=== PATIENT | male | born 1960 | race Caucasian/White ===

== ENCOUNTER 2017-08-02 15:44 | Inpatient (IN) | payer MEDICARE, OTHER ==
[~2017-08-02] VITALS: Ht 165.1 cm; Wt 68.8 kg
[2017-08-02 16:01] VITALS: BP 144/99; PULSE 75; RESP 16; TEMP 98.6; O2SAT 100
--- NOTE | 2017-08-02 16:08 | PD ---
HPI Chief Complaint: Psychiatric Symptoms Time Seen by Provider: 15:53 Travel History International Travel<30 days: No Contact w/Intl Traveler<30days: No Traveled to known affect area: No History of Present Illness HPI Patient was James acted and brought in for psychiatric evaluation. Patient was at a penitentiary. Patient was found combative, demented, unable to care for himself. Patient denies any headache. Patient denies chest pain or shortness of breath. Patient denies abdominal pain. Patient would not tell me about his past medical history. Patient would not tell me if he is on any routine medication. Patient would not tell me his allergy. PFSH Social History Tobacco Use: No Allergies-Medications (Allergen,Severity, Reaction): Coded Allergies: Unable to Assess (Verified Allergy, Unknown, 08/02/17) Review of Systems General / Constitutional: No: Fever Eyes: No: Visual changes HENT: No: Headaches Cardiovascular: No: Chest Pain or Discomfort Respiratory: No: Shortness of Breath Gastrointestinal: No: Abdominal Pain Genitourinary: No: Dysuria Musculoskeletal: No: Pain Skin: No Rash Neurologic: No: Weakness Psychiatric: No: Depression Endocrine: No: Polydipsia Hematologic/Lymphatic: No: Easy Bruising Physical Exam Narrative GENERAL: Well-nourished, well-developed patient. SKIN: Focused skin assessment warm/dry. HEAD: Normocephalic. EYES: No scleral icterus. No injection or drainage. NECK: Supple, trachea midline. No JVD or lymphadenopathy. CARDIOVASCULAR: Regular rate and rhythm without murmurs, gallops, or rubs. RESPIRATORY: Breath sounds equal bilaterally. No accessory muscle use. GASTROINTESTINAL: Abdomen soft, non-tender, nondistended. MUSCULOSKELETAL: No cyanosis, or edema. BACK: Nontender without obvious deformity. No CVA tenderness. Neurologic exam: Patient awake and alert. Patient sometimes combative. Patient responded to questions occasionally. Patient moves all extremity well. No obvious focal neurological deficit. Data Data Last Documented VS Vital Signs Date Time Temp Pulse Resp B/P (MAP) Pulse Ox O2 Delivery O2 Flow Rate FiO2 08/02/17 16:01 98.6 75 16 144/99 (114) 100 Orders Orders Haloperidol Inj (Haldol Inj) (08/02/17 16:15) Lorazepam Inj (Ativan Inj) (08/02/17 16:15) Complete Blood Count With Diff (08/02/17 16:57) Comprehensive Metabolic Panel (08/02/17 16:57) Psych Screen (08/02/17 16:57) Drug Screen, Random Urine (08/02/17 16:57) MDM Medical Decision Making Medical Screen Exam Complete: Yes Emergency Medical Condition: Yes Differential Diagnosis Differential diagnosis including dementia, psychosis, schizophrenia, personality disorder. Narrative Course 57-year-old male with confusion, combative. History of dementia. Haldol 5 mg IM and Ativan 2 mg IM given. Vu Lanier MD Aug 02, 2017 16:08
[2017-08-02] MEDS ORDERED: LORazepam 2 MG/ML VIAL IM ONE (16:15)
[2017-08-02] MEDS ORDERED: HALOPERIDOL LACTATE 5 MG/ML AMP IM ONE (16:15)
[2017-08-02 17:53] LABS: AUTOMATED NEUTROPHIL # 6.6 TH/MM3 (1.8-7.7); BASOPHIL % 0.3 % (0.0-2.0); EOSINOPHIL % 0.2 % (0.0-4.0); HEMATOCRIT 39.6 % (39.0-51.0); HEMOGLOBIN 13.8 GM/DL (13.0-17.0); LYMPH % 17.2 % (9.0-44.0); LYMPHOCYTE # 1.5 TH/MM3 (1.0-4.8); MEAN CELL VOLUME 89.8 FL (80.0-100.0); MEAN CORPUSCULAR HEMOGLOBIN 31.2 PG (27.0-34.0); MEAN CORPUSCULAR HGB CONC 34.7 % (32.0-36.0); MEAN PLATELET VOLUME 8.2 FL (7.0-11.0); MONO % 4.7 % (0.0-8.0); MONOCYTE # 0.4 TH/MM3 (0-0.9); NEUT % 77.6 % (16.0-70.0); PLATELET COUNT 215 TH/MM3 (150-450); RED BLOOD COUNT 4.41 MIL/MM3 (4.50-5.90); RED CELL DISTRIBUTION WIDTH 12.8 % (11.6-17.2); WHITE BLOOD COUNT 8.5 TH/MM3 (4.0-11.0)
[2017-08-02 18:18] LABS: ALBUMIN 3.4 GM/DL (3.4-5.0); ALT (GPT) 21 U/L (12-78); AST (GOT) 28 U/L (15-37); BICARBONATE 24.6 MEQ/L (21.0-32.0); BLOOD UREA NITROGEN 11 MG/DL (7-18); CALCIUM 8.8 MG/DL (8.5-10.1); CHLORIDE 107 MEQ/L (98-107); CREATININE 0.85 MG/DL (0.60-1.30); GLOMERULAR FILTRATION RATE 94 ML/MIN (>89); GLUCOSE,RANDOM 104 MG/DL (74-106); SODIUM (NA) 139 MEQ/L (136-145)
[2017-08-02 18:21] LABS: ALKALINE PHOSPHATASE 106 U/L (45-117); TOTAL BILIRUBIN ADULT 0.5 MG/DL (0.2-1.0); TOTAL PROTEIN 6.4 GM/DL (6.4-8.2)
[2017-08-03 01:15] VITALS: BP 111/66; PULSE 82; RESP 16; O2SAT 95
[2017-08-03 01:25] VITALS: BP 131/72; PULSE 85; RESP 18; TEMP 97.6; O2SAT 98
[2017-08-03 09:30] VITALS: BP 111/66; PULSE 75; RESP 20
[2017-08-03 18:30] VITALS: BP 111/60; PULSE 79; RESP 16
[2017-08-04 06:14] VITALS: BP 129/65; PULSE 82; RESP 18; O2SAT 99
[2017-08-04 10:41] VITALS: BP 109/60; PULSE 72; RESP 18; TEMP 99.1; O2SAT 97
[2017-08-04] MEDS ORDERED: LORazepam 1 MG TAB PO PRN (13:00)
[2017-08-04] MEDS ORDERED: diphenhydrAMINE HCL 50 MG/ML VIAL IM PRN (13:00)
[2017-08-04] MEDS ORDERED: diphenhydrAMINE HCL 50 MG CAP PO PRN (13:00)
[2017-08-04] MEDS ORDERED: ALUMINUM/MAGNESIUM/SIMETH 30 ML CUP PO PRN (13:00)
[2017-08-04] MEDS ORDERED: ACETAMINOPHEN 325 MG TAB PO PRN (13:00)
[2017-08-04] MEDS ORDERED: MAGNESIUM HYDROXIDE SUSP 30 ML CUP PO PRN (13:00)
[2017-08-04] MEDS ORDERED: LORazepam 2 MG/ML VIAL IM PRN (13:00)
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
[2017-08-04 16:45] VITALS: BP 121/71; PULSE 62; RESP 16; TEMP 97.6; O2SAT 99
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
[2017-08-04] MEDS ORDERED: POTASSIUM CHLORIDE 20 MEQ CONTROLLED RELEASE TAB PO ONE (17:45)
[2017-08-05 05:47] VITALS: BP 115/61; PULSE 62; RESP 18; TEMP 98; O2SAT 98
[2017-08-05 08:57] LABS: AUTOMATED NEUTROPHIL # 5.1 TH/MM3 (1.8-7.7); BASOPHIL % 0.5 % (0.0-2.0); EOSINOPHIL # 0.1 TH/MM3 (0-0.4); EOSINOPHIL % 1.4 % (0.0-4.0); HEMATOCRIT 40.4 % (39.0-51.0); HEMOGLOBIN 13.6 GM/DL (13.0-17.0); LYMPH % 26.1 % (9.0-44.0); MEAN CELL VOLUME 90.5 FL (80.0-100.0); MEAN CORPUSCULAR HEMOGLOBIN 30.4 PG (27.0-34.0); MEAN CORPUSCULAR HGB CONC 33.6 % (32.0-36.0); MONO % 4.9 % (0.0-8.0); MONOCYTE # 0.4 TH/MM3 (0-0.9); NEUT % 67.1 % (16.0-70.0); PLATELET COUNT 210 TH/MM3 (150-450); RED BLOOD COUNT 4.47 MIL/MM3 (4.50-5.90); WHITE BLOOD COUNT 7.6 TH/MM3 (4.0-11.0)
--- NOTE | 2017-08-05 09:09 | HHI.PYPN ---
Subjective Remarks Patient seen and examined with nurse. Chart reviewed. Case discussed with nursing staff. On my examination today, the patient presents as an extremely vague historian. He is oriented to person, place and year. He gives the month as August. His registration is 3 out of 3 in his recall is one out of 3 at 5 minutes. He is able to spell the word world forwards and gives it backwards as DLORW. Mood is "fine," sleep and appetite fair. Denies any suicidal or homicidal ideation. Denies any audiovisual hallucinations. No physical complaints at this time. Patient apparently follows at [facility]. I called over to [facility] to get up-to-date med list. Last Rx is from June for: Risperdal 2mg PO BID Cogentin 2mg PO BID. Review of Systems ROS Limitations: Poor Historian Except as stated in HPI: all other systems reviewed are Neg Mental Status Examination Appearance: Appropriate Consciousness: Alert Orientation: Person, Place, Date/Time (year) Motor Activity: Other (no motor abnormalities noted) Speech: Hesitant, Slow Language: Adequate Fund of Knowledge: Adequate Attention and Concentration: Inadequate Memory: Impaired (see above) Mood: Other ("fine") Affect: Flat Thought Process & Associations: Linear (somewhat slowed) Thought Content: Other (vague) Hallucination Type: None Delusion Type: None Suicidal Ideation: No Suicidal Plan: No Suicidal Intention: No Homicidal Ideation: No Homicidal Plan: No Homicidal Intention: No Insight: Fair Judgment: Adequate (perhaps fair) Results Labs Test 08/05/17 07:30 White Blood Count 7.6 TH/MM3 Red Blood Count 4.47 MIL/MM3 Hemoglobin 13.6 GM/DL Hematocrit 40.4 % Mean Corpuscular Volume 90.5 FL Mean Corpuscular Hemoglobin 30.4 PG Mean Corpuscular Hemoglobin Concent 33.6 % Red Cell Distribution Width 13.0 % Platelet Count 210 TH/MM3 Mean Platelet Volume 8.0 FL Neutrophils (%) (Auto) 67.1 % Lymphocytes (%) (Auto) 26.1 % Monocytes (%) (Auto) 4.9 % Eosinophils (%) (Auto) 1.4 % Basophils (%) (Auto) 0.5 % Neutrophils # (Auto) 5.1 TH/MM3 Lymphocytes # (Auto) 2.0 TH/MM3 Monocytes # (Auto) 0.4 TH/MM3 Eosinophils # (Auto) 0.1 TH/MM3 Basophils # (Auto) 0.0 TH/MM3 CBC Comment DIFF FINAL Differential Comment Labs reviewed. I note hypokalemia has resolved. EKG sinus bradycardia QTc 408ms. 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 To consider DUFF antipsychotic such as Consta or Sustenna. Follow-up OT eval. Continue to monitor on inpatient unit. Hospitalist input noted and appreciated. Continue other meds and care as ordered. Pt may sign voluntary. Justification for Cont. Inpt. Monitoring for impairments in safety Discharge Planning ELOS: 3-5 days. Request HC Surrog/Guard Advoc?: No Neal Ortiz MD Aug 05, 2017 09:09
[2017-08-05 09:43] LABS: ALBUMIN 2.9 GM/DL (3.4-5.0); AST (GOT) 15 U/L (15-37); BICARBONATE 25.8 MEQ/L (21.0-32.0); BLOOD UREA NITROGEN 7 MG/DL (7-18); CALCIUM 8.5 MG/DL (8.5-10.1); CHLORIDE 108 MEQ/L (98-107); CREATININE 0.69 MG/DL (0.60-1.30); GLOMERULAR FILTRATION RATE 119 ML/MIN (>89); GLUCOSE,RANDOM 85 MG/DL (74-106); SODIUM (NA) 141 MEQ/L (136-145)
[2017-08-05 09:45] LABS: CHOLESTEROL 138 MG/DL (120-200); TRIGLYCERIDES 110 MG/DL (42-150)
[2017-08-05 09:57] LABS: ALKALINE PHOSPHATASE 101 U/L (45-117); ALT (GPT) 20 U/L (12-78); CHOLESTEROL/ HDL RATIO 3.32 RATIO; HDL CHOLESTEROL 41.5 MG/DL (40.0-60.0); LDL CHOLESTEROL 75 MG/DL (0-99); TOTAL BILIRUBIN ADULT 0.2 MG/DL (0.2-1.0); TOTAL PROTEIN 5.5 GM/DL (6.4-8.2)
--- NOTE | 2017-08-05 12:18 | EKG ---
Date Performed: 08/05/2017 Time Performed: 07:51:14 PTAGE: 57 years EKG: SINUS BRADYCARDIA WITH SINUS ARRHYTHMIA BORDERLINE ECG NO PREVIOUS TRACING DOCTOR: Neal Page Interpretating Date/Time 08/05/2017 12:13:28
[2017-08-05 17:37] VITALS: BP 92/50; PULSE 59; RESP 18; TEMP 97.9; O2SAT 98
[2017-08-05] MEDS: risperiDONE ODT 2 MG TAB PO SCH (20:32)
[2017-08-05] MEDS: BENZTROPINE MESYLATE 2 MG TAB PO SCH (20:32)
[2017-08-06 05:46] VITALS: BP 106/65; PULSE 58; RESP 16; TEMP 97.2; O2SAT 98
[2017-08-06] MEDS: risperiDONE ODT 2 MG TAB PO SCH ×2 (08:45→20:54)
[2017-08-06] MEDS: BENZTROPINE MESYLATE 2 MG TAB PO SCH ×2 (08:45→20:53)
--- NOTE | 2017-08-06 08:55 | HHI.PYPN ---
Subjective Remarks Patient seen and examined. Chart reviewed. Case discussed in treatment team. Nurse reports that patient is complaining of headache but otherwise has been no significant behavioral problem. On my examination today, the patient reports mood is "fine." Affect remains flat. Denies any AVH. Denies SI or HI. Reports that he was in sober living because of cannabis use. Denies side effects from medications. Complains of left-sided headache with possible photophobia. Says that this is a typical headache for him and that he usually gets relief from Aleve. No other physical complaints. Review of Systems ROS Limitations: Poor Historian Except as stated in HPI: all other systems reviewed are Neg Mental Status Examination Appearance: Appropriate Consciousness: Alert Orientation: Person, Place (at least) Motor Activity: Other (no motor abnormalities noted) Speech: Slow Language: Adequate Fund of Knowledge: Adequate Attention and Concentration: Inadequate Mood: Other ("fine") Affect: Flat Thought Process & Associations: Linear (somewhat slowed) Thought Content: Other (vague) Hallucination Type: None Delusion Type: None Suicidal Ideation: No Suicidal Plan: No Suicidal Intention: No Homicidal Ideation: No Homicidal Plan: No Homicidal Intention: No Insight: Fair Judgment: Adequate (perhaps fair) Results Labs Labs reviewed Vitals/IOs Vital Signs Date Time Temp Pulse Resp B/P (MAP) Pulse Ox O2 Delivery O2 Flow Rate FiO2 08/06/17 05:46 97.2 58 16 106/65 (79) 98 08/04/17 10:41 Room Air Assessment & Plan Problem List: (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 I did offer the patient a long -acting injectable antipsychotic but he is not presently interested in this option. Naproxen for headache. Continue to monitor on the inpatient unit. Continue other medications and care as ordered. Justification for Cont. Inpt. Risk for decompensation. Discharge Planning Case discussed with counselor. Could consider return to sober living versus other placement. Request HC Surrog/Guard Advoc?: No Neal Ortiz MD Aug 06, 2017 08:55
[2017-08-06] MEDS ORDERED: NAPROXEN 500 MG TAB PO PRN (09:00)
--- NOTE | 2017-08-06 15:24 | PD.TTN ---
Patient Problems 1. Discharge planning 2. Medication compliance 3. Knowledge deficit 4. Lack of coping skills Progress Toward Goals Provider Present: Dr. Angelika Ortiz Provider Input: Pt medication regiment is being evaluated including possible addition of a mood stabilizer. Nurse(s) Present: Anisha Justice, RN Nurse(s) Input: Pt appears paranoid, watchful, flat, to be responding to internal stimuli and with poor response on unit. Psychiatric Counselors Present: MIGUEL ANGEL Mars Psych Therapist Input: Pt appears paranoid, delusional, suspicious, organized, oriented and to be responding to internal stimuli. Insight into condition and need for care appeared poor. Pt appears to be able to utilize coping and emotional regulation skills as he has had no outbursts on unit. He is guarded and limited in his interaction at this time. Group Spec/RT/OT/RUBIN Present: SCOTTIE Durham Group Spec/RT/OT/RUBIN Input: Pt is unknown to RUBIN and did not attend groups. Discharge Plan SMA Pt will be discharged home and will be set up with outpatient follow up services for medication management. Documentation Scribe: MIGUEL ANGEL Mars Jonathan LMHC Aug 06, 2017 15:24
[2017-08-06 16:43] VITALS: BP 102/56; PULSE 78; RESP 18; TEMP 98.5; O2SAT 97
[2017-08-07 05:44] VITALS: BP 100/64; PULSE 64; RESP 16; TEMP 98.3; O2SAT 97
[2017-08-07] MEDS: risperiDONE ODT 2 MG TAB PO SCH (09:04)
[2017-08-07] MEDS: BENZTROPINE MESYLATE 2 MG TAB PO SCH ×2 (09:04→20:47)
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
[2017-08-07 17:41] VITALS: BP 116/69; PULSE 85; RESP 17; TEMP 98.9; O2SAT 98
[2017-08-07] MEDS: risperiDONE ODT 3 MG TAB PO SCH (20:47)
[2017-08-08 05:57] VITALS: BP 104/60; PULSE 64; RESP 16; TEMP 97.8; O2SAT 98
[2017-08-08] MEDS: BENZTROPINE MESYLATE 2 MG TAB PO SCH ×3 (09:00→22:06)
[2017-08-08] MEDS: risperiDONE ODT 3 MG TAB PO SCH ×2 (09:00→21:58)
--- NOTE | 2017-08-08 11:03 | HHI.PYPN ---
Subjective Remarks Patient seen and examined with counselor and nurse. Chart reviewed. Case discussed with counselor and nurse. No behavioral issues noted overnight. Counselor notes the patient is not welcome to return to [facility], and counselor is looking into alternative placements such as [facility] [place]. On my examination today, the patient seems more interactive with less thought blocking since Risperdal was titrated. He denies AVH. He denies SI or HI. He complains of some subjective stiffness since Risperdal was titrated, but there is no objective evidence on exam. Indeed, when I examined the patient for cogwheeling or stiffness, he purposefully increases his tone to simulate hypertonia, although this disappears with distraction. He remains a little suspicious of medications and declines long-acting injectable antipsychotic when offered. Some mild constipation; still passing flatus. Declines bowel regimen when offered. No other physical complaints or side effects reported. Review of Systems ROS Limitations: Poor Historian Except as stated in HPI: all other systems reviewed are Neg Mental Status Examination Appearance: Appropriate Consciousness: Alert Orientation: Person, Place Motor Activity: Other (no hand tremor, no cogwheeling, no increased muscle tone. No dystonias or dyskinesias noted. No other motor abnormalities noted.) Speech: Slow Language: Adequate Fund of Knowledge: Adequate Attention and Concentration: Adequate Memory: Unremarkable Mood: Other (mildly dysphoric) Affect: Blunt (a little more reactive today) Thought Process & Associations: Linear Thought Content: Thought blocking (decreased), Other (vague) Hallucination Type: None Delusion Type: None Suicidal Ideation: No Suicidal Plan: No Suicidal Intention: No Homicidal Ideation: No Homicidal Plan: No Homicidal Intention: No Insight: Fair Judgment: Adequate (fair at best) Results Labs Labs reviewed. No new labs. 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 Patient continues to decline a long-acting injectable antipsychotic. Patient requesting titration of Cogentin to target subjective stiffness, although there is no objective evidence of this on exam. I have discussed with him the risks and benefits of such a maneuver, and he persists in his desire to titrate the Cogentin. Increase Cogentin to 2 mg 3 times daily. Continue to monitor on the inpatient unit. Continue other medications and care as ordered. Justification for Cont. Inpt. Med changes. Risk for decompensation in less restrictive environment. Discharge Planning Counselor exploring alternative placement options. Request HC Surrog/Guard Advoc?: No Neal Ortiz MD Aug 08, 2017 11:03
[2017-08-08 17:54] VITALS: BP 122/69; PULSE 68; RESP 16; TEMP 97.8; O2SAT 98
[2017-08-09 05:37] VITALS: BP 116/65; PULSE 97; RESP 18; TEMP 97.9; O2SAT 97
[2017-08-09] MEDS: risperiDONE ODT 3 MG TAB PO SCH ×2 (08:38→21:01)
[2017-08-09] MEDS: BENZTROPINE MESYLATE 2 MG TAB PO SCH ×3 (08:38→21:01)
--- NOTE | 2017-08-09 10:00 | HHI.PYPN ---
Subjective Remarks Patient seen and examined. Chart reviewed. Case discussed in treatment team. Per nursing staff, patient is medication compliant but seclusive to room. On my examination today, the patient reports mood is stable. He denies any suicidal or homicidal ideation. Denies any audiovisual hallucinations. I can elicit no delusional material. Denies side effects from medications. Says increased dose of Cogentin is helping with subjective stiffness. No other physical complaints. He continues to decline long-acting injectable antipsychotic. Remains agreeable to assisted living placement. Review of Systems Except as stated in HPI: all other systems reviewed are Neg Mental Status Examination Appearance: Appropriate Consciousness: Alert Orientation: Person, Place Motor Activity: Other (no motor abnormalities noted.) Speech: Unremarkable Language: Adequate Fund of Knowledge: Adequate Attention and Concentration: Adequate Memory: Unremarkable Mood: Other (stable) Affect: Blunt (remains blunted if a little bit more reactive today) Thought Process & Associations: Logical, Linear Thought Content: Appropriate Hallucination Type: None Delusion Type: None Suicidal Ideation: No Suicidal Plan: No Suicidal Intention: No Homicidal Ideation: No Homicidal Plan: No Homicidal Intention: No Insight: Fair Judgment: Adequate (fair) Results Labs Labs reviewed. No new labs. 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 Patient continues to decline long- acting injectable. Continue to monitor on the inpatient unit. Continue other medications and care as ordered. Justification for Cont. Inpt. Risk for decompensation in less restrictive environment. Discharge Planning Counselor working on [facility] placement. Anticipate discharge Saturday. Request HC Surrog/Guard Advoc?: No Neal Ortiz MD Aug 09, 2017 10:00
--- NOTE | 2017-08-09 15:00 | PD.TTN ---
Patient Problems 1. Discharge planning 2. Medication compliance 3. Knowledge deficit 4. Lack of coping skills Progress Toward Goals Provider Present: Dr. Angelika Ortiz Provider Input: Pt medication regiment is being evaluated including possible addition of a mood stabilizer. 08-09-17, OT evaluation requested, and further medical stabilization requested. Nurse(s) Present: Anisha Justice, RN Nurse(s) Input: Pt appears paranoid, watchful, flat, to be responding to internal stimuli and with poor response on unit. Psychiatric Counselors Present: MIGUEL ANGEL Mars [address] Jennings, Jr., [facility] Psych Therapist Input: Pt appears paranoid, delusional, suspicious, organized, oriented and to be responding to internal stimuli. Insight into condition and need for care appeared poor. Pt appears to be able to utilize coping and emotional regulation skills as he has had no outbursts on unit. He is guarded and limited in his interaction at this time. 08-09-17, Imtiaz from [place] will meet with pt on 08-10-17 to assess for placement. Group Spec/RT/OT/RUBIN Present: SCOTTIE Durham Group Spec/RT/OT/RUBIN Input: Pt is unknown to RUBIN and did not attend groups. Occupational Therapist Input: Poor attendance in groups, recieving skilled occupational therapy . Discharge Plan SMA Pt will be discharged home and will be set up with outpatient follow up services for medication management. Documentation Scribe: MIGUEL ANGEL Mars Lane Jr, [facility] Aug 09, 2017 15:00
--- NOTE | 2017-08-09 15:00 | PD.TTN ---
Patient Problems 1. Discharge planning 2. Medication compliance 3. Knowledge deficit 4. Lack of coping skills Progress Toward Goals Provider Present: Dr. Angelika Ortiz Provider Input: Pt medication regiment is being evaluated including possible addition of a mood stabilizer. 08-09-17, OT evaluation requested, and further medical stabilization requested. Nurse(s) Present: Anisha Justice, RN Nurse(s) Input: Pt appears paranoid, watchful, flat, to be responding to internal stimuli and with poor response on unit. Psychiatric Counselors Present: MIGUEL ANGEL [address] Jennings, Jr., [facility] Psych Therapist Input: Pt appears paranoid, delusional, suspicious, organized, oriented and to be responding to internal stimuli. Insight into condition and need for care appeared poor. Pt appears to be able to utilize coping and emotional regulation skills as he has had no outbursts on unit. He is guarded and limited in his interaction at this time. 08-09-17, Imtiaz from [facility] will meet with pt on 08-10-17 to assess for placement. Group Spec/RT/OT/RUBIN Present: SCOTTIE Durham Group Spec/RT/OT/RUBIN Input: Pt is unknown to RUBIN and did not attend groups. Occupational Therapist Input: Poor attendance in groups, recieving skilled occupational therapy . Discharge Plan SMA Pt will be discharged home and will be set up with outpatient follow up services for medication management. Documentation Scribe: MIGUEL AGNEL Mars Lane Jr, SILK FOLDER Aug 09, 2017 15:00
--- NOTE | 2017-08-09 15:00 | PD.TTN ---
Patient Problems 1. Discharge planning 2. Medication compliance 3. Knowledge deficit 4. Lack of coping skills Progress Toward Goals Provider Present: Dr. Angelika Ortiz Provider Input: Pt medication regiment is being evaluated including possible addition of a mood stabilizer. 08-09-17, OT evaluation requested, and further medical stabilization requested. Nurse(s) Present: Anisha Justice, RN Nurse(s) Input: Pt appears paranoid, watchful, flat, to be responding to internal stimuli and with poor response on unit. Psychiatric Counselors Present: MIGUEL ANGEL Mars Lane Jennings, Jr., [facility] Psych Therapist Input: Pt appears paranoid, delusional, suspicious, organized, oriented and to be responding to internal stimuli. Insight into condition and need for care appeared poor. Pt appears to be able to utilize coping and emotional regulation skills as he has had no outbursts on unit. He is guarded and limited in his interaction at this time. 08-09-17, Imtiaz from [place] will meet with pt on 08-10-17 to assess for placement. Group Spec/RT/OT/RUBIN Present: SCOTTIE Durham Group Spec/RT/OT/RUBIN Input: Pt is unknown to RUBIN and did not attend groups. Occupational Therapist Input: Poor attendance in groups, recieving skilled occupational therapy . Discharge Plan SMA Pt will be discharged home and will be set up with outpatient follow up services for medication management. Documentation Scribe: MIGUEL ANGEL Mars Lane Jr, PRINTER TECHNICIAN Aug 09, 2017 15:00
[2017-08-09 17:30] VITALS: BP 114/71; PULSE 97; RESP 18; TEMP 98.3; O2SAT 97
[2017-08-10 05:49] VITALS: BP 116/65; PULSE 65; RESP 18; TEMP 97.5; O2SAT 97
[2017-08-10] MEDS: BENZTROPINE MESYLATE 2 MG TAB PO SCH ×3 (08:39→20:27)
[2017-08-10] MEDS: risperiDONE ODT 3 MG TAB PO SCH ×2 (08:39→20:27)
--- NOTE | 2017-08-10 11:20 | HHI.PYPN ---
Subjective Remarks Pt seen and discussed with staff. Chart reviewed. He is compliant with medications and denies side effects. He has been seclusive to room, only coming out for room. He interacts minimally on unit and is very flat of affect. No aggression. No SI/HI He states that he thinks risperidone is helping with mood swings and he is feeling less irritable. Mental Status Examination Appearance: Appropriate Consciousness: Alert Orientation: Person, Place Motor Activity: Other (no motor abnormalities noted.) Speech: Unremarkable Language: Adequate Fund of Knowledge: Adequate Attention and Concentration: Adequate Memory: Unremarkable Mood: Other (calm) Affect: Blunt Thought Process & Associations: Logical, Linear Thought Content: Appropriate Hallucination Type: None Delusion Type: None Suicidal Ideation: No Suicidal Plan: No Suicidal Intention: No Homicidal Ideation: No Homicidal Plan: No Homicidal Intention: No Insight: Fair Judgment: Adequate Results Vitals/IOs Vital Signs Date Time Temp Pulse Resp B/P (MAP) Pulse Ox O2 Delivery O2 Flow Rate FiO2 08/10/17 05:49 97.5 65 18 116/65 (82) 97 Assessment & Plan Problem List: (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 Continue current tx plan. Estimated LOS: days Justification for Cont. Inpt. risk of decompensation Request HC Surrog/Guard Advoc?: Riana Cortés MD Aug 10, 2017 11:20
[2017-08-10 18:01] VITALS: BP 120/76; PULSE 67; RESP 16; TEMP 98.2; O2SAT 99
[2017-08-11 05:58] VITALS: BP 150/64; PULSE 104; RESP 18; TEMP 98.4; O2SAT 97
[2017-08-11] MEDS: risperiDONE ODT 3 MG TAB PO SCH ×2 (08:24→20:54)
[2017-08-11] MEDS: BENZTROPINE MESYLATE 2 MG TAB PO SCH ×3 (08:24→20:54)
--- NOTE | 2017-08-11 13:07 | HHI.PYPN ---
Subjective Remarks Pt seen and discussed with staff. Pt has been seclusive to room but has been pleasant and cooperative. He has been compliant iw medications and denies side effects. No SI/HI. He is disheveled. No behavioral problems. Mental Status Examination Appearance: Appropriate Consciousness: Alert Orientation: Person, Place Motor Activity: Other (no motor abnormalities noted.) Speech: Unremarkable Language: Adequate Fund of Knowledge: Adequate Attention and Concentration: Adequate Memory: Unremarkable Mood: Other (calm) Affect: Blunt Thought Process & Associations: Logical, Linear Thought Content: Appropriate Hallucination Type: None Delusion Type: None Suicidal Ideation: No Suicidal Plan: No Suicidal Intention: No Homicidal Ideation: No Homicidal Plan: No Homicidal Intention: No Insight: Fair Judgment: Adequate Results Vitals/IOs Vital Signs Date Time Temp Pulse Resp B/P (MAP) Pulse Ox O2 Delivery O2 Flow Rate FiO2 08/11/17 05:58 98.4 104 18 150/64 (92) 97 Assessment & Plan Problem List: (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 Estimated LOS: days Justification for Cont. Inpt. risk of decompensation Request HC Surrog/Guard Advoc?: No Riana Pope MD Aug 11, 2017 13:06
[2017-08-11 17:10] VITALS: BP 118/66; PULSE 86; RESP 18; TEMP 98.5; O2SAT 96
[2017-08-12] MEDS: risperiDONE ODT 3 MG TAB PO SCH (08:56)
[2017-08-12] MEDS: BENZTROPINE MESYLATE 2 MG TAB PO SCH ×2 (08:56→13:17)
[2017-08-12] MEDS ORDERED: Benztropine PO (10:37)
[2017-08-12] MEDS ORDERED: RISP3 PO (10:37)
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
== END 2017-08-12 15:40 | DRG 885 ==
LOC: NEPD 15:44 → NEDA 08-04 12:50 → H270 08-04 15:32
PROVIDERS: ADMIT Psychiatry & Neurology Psychiatry; ATTEND Psychiatry & Neurology Psychiatry
DX: F20.5 Residual schizophrenia (principal); R64 Cachexia; E46 Unspecified protein-calorie malnutrition; Z91.19 Patient's noncompliance with other medical treatment and regimen; I10 Essential (primary) hypertension; F17.210 Nicotine dependence, cigarettes, uncomplicated; E87.6 Hypokalemia; Z68.25 Body mass index [BMI] 25.0-25.9, adult; R51 Headache
CPT/HCPCS: 80053; 80061; 80307; 83036; 84443; 85025; 93005; 96372; J1630; J2060

== ENCOUNTER 2017-09-09 21:23 | Inpatient (IN) | payer MEDICARE ==
[~2017-09-09] VITALS: Ht 170.2 cm; Wt 67.0 kg
[~2017-09-09 21:23] MED LIST: Benztropine PO; RISP3 PO
[2017-09-09 22:15] VITALS: BP 150/89; PULSE 75; RESP 18; O2SAT 98
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
[2017-09-10 00:15] LABS: BASOPHIL # 0.1 TH/MM3 (0-0.2); BASOPHIL % 0.5 % (0.0-2.0); EOSINOPHIL % 0.5 % (0.0-4.0); HEMATOCRIT 40.1 % (39.0-51.0); HEMOGLOBIN 13.7 GM/DL (13.0-17.0); LYMPH % 22.4 % (9.0-44.0); LYMPHOCYTE # 2.2 TH/MM3 (1.0-4.8); MEAN CELL VOLUME 91.9 FL (80.0-100.0); MEAN CORPUSCULAR HEMOGLOBIN 31.3 PG (27.0-34.0); MEAN CORPUSCULAR HGB CONC 34.1 % (32.0-36.0); MEAN PLATELET VOLUME 7.5 FL (7.0-11.0); MONO % 5.4 % (0.0-8.0); MONOCYTE # 0.5 TH/MM3 (0-0.9); NEUT % 71.2 % (16.0-70.0); PLATELET COUNT 206 TH/MM3 (150-450); RED BLOOD COUNT 4.37 MIL/MM3 (4.50-5.90); RED CELL DISTRIBUTION WIDTH 13.3 % (11.6-17.2); WHITE BLOOD COUNT 9.8 TH/MM3 (4.0-11.0)
[2017-09-10 00:33] LABS: ALBUMIN 3.3 GM/DL (3.4-5.0); AST (GOT) 12 U/L (15-37); BICARBONATE 28.5 MEQ/L (21.0-32.0); BLOOD UREA NITROGEN 9 MG/DL (7-18); CALCIUM 8.7 MG/DL (8.5-10.1); CHLORIDE 108 MEQ/L (98-107); GLOMERULAR FILTRATION RATE 100 ML/MIN (>89); GLUCOSE,RANDOM 127 MG/DL (74-106); SODIUM (NA) 143 MEQ/L (136-145)
[2017-09-10 00:36] LABS: ALKALINE PHOSPHATASE 88 U/L (45-117); ALT (GPT) 19 U/L (12-78); TOTAL BILIRUBIN ADULT 0.2 MG/DL (0.2-1.0); TOTAL PROTEIN 6.1 GM/DL (6.4-8.2)
[2017-09-10 06:43] VITALS: BP 148/73; PULSE 64; RESP 18
[2017-09-10 10:24] VITALS: BP 143/78; PULSE 71; RESP 18; O2SAT 100
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
[2017-09-10] MEDS ORDERED: ACETAMINOPHEN 325 MG TAB PO PRN (15:00)
[2017-09-10] MEDS ORDERED: ALUMINUM/MAGNESIUM/SIMETH 30 ML CUP PO PRN (15:00)
[2017-09-10] MEDS ORDERED: diphenhydrAMINE HCL 50 MG/ML VIAL IM PRN (15:00)
[2017-09-10] MEDS ORDERED: MAGNESIUM HYDROXIDE SUSP 30 ML CUP PO PRN (15:00)
[2017-09-10 15:42] VITALS: BP 124/62; PULSE 67; RESP 16; O2SAT 98
[2017-09-10 16:57] VITALS: BP 124/62; PULSE 67; RESP 16; O2SAT 98
[2017-09-10 19:15] VITALS: BP 130/78; PULSE 74; TEMP 98; O2SAT 99
[2017-09-10] MEDS: diphenhydrAMINE HCL 50 MG CAP PO PRN ×2 (20:44→20:51)
[2017-09-11 05:40] VITALS: RESP 17; TEMP 97.3; O2SAT 99
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
[2017-09-11] MEDS ORDERED: ARIPiprazole 15 MG TAB PO SCH (12:15)
[2017-09-11] MEDS ORDERED: LORazepam 2 MG/ML VIAL IM PRN (12:15)
[2017-09-11] MEDS ORDERED: LORazepam 1 MG TAB PO PRN (12:15)
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
[2017-09-12 05:58] VITALS: PULSE 89; RESP 18; TEMP 97.6; O2SAT 97
--- NOTE | 2017-09-12 12:48 | HHI.PYPN ---
Subjective Chief Complaint: Psychosis Remarks Patient seen and examined. Chart reviewed. Case discussed with nursing staff. No issues overnight. On my examination today, patient is secluding in his room. He remains internally stimulated and continues to mutter to himself at times. Psychotropics are unfortunately on hold for lack of consent, and I have tried to obtain from the patient the name of a contact who might service healthcare surrogate, but he cannot provide me with one. I have asked a counselor to further investigate whether a healthcare surrogate might be found in advance of the [place] act court next . No SI or HI. No physical complaints. Review of Systems ROS Limitations: Psychotic, Poor Historian Except as stated in HPI: all other systems reviewed are Neg Mental Status Examination Appearance: Disheveled Consciousness: Alert Orientation: Person Motor Activity: Other (no abnormal motor movements noted) Speech: Other (continues to mutter to himself) Language: Adequate, Other Fund of Knowledge: Adequate Attention and Concentration: Easily Distracted Mood: Other (calm) Affect: Flat Thought Process & Associations: Circumstantial Thought Content: Hallucinations, Delusional Hallucination Type: Auditory (remains frankly internally stimulated) Delusion Type: Paranoid Suicidal Ideation: No (unreliable to contract for safety) Suicidal Plan: No Suicidal Intention: No Homicidal Ideation: No (unreliable to contract for safety) Homicidal Plan: No Homicidal Intention: No Insight: Poor Judgment: Poor Results Labs Labs reviewed. No new labs. Prolactin level listed as "in process." Vitals/IOs Vital Signs Date Time Temp Pulse Resp B/P (MAP) Pulse Ox O2 Delivery O2 Flow Rate FiO2 09/12/17 05:58 97.6 89 18 97 09/11/17 05:40 09/10/17 16:57 Room Air Assessment & Plan Problem List: (1) Schizophrenia, undifferentiated, acute episode ICD Codes: F20.3 - Undifferentiated schizophrenia Assessment & Plan Psychotropics on hold awaiting consent. Counselor to investigate for possible healthcare surrogate to provide consent. EEG ordered, pending. Continue to monitor on high acuity unit. Continue other medications and care as ordered. Justification for Cont. Inpt. Impairment in reality construction. Concern for impairment in self-care. High risk for decompensation in less restrictive environment. Discharge Planning Pending psychiatric stabilization. Request HC Surrog/Guard Advoc?: Yes Neal Ortiz MD Sep 12, 2017 12:48
--- NOTE | 2017-09-13 11:07 | HHI.PYPN ---
Subjective Chief Complaint: Psychosis Remarks Patient seen and examined with nurse in counselor. Chart reviewed. Case discussed in treatment team. On my examination today, the patient remains floridly psychotic. Psychotropics are on hold unfortunately for lack of anyone to provide consent as the patient is incapacitated to provide consent. He remains internally stimulated and muttering to himself. Whenever I ask him about a psychiatric symptom, he once again mutters to himself the content of his AH. For example, when I ask if he is experiencing AH, he mutters to himself "they [i.e. team] don't need to know" and then answers me "no." He denies SI or HI but is clearly unreliable to contract for safety in his present state. We tried to obtain a contact number from him for someone to serve as healthcare surrogate. He did give the number for an aunt, Lawson, . Counselor and I both have tried to call this number and it rings without anyone picking up. No physical complaints. Review of Systems ROS Limitations: Psychotic, Poor Historian Except as stated in HPI: all other systems reviewed are Neg Mental Status Examination Appearance: Disheveled Consciousness: Alert Orientation: Person Motor Activity: Other (no abnormal motor movements noted) Speech: Other (continues again to mutter to himself) Language: Adequate, Other Fund of Knowledge: Adequate Attention and Concentration: Easily Distracted Mood: Other (calm) Affect: Flat Thought Process & Associations: Circumstantial Thought Content: Hallucinations, Delusional Hallucination Type: Auditory (remains internally stimulated) Delusion Type: Paranoid (remains highly paranoid) Suicidal Ideation: No (unreliable to contract for safety) Suicidal Plan: No Suicidal Intention: No Homicidal Ideation: No (unreliable to contract for safety) Homicidal Plan: No Homicidal Intention: No Insight: Poor Judgment: Poor Results Labs Labs reviewed. No new labs. Nurse tells me that patient flatly refused to participate in EEG. Vitals/IOs Vital Signs Date Time Temp Pulse Resp B/P (MAP) Pulse Ox O2 Delivery O2 Flow Rate FiO2 09/12/17 05:58 97.6 89 18 97 09/11/17 05:40 09/10/17 16:57 Room Air Assessment & Plan Problem List: (1) Schizophrenia, undifferentiated, acute episode ICD Codes: F20.3 - Undifferentiated schizophrenia Assessment & Plan Psychotropics remain on hold for lack of consent. We may try to reorder EEG if the patient is more compliant at some future point. Continue to monitor on the high acuity unit. Continue other medications and care as ordered. Justification for Cont. Inpt. Impairment in reality construction. High risk for decompensation in less restrictive environment. Discharge Planning Pending stabilization, although this will be considerably delayed if we cannot find someone to serve as health care surrogate. Request HC Surrog/Guard Advoc?: Yes Neal Ortiz MD Sep 13, 2017 11:07
--- NOTE | 2017-09-13 12:47 | PD.TTN ---
Patient Problems 1. Discharge planning 2. Medication compliance 3. Knowledge deficit 4. Lack of coping skills Progress Toward Goals Provider Present: Dr. Angelika Ortiz Provider Input: Pt remains psychotic, paranoid and medication regiment will continue to be evaluated as well as adjusted as needed. Psychiatric Counselors Present: MIGUEL ANGEL Mars Psych Therapist Input: Pt appears withdrawn, seclusive, psychotic, cooperative and appropriate. He continues to appear to be responding to internal stimuli. Pt presents with limited coping and emotional regulation skills. Pt has not been on medication to this point as team is awaiting HCS to provide consent for medication as he will not consent. Group Spec/RT/OT/RUBIN Present: SCOTTIE Durham Group Spec/RT/OT/RUBIN Input: Pt does not attend groups. Discharge Plan SMA Pt will likely need placement after discharge as he is currently homeless and will be referred to ALFs as he begins to stabilize further. Documentation Scribe: MIGUEL ANGEL Mars Jonathan LMHC Sep 13, 2017 12:47
--- NOTE | 2017-09-14 17:03 | HHI.PYPN ---
Subjective Chief Complaint: Psychosis Remarks Patient was seen and case discussed with nursing. Patient continues to have no guardian advocate and subsequently no medications on board. He is actively responding to voices during her interview. Fixed stare. Per nursing, he was saying the voices tell her not to talk to us. Try to run out of the unit when one of the staff members left. No ETO's today Mental Status Examination Appearance: Disheveled Consciousness: Alert Orientation: Person Motor Activity: Other (no abnormal motor movements noted) Speech: Other (continues again to mutter to himself) Language: Adequate, Other Fund of Knowledge: Adequate Attention and Concentration: Easily Distracted Mood: Other (calm) Affect: Flat Thought Process & Associations: Circumstantial Thought Content: Hallucinations, Delusional Hallucination Type: Auditory (remains internally stimulated) Delusion Type: Paranoid (remains highly paranoid) Suicidal Ideation: No (unreliable to contract for safety) Suicidal Plan: No Suicidal Intention: No Homicidal Ideation: No (unreliable to contract for safety) Homicidal Plan: No Homicidal Intention: No Insight: Poor Judgment: Poor Results Vitals/IOs Vital Signs Date Time Temp Pulse Resp B/P (MAP) Pulse Ox O2 Delivery O2 Flow Rate FiO2 09/12/17 05:58 97.6 89 18 97 09/11/17 05:40 09/10/17 16:57 Room Air Assessment & Plan Problem List: (1) Schizophrenia, undifferentiated, acute episode ICD Codes: F20.3 - Undifferentiated schizophrenia Assessment & Plan Continue current treatment plan Justification for Cont. Inpt. Patient would decompensate in a less restrictive setting Request HC Surrog/Guard Advoc?: Yes Clarence Guzman DO Sep 14, 2017 17:03
--- NOTE | 2017-09-15 15:46 | HHI.PYPN ---
Subjective Chief Complaint: Psychosis Remarks Patient was seen and case discussed with nursing. Patient remains seclusive to room. He is responding to internal stimuli during the interview looking about the room. He is disheveled and hypoverbal. Not a medication at this time. Nursing observed him having a full conversation with himself this morning Mental Status Examination Appearance: Disheveled Consciousness: Alert Orientation: Person Motor Activity: Other (no abnormal motor movements noted) Speech: Other (continues again to mutter to himself) Language: Adequate, Other Fund of Knowledge: Adequate Attention and Concentration: Easily Distracted Mood: Other (calm) Affect: Flat Thought Process & Associations: Loose associations Thought Content: Hallucinations, Delusional Hallucination Type: Auditory (remains internally stimulated) Delusion Type: Paranoid (remains highly paranoid) Suicidal Ideation: No (unreliable to contract for safety) Suicidal Plan: No Suicidal Intention: No Homicidal Ideation: No (unreliable to contract for safety) Homicidal Plan: No Homicidal Intention: No Insight: Poor Judgment: Poor Results Vitals/IOs Vital Signs Date Time Temp Pulse Resp B/P (MAP) Pulse Ox O2 Delivery O2 Flow Rate FiO2 09/12/17 05:58 97.6 89 18 97 Assessment & Plan Problem List: (1) Schizophrenia, undifferentiated, acute episode ICD Codes: F20.3 - Undifferentiated schizophrenia Assessment & Plan Continue current treatment plan Justification for Cont. Inpt. Patient would decompensate in a less restrictive setting Request HC Surrog/Guard Advoc?: Yes Clarence Guzman DO Sep 15, 2017 15:46
--- NOTE | 2017-09-16 09:15 | HHI.PYPN ---
Subjective Chief Complaint: Psychosis Remarks Patient seen and examined with nurse. Chart reviewed. Patient is taking his meals. Case discussed with nursing staff. Patient remains unmedicated for lack of HCS to provide consent for medications. Patient remains frankly internally stimulated. He continues to mutter to himself at intervals. I try to enter into a discussion with patient about medications to see if there was a chance he could provide consent, but he cannot follow this discussion because of his degree of psychotic impairment. He denies SI/HI. He concludes the interview by muttering to himself, "just walk away," at which point he arises, opens the door, and stands there expectantly until we depart. No physical complaints. Review of Systems ROS Limitations: Psychotic, Poor Historian Except as stated in HPI: all other systems reviewed are Neg Mental Status Examination Appearance: Disheveled Consciousness: Alert Orientation: Person Motor Activity: Other (No motor abnormalities noted) Speech: Other (continues to mutter to himself) Language: Adequate Fund of Knowledge: Adequate Attention and Concentration: Easily Distracted Mood: Other (calm) Affect: Flat (remains quite flat) Thought Process & Associations: Loose associations Thought Content: Hallucinations, Delusional Hallucination Type: Auditory (remains frankly internally stimulated) Delusion Type: Paranoid Suicidal Ideation: No (unreliable to contract for safety) Suicidal Plan: No Suicidal Intention: No Homicidal Ideation: No (unreliable to contract for safety) Homicidal Plan: No Homicidal Intention: No Insight: Poor Judgment: Poor Results Labs Labs reviewed. No new labs. Vitals/IOs Patient has refused vital signs since 09/12. Assessment & Plan Problem List: (1) Schizophrenia, undifferentiated, acute episode ICD Codes: F20.3 - Undifferentiated schizophrenia Assessment & Plan Patient remains severely decompensated with respect to his psychotic illness. Continue to monitor on the inpatient unit while we await healthcare surrogate or guardian advocate to provide consent for medications. Continue other medications and care as ordered. Justification for Cont. Inpt. Impairment in reality construction. High risk for decompensation in less restrictive environment. Discharge Planning Pending psychiatric stabilization. Request HC Surrog/Guard Advoc?: Yes Neal Ortiz MD Sep 16, 2017 09:15
--- NOTE | 2017-09-17 10:13 | HHI.PYPN ---
Subjective Chief Complaint: Psychosis Remarks Patient seen and examined with nurse. Chart reviewed. Patient continues to take his meals. Case discussed in treatment team. On my examination today, the patient remains frankly internally stimulated. He unfortunately remains unmedicated for lack of healthcare surrogate to provide consent. He remains paranoid, and after a brief time he once again opens up the door to his room and excuses us from the interview. No physical complaints. Review of Systems ROS Limitations: Psychotic, Poor Historian Except as stated in HPI: all other systems reviewed are Neg Mental Status Examination Appearance: Disheveled Consciousness: Alert Orientation: Person Motor Activity: Other (no motoric abnormalities noted) Speech: Other (continues to mutter to himself) Language: Adequate Fund of Knowledge: Adequate Attention and Concentration: Easily Distracted Mood: Other (calm) Affect: Flat Thought Process & Associations: Loose associations Thought Content: Hallucinations, Delusional Hallucination Type: Auditory (remains obviously internally stimulated) Delusion Type: Paranoid Suicidal Ideation: No Suicidal Plan: No Suicidal Intention: No Homicidal Ideation: No Homicidal Plan: No Homicidal Intention: No Insight: Poor Judgment: Poor Results Labs Labs reviewed. No new labs. Vitals/IOs Patient is refusing vital signs Assessment & Plan Problem List: (1) Schizophrenia, undifferentiated, acute episode ICD Codes: F20.3 - Undifferentiated schizophrenia Assessment & Plan Patient remains severely decompensated with respect to his psychotic illness. Continue to monitor on the high acuity unit while awaiting surrogate decision maker to initiate antipsychotic treatment. Continue other care as ordered. Justification for Cont. Inpt. Impairment in reality construction. High risk for decompensation in less restrictive environment. Discharge Planning Pending [facility] and thereafter psychiatric stabilization. Request HC Surrog/Guard Advoc?: Yes Neal Ortiz MD Sep 17, 2017 10:13
--- NOTE | 2017-09-17 13:01 | PD.TTN ---
Patient Problems 1. Discharge planning 2. Medication compliance 3. Knowledge deficit 4. Lack of coping skills Progress Toward Goals Provider Present: Dr. Angelika Ortiz Provider Input: Pt remains psychotic, paranoid and medication regiment will continue to be evaluated as well as adjusted as needed. 09/17- Pt remains unmedicated as there is no GA or HCS at this time and he remains largely psychotic. Nurse(s) Present: Sera Cooley, RN Nurse(s) Input: Pt appears psychotic with minimal verbal communication. He has been no behavioral issue on unit. Psychiatric Counselors Present: MIGUEL ANGEL Mars Psych Therapist Input: Pt appears withdrawn, seclusive, psychotic, cooperative and appropriate. He continues to appear to be responding to internal stimuli. Pt presents with limited coping and emotional regulation skills. Pt has not been on medication to this point as team is awaiting HCS to provide consent for medication as he will not consent. 09/17- Pt continues to appear psychotic, withdrawn, seclusive, guarded and uncooperative. Pt is not currently on any medication as he has no one to serve as a HCS. Pt remains withdrawn and poorly engaged in treatment on unit. He appears quite psychotic and with poor insight into condition and need for care. He appears to be utilizing some level of coping skills as there has been no outbursts on unit. Group Spec/RT/OT/RUBIN Present: AUTUMN Hernandez, SCOTTIE Durham Group Spec/RT/OT/RUBIN Input: Pt does not attend groups. 09/17- Pt is exit seeking at times and has not been attending groups. Discharge Plan SMA Pt will likely need placement after discharge as he is currently homeless and will be referred to [facility] as he begins to stabilize further. Documentation Scribe: MIGUEL ANGEL Mars Jonathan LMHC Sep 17, 2017 13:01
--- NOTE | 2017-09-18 11:07 | HHI.PYPN ---
Subjective Chief Complaint: Psychosis Remarks Patient seen and examined with nurse. Chart reviewed. Case discussed with nursing staff. No issues overnight. Continues to refuse vitals. Patient remains internally stimulated and paranoid. No physical complaints. Review of Systems ROS Limitations: Psychotic, Poor Historian Except as stated in HPI: all other systems reviewed are Neg Mental Status Examination Appearance: Disheveled Consciousness: Alert Orientation: Person (at least) Motor Activity: Other (no abnormal motor movements noted) Speech: Other (again continues to mutter to himself) Language: Adequate Fund of Knowledge: Adequate Attention and Concentration: Easily Distracted Mood: Other (calm) Affect: Flat Thought Process & Associations: Other (limited sample) Thought Content: Hallucinations, Delusional Hallucination Type: Auditory (remains internally preoccupied) Delusion Type: Paranoid Suicidal Ideation: No (no SI voiced) Homicidal Ideation: No (no HI voiced) Insight: Poor Judgment: Poor Results Labs Labs reviewed. No new labs. Vitals/IOs Patient continues to refuse vitals. I have asked the nursing staff make a concerted effort to get patient to comply. Assessment & Plan Problem List: (1) Schizophrenia, undifferentiated, acute episode ICD Codes: F20.3 - Undifferentiated schizophrenia Assessment & Plan Await [facility] tomorrow at which point the patient will hopefully be appointed a guardian advocate so that we may initiate psychotropic medication management. Continue to monitor on the inpatient unit in the meantime. Continue other medications and care as ordered. Justification for Cont. Inpt. Impairment in reality construction. High risk for decompensation in less restrictive environment. Discharge Planning Pending [facility] tomorrow. Request HC Surrog/Guard Advoc?: Yes Neal Ortiz MD Sep 18, 2017 11:07
--- NOTE | 2017-09-19 12:24 | HHI.PYPN ---
Subjective Chief Complaint: Psychosis Remarks Patient seen and case discussed with nursing staff. Chart reviewed. Case discussed with nursing staff who reports that patient remains very psychotic. Nursing tried to obtain vitals yesterday but patient became agitated and flailed his arms and could not tolerate having vitals obtained. For me today, patient remains paranoid and internally preoccupied. He is pacing the unit. No evident physical distress. Review of Systems ROS Limitations: Psychotic, Poor Historian Other Limited ROS Mental Status Examination Appearance: Disheveled Consciousness: Alert Orientation: Person (at least) Motor Activity: Other (No motor abnormalities) Speech: Unremarkable Attention and Concentration: Easily Distracted Mood: Other (calm) Affect: Flat Thought Process & Associations: Other (preoccupied) Thought Content: Hallucinations, Delusional Hallucination Type: Auditory (remains internally stimulated) Delusion Type: Paranoid Suicidal Ideation: No (no SI voiced) Homicidal Ideation: No (no HI voiced) Insight: Poor Judgment: Poor Results Labs Labs reviewed. No new labs. Vitals/IOs Patient refusing vitals. Assessment & Plan Problem List: (1) Schizophrenia, undifferentiated, acute episode ICD Codes: F20.3 - Undifferentiated schizophrenia Assessment & Plan Patient's case was presented to [facility], and patient was retained on the unit with a RONAL guardian. We can now begin medication management for patient's psychosis. I think it is likely, at least at first, that patient may refuse oral antipsychotic. I will move the Abilify 15mg to HS and order corresponding dose of Zyprexa IM in case patient refuses oral antipsychotic. Continue to monitor on high acuity unit. Continue other care as ordered. Justification for Cont. Inpt. Impairment in reality construction. Med changes. High risk for decompensation in less restrictive setting. Discharge Planning Pending psychiatric stabilization Request HC Surrog/Guard Advoc?: Yes Neal Ortiz MD Sep 19, 2017 12:24
[2017-09-19] MEDS: ARIPiprazole 15 MG TAB PO SCH (20:30)
[2017-09-19] MEDS: OLANZapine IM 10 MG VIAL IM PRN (20:40)
[2017-09-20 05:57] VITALS: BP 152/81; PULSE 105; RESP 18; TEMP 98.2; O2SAT 97
--- NOTE | 2017-09-20 10:52 | HHI.PYPN ---
Subjective Chief Complaint: Psychosis Remarks Patient seen and examined with counselor and nurse. Chart reviewed. Case discussed in treatment team. Patient refused Abilify PO and so received Zyprexa IM last night. On my examination today, patient remains internally stimulated. He remains paranoid. He is marginally more interactive today, but once again after a brief interchange he gets up from his bed and shows us the door, refusing further interview. No evidence side effects from medications. No physical complaints. Review of Systems ROS Limitations: Uncooperative, Psychotic, Poor Historian Other limited ROS today Mental Status Examination Appearance: Disheveled Consciousness: Alert Orientation: Person Motor Activity: Other (no motoric abnormalities appreciated) Speech: Unremarkable Language: Adequate Fund of Knowledge: Inadequate Attention and Concentration: Easily Distracted Mood: Other (mildly dysphoric) Affect: Flat (remains quite flat) Thought Process & Associations: Other (preoccupied) Thought Content: Hallucinations, Delusional Hallucination Type: Auditory (remains frankly internally stimulated) Delusion Type: Paranoid Suicidal Ideation: No (no SI voiced) Homicidal Ideation: No (no HI voiced) Insight: Poor Judgment: Poor Results Labs Labs reviewed. No new labs. Vitals/IOs Vital Signs Date Time Temp Pulse Resp B/P (MAP) Pulse Ox O2 Delivery O2 Flow Rate FiO2 09/20/17 05:57 98.2 105 18 152/81 (104) 97 I do note that patient allowed staff to check vital signs today. Assessment & Plan Problem List: (1) Schizophrenia, undifferentiated, acute episode ICD Codes: F20.3 - Undifferentiated schizophrenia Assessment & Plan Continue Abilify PO with Zyprexa IM backup. I would like patient to accept an agent with readily available DUFF, but our options are quite limited. Patient has a listed intolerance to Haldol (although this may simply have been EPS based on description). He has a listed allergy to perphenazine and I am worried about possible cross-reactivity among phenothiazines and so am loath to try Prolixin (although this is still an option). He reportedly had hyperprolactinemia with Risperdal, and I would expect the same with Invega. Therefore, excepting a possible Prolixin trial, our remaining readily available DUFF is the Maintena. Continue to monitor on inpatient unit. Continue other meds and care as ordered. Justification for Cont. Inpt. Impairment in reality construction. High risk for decompensation in less restrictive environment. Discharge Planning Pending psychiatric stabilization. Request HC Surrog/Guard Advoc?: Yes Neal Ortiz MD Sep 20, 2017 10:52
--- NOTE | 2017-09-20 14:14 | PD.TTN ---
Patient Problems 1. Discharge planning 2. Medication compliance 3. Knowledge deficit 4. Lack of coping skills Progress Toward Goals Provider Present: Dr. Angelika Ortiz Provider Input: Pt remains psychotic, paranoid and medication regiment will continue to be evaluated as well as adjusted as needed. 09/17- Pt remains unmedicated as there is no GA or HCS at this time and he remains largely psychotic. 09/20- Pt remains psychotic and requiring placement for after discharge. Medication regiment continues to be adjusted including Zyprexa. Nurse(s) Present: Sera Cooley RN Nurse(s) Input: Pt appears psychotic with minimal verbal communication. He has been no behavioral issue on unit. 09/20- Lizeth Felix RN Pt appears paranoid, agitated and has been refusing medications. Psychiatric Counselors Present: Malcolm Paniagua [facility] Psych Therapist Input: Pt appears withdrawn, seclusive, psychotic, cooperative and appropriate. He continues to appear to be responding to internal stimuli. Pt presents with limited coping and emotional regulation skills. Pt has not been on medication to this point as team is awaiting HCS to provide consent for medication as he will not consent. 09/17- Pt continues to appear psychotic, withdrawn, seclusive, guarded and uncooperative. Pt is not currently on any medication as he has no one to serve as a HCS. Pt remains withdrawn and poorly engaged in treatment on unit. He appears quite psychotic and with poor insight into condition and need for care. He appears to be utilizing some level of coping skills as there has been no outbursts on unit. 09/20- Pt has begun to be medicated and was retained by [facility] [address] [facility]. He remains psychotic, withdrawn, easily agitated, uncooperative and guarded. He has limited insight into condition and need for care. Pt presents with limited coping and emotional regulation skills as well. He has been refusing his medication. Group Spec/RT/OT/RUBIN Present: AUTUMN Hernandez, SCOTTIE Durham Group Spec/RT/OT/RUBIN Input: Pt does not attend groups. 09/17- Pt is exit seeking at times and has not been attending groups. 09/20- Pt does not attend groups. He isolates to his room. Discharge Plan SMA Pt will likely need placement after discharge as he is currently homeless and will be referred to [facility] as he begins to stabilize further. Documentation Scribe: Malcolm Paniagua, [facility] Malcolm Paniagua [facility] Sep 20, 2017 14:14
[2017-09-20] MEDS: ARIPiprazole 15 MG TAB PO SCH ×2 (21:00→21:02)
[2017-09-20] MEDS: OLANZapine IM 10 MG VIAL IM PRN (23:50)
--- NOTE | 2017-09-21 16:43 | HHI.PYPN ---
Subjective Chief Complaint: Psychosis Remarks Patient was seen and case discussed with nursing. Patient remains oppositional and irritable refusing the interview. Attempts at redirection were not successful. Patient remains internally preoccupied and insight remains quite poor Mental Status Examination Appearance: Disheveled Consciousness: Alert Orientation: Person Motor Activity: Other (no motoric abnormalities appreciated) Speech: Unremarkable Language: Adequate Fund of Knowledge: Inadequate Attention and Concentration: Easily Distracted Mood: Other (mildly dysphoric) Affect: Blunt Thought Process & Associations: Other (preoccupied) Thought Content: Hallucinations, Delusional Hallucination Type: Auditory (remains frankly internally stimulated) Delusion Type: Paranoid Suicidal Ideation: No (no SI voiced) Homicidal Ideation: No (no HI voiced) Insight: Poor Judgment: Poor Results Vitals/IOs Vital Signs Date Time Temp Pulse Resp B/P (MAP) Pulse Ox O2 Delivery O2 Flow Rate FiO2 09/20/17 05:57 98.2 105 18 152/81 (104) 97 Assessment & Plan Problem List: (1) Schizophrenia, undifferentiated, acute episode ICD Codes: F20.3 - Undifferentiated schizophrenia Assessment & Plan Continue current treatment plan Justification for Cont. Inpt. Patient will decompensate in a less restrictive setting Request HC Surrog/Guard Advoc?: Yes Clarence Guzman DO Sep 21, 2017 16:43
[2017-09-21 17:23] VITALS: PULSE 77; RESP 18; TEMP 98.8; O2SAT 99
[2017-09-21] MEDS: OLANZapine IM 10 MG VIAL IM PRN (20:24)
[2017-09-21] MEDS: ARIPiprazole 15 MG TAB PO SCH (20:24)
--- NOTE | 2017-09-22 13:14 | HHI.PYPN ---
Subjective Chief Complaint: Psychosis Remarks Patient was seen and case discussed with nursing. Patient remains oppositional refusing the interview. He walks down the hallway answered a couple questions. He does not have any complaints today. He denies auditory visual hallucinations. Likely responding to internal stimuli Mental Status Examination Appearance: Disheveled Consciousness: Alert Orientation: Person Motor Activity: Other (no motoric abnormalities appreciated) Speech: Unremarkable Language: Adequate Fund of Knowledge: Inadequate Attention and Concentration: Easily Distracted Mood: Other (mildly dysphoric) Affect: Blunt Thought Process & Associations: Other (preoccupied) Thought Content: Hallucinations, Delusional Hallucination Type: Auditory (remains frankly internally stimulated) Delusion Type: Paranoid Suicidal Ideation: No (no SI voiced) Suicidal Plan: No Suicidal Intention: No Homicidal Ideation: No (no HI voiced) Homicidal Plan: No Homicidal Intention: No Insight: Poor Judgment: Poor Results Vitals/IOs Vital Signs Date Time Temp Pulse Resp B/P (MAP) Pulse Ox O2 Delivery O2 Flow Rate FiO2 09/21/17 17:23 98.8 77 18 99 09/20/17 05:57 152/81 (104) Assessment & Plan Problem List: (1) Schizophrenia, undifferentiated, acute episode ICD Codes: F20.3 - Undifferentiated schizophrenia Assessment & Plan Continue current treatment plan Justification for Cont. Inpt. Patient will decompensate in a less restrictive setting Request HC Surrog/Guard Advoc?: Yes Clarence Guzman DO Sep 22, 2017 13:14
[2017-09-22] MEDS: ARIPiprazole 15 MG TAB PO SCH (21:00)
--- NOTE | 2017-09-23 10:58 | HHI.PYPN ---
Subjective Chief Complaint: Psychosis Remarks Patient seen and examined. Chart reviewed. Continues to refuse oral Abilify. Has been receiving Zyprexa IM. Case discussed with nursing staff who reports that the patient is still resistant to accepting oral medication. On my examination today, the patient remains paranoid. He is internally stimulated still. He is unable to tolerate extended interview and once again excuses me from his room after a short time. No side effects from medications. No physical complaints. Review of Systems ROS Limitations: Psychotic, Poor Historian Except as stated in HPI: all other systems reviewed are Neg Mental Status Examination Appearance: Disheveled Consciousness: Alert Orientation: Person Motor Activity: Other (no abnormal motor movements noted) Speech: Unremarkable Language: Adequate Fund of Knowledge: Inadequate Attention and Concentration: Easily Distracted Mood: Other (remains a little dysphoric) Affect: Blunt Thought Process & Associations: Other (preoccupied) Thought Content: Hallucinations, Delusional Hallucination Type: Auditory (remains internally preoccupied) Delusion Type: Paranoid Suicidal Ideation: No (no SI voiced) Suicidal Plan: No Suicidal Intention: No Homicidal Ideation: No (no HI voiced) Homicidal Plan: No Homicidal Intention: No Insight: Poor Judgment: Poor Results Labs labs reviewed. No new labs. Vitals/IOs Vital Signs Date Time Temp Pulse Resp B/P (MAP) Pulse Ox O2 Delivery O2 Flow Rate FiO2 09/22/17 21:10 09/21/17 17:23 98.8 77 18 99 Assessment & Plan Problem List: (1) Schizophrenia, undifferentiated, acute episode ICD Codes: F20.3 - Undifferentiated schizophrenia Assessment & Plan Patient remains severely decompensated with respect to his psychosis. He continues to refuse oral antipsychotic medications. I will titrate Zyprexa to 5 mg in the morning and 10 mg at bedtime. I will order the morning dose IM as the patient has been consistently refusing oral medications, but we will still offer Abilify PO at HS with Zyprexa IM should patient refuse. Continue to monitor on high acuity unit. Continue other medications and care as ordered. Justification for Cont. Inpt. Impairment in reality construction. Medication changes. High risk for decompensation in less restrictive environment. Discharge Planning Pending psychiatric stabilization. Request HC Surrog/Guard Advoc?: Yes Neal Ortiz MD Sep 23, 2017 10:58
[2017-09-23] MEDS: OLANZapine IM 10 MG VIAL IM SCH (11:56)
[2017-09-23] MEDS: ARIPiprazole 15 MG TAB PO SCH (20:43)
[2017-09-23] MEDS: OLANZapine IM 10 MG VIAL IM PRN (21:14)
[2017-09-24] MEDS: OLANZapine IM 10 MG VIAL IM SCH (10:05)
--- NOTE | 2017-09-24 12:09 | PD.TTN ---
Patient Problems 1. Discharge planning 2. Medication compliance 3. Knowledge deficit 4. Lack of coping skills Progress Toward Goals Provider Present: Dr. Angelika Ortiz Provider Input: Pt remains psychotic, paranoid and medication regiment will continue to be evaluated as well as adjusted as needed. 09/17- Pt remains unmedicated as there is no GA or HCS at this time and he remains largely psychotic. 09/20- Pt remains psychotic and requiring placement for after discharge. Medication regiment continues to be adjusted including Zyprexa. 09/24- Pt medication regiment remains under evaluation and is being adjusted including titration of Zyprexa Nurse(s) Present: Sera Cooley RN Nurse(s) Input: Pt appears psychotic with minimal verbal communication. He has been no behavioral issue on unit. 09/20- Lizeth Felix RN Pt appears paranoid, agitated and has been refusing medications. 09/24- Dorys Shepard RN Pt appears anxious, runs away from contact, has been getting his medication through injection and appears withdrawn/psychotic. Psychiatric Counselors Present: MIGUEL ANGEL Mars Psych Therapist Input: Pt appears withdrawn, seclusive, psychotic, cooperative and appropriate. He continues to appear to be responding to internal stimuli. Pt presents with limited coping and emotional regulation skills. Pt has not been on medication to this point as team is awaiting HCS to provide consent for medication as he will not consent. 09/17- Pt continues to appear psychotic, withdrawn, seclusive, guarded and uncooperative. Pt is not currently on any medication as he has no one to serve as a HCS. Pt remains withdrawn and poorly engaged in treatment on unit. He appears quite psychotic and with poor insight into condition and need for care. He appears to be utilizing some level of coping skills as there has been no outbursts on unit. 09/20- Pt has begun to be medicated and was retained by [facility]. He remains psychotic, withdrawn, easily agitated, uncooperative and guarded. He has limited insight into condition and need for care. Pt presents with limited coping and emotional regulation skills as well. He has been refusing his medication. 09/24- Pt continues to appear psychotic, withdrawn, seclusive, paranoid and uncooperative. Pt is poorly engaged in treatment on unit and is often seen pacing while talking to himself. He is somewhat resistant to medication regiment. Pt has poor insight into condition and need for care. He presents with limited coping and emotional regulation skills at this time. Group Spec/RT/OT/RUBIN Present: Harriet Ramires, GPS, [place] Chu, RUBIN Group Spec/RT/OT/RUBIN Input: Pt does not attend groups. 09/17- Pt is exit seeking at times and has not been attending groups. 09/20- Pt does not attend groups. He isolates to his room. 09/24- Pt is paranoid, isolates to room and does not attend groups. Discharge Plan SMA Pt will likely need placement after discharge as he is currently homeless and will be referred to ALFs as he begins to stabilize further. Documentation Scribe: Malcolm Paniagua Malcolm Pedraza [facility] Sep 24, 2017 12:09
--- NOTE | 2017-09-24 13:10 | HHI.PYPN ---
Subjective Chief Complaint: Psychosis Remarks Patient seen and examined with nurse. Chart reviewed. Patient continues to refuse oral antipsychotic. Case discussed in treatment team with occupational therapist and counselor. Case discussed with nursing staff. Per nursing, patient remains extremely resistant to psychotropic medications. Considerable effort had to be expended to administer Zyprexa IM this morning as patient was resisting. On my evaluation today, the patient remains markedly paranoid and internally stimulated. When I try to enter his room to examine him, he arises swiftly from bed and pulls the door shut before I can enter saying only "no thank you." He subsequently pokes his head out of his room, only to pull it back in when he catches our eye. He also goes back to his room, leaving his lunch largely uneaten today when nurse and I make our way through the day area. No evident side effects from medications. No physical complaints. Review of Systems ROS Limitations: Uncooperative, Psychotic, Poor Historian Other Limited ROS because of above. Mental Status Examination Appearance: Disheveled Consciousness: Alert Orientation: Person Motor Activity: Other (No motoric abnormalities appreciated.) Speech: Unremarkable Language: Adequate Fund of Knowledge: Inadequate Attention and Concentration: Easily Distracted Mood: Other (dysphoric) Affect: Blunt Thought Process & Associations: Other (remains preoccupied) Thought Content: Hallucinations, Delusional Hallucination Type: Auditory (remains internally stimulated) Delusion Type: Paranoid Suicidal Ideation: No (no SI voiced) Suicidal Plan: No Suicidal Intention: No Homicidal Ideation: No (no HI voiced) Homicidal Plan: No Homicidal Intention: No Insight: Poor Judgment: Poor Results Labs Labs reviewed. No new labs. Vitals/IOs Vital Signs Date Time Temp Pulse Resp B/P (MAP) Pulse Ox O2 Delivery O2 Flow Rate FiO2 09/22/17 21:10 09/21/17 17:23 98.8 77 18 99 Intake and Output 09/24/17 09/24/17 09/25/17 08:00 16:00 00:00 Intake Total 600 ml Balance 600 ml Assessment & Plan Problem List: (1) Schizophrenia, undifferentiated, acute episode ICD Codes: F20.3 - Undifferentiated schizophrenia Assessment & Plan Patient remains severely decompensated with respect to psychosis. He continues to refuse oral antipsychotic therapy. Titrate Zyprexa IM to 10 mg twice daily to target psychosis. Continue to offer Abilify in place of one of the Zyprexa doses. Charge nurse informed me that the patient may have struck his right elbow while staff was endeavoring to medicate him this morning, and so I will check an x-ray of the right elbow. Continue to monitor on the high acuity unit. Continue other medications and care as ordered. Justification for Cont. Inpt. Impairment in reality construction. Medication changes. High risk for decompensation in less restrictive environment. Discharge Planning Pending psychiatric stabilization. Request HC Surrog/Guard Advoc?: Yes Neal Ortiz MD Sep 24, 2017 13:10
[2017-09-24] MEDS: ARIPiprazole 15 MG TAB PO SCH (20:54)
[2017-09-24] MEDS: OLANZapine IM 10 MG VIAL IM PRN (20:55)
[2017-09-25] MEDS ORDERED: OLANZapine IM 10 MG VIAL IM SCH (09:00)
--- NOTE | 2017-09-25 10:43 | HHI.PYPN ---
Subjective Chief Complaint: Psychosis Remarks Patient seen and examined with nurse. Chart reviewed. Case discussed with nursing staff. Patient remains resistive to accepting antipsychotic medications and continues to refuse oral antipsychotic. Nurse expresses concern that the patient may not be eating because he is so upset that he is receiving medication, although review of nutritional intake suggests that the patient took every meal but dinner yesterday and ate breakfast this morning. On my examination today, the patient initially refuses interview. However, he does not close the door on us as he did yesterday. He says "I'm all right" although he remains obviously internally stimulated and is muttering to himself. Thought blocking is present. He remains somewhat disheveled. No side effects from medications. No physical complaints. Review of Systems ROS Limitations: Psychotic, Poor Historian Except as stated in HPI: all other systems reviewed are Neg Mental Status Examination Appearance: Disheveled Consciousness: Alert Orientation: Person (at least) Motor Activity: Other (no abnormal motor movements noted) Speech: Unremarkable Language: Adequate Fund of Knowledge: Inadequate Attention and Concentration: Easily Distracted Mood: Other (remains dysphoric) Affect: Blunt (tending towards flat) Thought Process & Associations: Goal directed Thought Content: Hallucinations, Thought blocking, Delusional Hallucination Type: Auditory (internally preoccupied) Delusion Type: Paranoid Suicidal Ideation: No Homicidal Ideation: No Insight: Poor Judgment: Poor Results Labs Labs reviewed. No new labs. Patient refused elbow x-ray. Vitals/IOs Patient continues to refuse vital signs Assessment & Plan Problem List: (1) Schizophrenia, undifferentiated, acute episode ICD Codes: F20.3 - Undifferentiated schizophrenia Assessment & Plan First increased dose of Zyprexa this morning. Patient is now receiving Zyprexa 10 mg twice a day IM. He does have the Abilify ordered in place of one of these doses as an oral alternative, but he is consistently refusing this. Since it does not seem likely that patient will accept oral meds in the near future, I will go ahead and replace this Abilify with Zyprexa Zydis to keep the agent consistent. Monitor oral intake, although it does not appear that the patient has been refusing meals on a consistent basis as I said. Continue to monitor on high daily unit. Continue other medications and care as ordered. Justification for Cont. Inpt. Impairment in reality construction. Med changes. High risk for decompensation in less restrictive environment Discharge Planning Pending psychiatric stabilization. Goal is placement. Case discussed with counselor. Request HC Surrog/Guard Advoc?: Yes Neal Ortiz MD Sep 25, 2017 10:43
[2017-09-25] MEDS: OLANZapine IM 10 MG VIAL IM PRN (20:55)
[2017-09-25] MEDS: OLANZapine ODT 10 MG TAB PO SCH (20:55)
[2017-09-26] MEDS: OLANZapine ODT 10 MG TAB PO SCH ×3 (09:00→20:42)
[2017-09-26] MEDS: OLANZapine IM 10 MG VIAL IM PRN ×3 (09:33→20:42)
--- NOTE | 2017-09-26 11:35 | HHI.PYPN ---
Subjective Chief Complaint: Psychosis Remarks Patient seen and examined. Chart reviewed. Patient did not refuse any meals yesterday. Case discussed with nursing: patient continues to refuse oral psychotropics. He is refusing vitals. On my exam, patient remains paranoid and internally preoccupied. "Leave me alone! I just got a shot. Leave me alone!" Refuses extended interview. No evident side effects from medications. No physical complaints. Review of Systems ROS Limitations: Psychotic, Poor Historian Except as stated in HPI: all other systems reviewed are Neg Mental Status Examination Appearance: Disheveled Consciousness: Alert Orientation: Person (at least) Motor Activity: Other (no abnormal motor movements noted) Speech: Unremarkable Language: Adequate Attention and Concentration: Easily Distracted Mood: Other (Dysphoric) Affect: Flat Thought Process & Associations: Goal directed Thought Content: Hallucinations, Thought blocking, Delusional Hallucination Type: Auditory (Remains frankly internally stimualted) Delusion Type: Paranoid Suicidal Ideation: No Homicidal Ideation: No Insight: Poor Judgment: Poor Results Labs Labs reviewed. No new labs. Vitals/IOs Vital Signs Date Time Temp Pulse Resp B/P (MAP) Pulse Ox O2 Delivery O2 Flow Rate FiO2 09/22/17 21:10 Assessment & Plan Problem List: (1) Schizophrenia, undifferentiated, acute episode ICD Codes: F20.3 - Undifferentiated schizophrenia Assessment & Plan Titrate Zyprexa to 10mg TID PO/IM to target ongoing psychosis. If this fails to produce robust improvement in psychosis within a day or two, I think we should seriously consider replacing the Zyprexa with an alternative antipsychotic. Continue to monitor on the high acuity unit. Continue other medications and care as ordered. Justification for Cont. Inpt. Medication changes. High risk for decompensation in less restrictive environment. Discharge Planning New placement following psychiatric stabilization. Request HC Surrog/Guard Advoc?: Yes Neal Ortiz MD Sep 26, 2017 11:35
[2017-09-27] MEDS: OLANZapine ODT 10 MG TAB PO SCH ×3 (08:39→21:00)
--- NOTE | 2017-09-27 09:59 | HHI.PYPN ---
Subjective Chief Complaint: Psychosis Remarks Patient seen and examined with nurse. Chart reviewed. Case discussed with nursing staff and in treatment team. I do note that patient has accepted last 2 doses of Zyprexa PO. He is eating well but is taking meals in his room because he remains extremely paranoid. On my exam, patient is able to tolerate only a brief interview, perhaps a little longer than yesterday. He is marginally more interactive. He remains fearful, paranoid and internally stimulated. He denies side effects from medications but will not let me examine him for EPS. No physical complaints. Review of Systems ROS Limitations: Psychotic, Poor Historian Except as stated in HPI: all other systems reviewed are Neg Mental Status Examination Appearance: Disheveled Consciousness: Alert Orientation: Person (again, at least) Motor Activity: Other (No motoric abnormalities appreciated) Speech: Unremarkable Language: Adequate Attention and Concentration: Easily Distracted Mood: Other (remains dysphoric and fearful) Affect: Blunt Thought Process & Associations: Other (Remains goal directed.) Thought Content: Hallucinations, Thought blocking, Delusional Hallucination Type: Auditory (Internally stimulated) Delusion Type: Paranoid Suicidal Ideation: No Homicidal Ideation: No Insight: Poor Judgment: Poor Results Labs Labs reviewed. No new labs. Vitals/IOs Refusing vitals. Assessment & Plan Problem List: (1) Schizophrenia, undifferentiated, acute episode ICD Codes: F20.3 - Undifferentiated schizophrenia Assessment & Plan Perhaps some subtle improvement with Zyprexa at robust dose. He is accepting PO Zyprexa, at least for now, and is somewhat better able to tolerate interview. I will continue Zyprexa as ordered. Mouth checks. Continue other medications and care as ordered. Justification for Cont. Inpt. Impairment in reality construction. High risk for decompensation in less restrictive environment. Discharge Planning Placement once psychiatrically stabilized. I will go ahead and initiate a state hospital referral in case we are unable to find placement for this patient. Request HC Surrog/Guard Advoc?: Yes Neal Ortiz MD Sep 27, 2017 09:59
--- NOTE | 2017-09-27 14:15 | PD.TTN ---
Patient Problems 1. Discharge planning 2. Medication compliance 3. Knowledge deficit 4. Lack of coping skills Progress Toward Goals Provider Present: Dr. Angelika Ortiz Provider Input: Pt remains psychotic, paranoid and medication regiment will continue to be evaluated as well as adjusted as needed. 09/17- Pt remains unmedicated as there is no GA or HCS at this time and he remains largely psychotic. 09/20- Pt remains psychotic and requiring placement for after discharge. Medication regiment continues to be adjusted including Zyprexa. 09/24- Pt medication regiment remains under evaluation and is being adjusted including titration of Zyprexa 09/27- Pt has been taking his medication through IM as he is refusing oral medication. He will be considered for a new antipsychotic. Nurse(s) Present: Sera Cooley RN Nurse(s) Input: Pt appears psychotic with minimal verbal communication. He has been no behavioral issue on unit. 09/20- Lizeth Felix RN Pt appears paranoid, agitated and has been refusing medications. 09/24- Dorys Shepard RN Pt appears anxious, runs away from contact, has been getting his medication through injection and appears withdrawn/psychotic. 09/27- Sylvia Luo RN Pt took medication orally for the first time today but remains largely uncooperative, guarded and with no consistency in behavior. Psychiatric Counselors Present: Malcolm Paniagua [facility] Psych Therapist Input: Pt appears withdrawn, seclusive, psychotic, cooperative and appropriate. He continues to appear to be responding to internal stimuli. Pt presents with limited coping and emotional regulation skills. Pt has not been on medication to this point as team is awaiting HCS to provide consent for medication as he will not consent. 09/17- Pt continues to appear psychotic, withdrawn, seclusive, guarded and uncooperative. Pt is not currently on any medication as he has no one to serve as a HCS. Pt remains withdrawn and poorly engaged in treatment on unit. He appears quite psychotic and with poor insight into condition and need for care. He appears to be utilizing some level of coping skills as there has been no outbursts on unit. 09/20- Pt has begun to be medicated and was retained by [facility] [address]. He remains psychotic, withdrawn, easily agitated, uncooperative and guarded. He has limited insight into condition and need for care. Pt presents with limited coping and emotional regulation skills as well. He has been refusing his medication. 09/24- Pt continues to appear psychotic, withdrawn, seclusive, paranoid and uncooperative. Pt is poorly engaged in treatment on unit and is often seen pacing while talking to himself. He is somewhat resistant to medication regiment. Pt has poor insight into condition and need for care. He presents with limited coping and emotional regulation skills at this time. 09/27- Pt remains psychotic, delusional, withdrawn, uncooperative and easily agitated. He remains withdrawn to self and room. Pt is not compliant with medication regiment and must be given his medication through IM. He has poor insight into condition and need for care. Pt appears to be utilizing some level of coping and emotional regulation skills as he has had no outbursts. Group Spec/RT/OT/RUBIN Present: Harriet Ramires, [employer], SCOTTIE Durham Group Spec/RT/OT/RUBIN Input: Pt does not attend groups. 09/17- Pt is exit seeking at times and has not been attending groups. 09/20- Pt does not attend groups. He isolates to his room. 09/24- Pt is paranoid, isolates to room and does not attend groups. 09/27- SCOTTIE Durham Pt isolates to room and does not attend groups. Discharge Plan SMA Pt will likely need placement after discharge as he is currently homeless and will be referred to ALFs as he begins to stabilize further. Documentation Scribe: Malcolm Paniagau Malcolm Pedraza Sep 27, 2017 14:15
[2017-09-28] MEDS: OLANZapine ODT 10 MG TAB PO SCH ×3 (09:47→20:49)
--- NOTE | 2017-09-28 15:18 | HHI.PYPN ---
Subjective Chief Complaint: Psychosis Remarks Patient was seen and case discussed with nursing. Patient continues to be oppositional, refusing the interview today. He says he just wants to be left alone. He is compliant with his by mouth Zyprexa. Behaving well on the unit Mental Status Examination Appearance: Disheveled Consciousness: Alert Orientation: Person (again, at least) Motor Activity: Other (No motoric abnormalities appreciated) Speech: Unremarkable Language: Adequate Attention and Concentration: Easily Distracted Mood: Other (remains dysphoric and fearful) Affect: Blunt Thought Process & Associations: Other (Remains goal directed.) Thought Content: Hallucinations, Thought blocking, Delusional Hallucination Type: Auditory (Internally stimulated) Delusion Type: Paranoid Suicidal Ideation: No Homicidal Ideation: No Insight: Poor Judgment: Poor Assessment & Plan Problem List: (1) Schizophrenia, undifferentiated, acute episode ICD Codes: F20.3 - Undifferentiated schizophrenia Assessment & Plan Continue current treatment plan Justification for Cont. Inpt. Patient would decompensate in a less restrictive setting Request HC Surrog/Guard Advoc?: Yes Clarence Guzman DO Sep 28, 2017 15:18
[2017-09-29] MEDS: OLANZapine ODT 10 MG TAB PO SCH ×3 (09:37→21:39)
--- NOTE | 2017-09-29 13:12 | HHI.PYPN ---
Subjective Chief Complaint: Psychosis Remarks Patient was seen and case discussed with nursing. Patient remains oppositional , refusing the interview shutting the door as quickly as be open and. Remains internally preoccupied. No outbursts. Compliant with medications Mental Status Examination Appearance: Disheveled Consciousness: Alert Orientation: Person (again, at least) Motor Activity: Other (No motoric abnormalities appreciated) Speech: Unremarkable Language: Adequate Attention and Concentration: Easily Distracted Mood: Other (remains dysphoric and fearful) Affect: Blunt Thought Process & Associations: Other (Remains goal directed.) Thought Content: Hallucinations, Thought blocking, Delusional Hallucination Type: Auditory (Internally stimulated) Delusion Type: Paranoid Suicidal Ideation: No Homicidal Ideation: No Insight: Poor Judgment: Poor Assessment & Plan Problem List: (1) Schizophrenia, undifferentiated, acute episode ICD Codes: F20.3 - Undifferentiated schizophrenia Assessment & Plan Continue current treatment plan Justification for Cont. Inpt. Patient would decompensate in a less restrictive setting Request HC Surrog/Guard Advoc?: Yes Clarence Guzman DO Sep 29, 2017 13:12
[2017-09-30] MEDS: OLANZapine ODT 10 MG TAB PO SCH ×3 (09:00→20:57)
--- NOTE | 2017-09-30 10:19 | HHI.PYPN ---
Subjective Chief Complaint: Psychosis Remarks patient seen and examined with nurse. Chart reviewed. Patient is accepting oral psychotropics now fairly consistently. Case discussed with nursing staff who reports the patient is seclusive to room. He is eating well. On my examination today, the patient remains paranoid and internally stimulated. He cannot tolerate extended interview. When we endeavor to enter his room to speak with him he says "can you back up for me?" In response to all questioning he insists "I'm fine." No SI or HI voiced. No evidence side effects from medications. No physical complaints. Review of Systems ROS Limitations: Psychotic, Poor Historian Except as stated in HPI: all other systems reviewed are Neg Mental Status Examination Appearance: Disheveled Consciousness: Alert, Vigilant Orientation: Person Motor Activity: Other (no abnormal motor movements noted) Speech: Unremarkable Language: Adequate Attention and Concentration: Easily Distracted Mood: Other (mildly dysphoric) Affect: Blunt (tending towards flat) Thought Process & Associations: Linear Thought Content: Hallucinations, Thought blocking, Delusional Hallucination Type: Auditory (remains internally stimulated) Delusion Type: Paranoid Suicidal Ideation: No Homicidal Ideation: No Insight: Poor Judgment: Poor Results Labs labs reviewed. No new labs. Vitals/IOs Patient continues to refuse vital signs Assessment & Plan Problem List: (1) Schizophrenia, undifferentiated, acute episode ICD Codes: F20.3 - Undifferentiated schizophrenia Assessment & Plan Patient remains quite psychotic. He is accepting oral psychotropics. I do not think that there is much benefit to be gained from further titration of his Zyprexa. I will augment with Abilify with plans either to cross-taper or to continue with antipsychotic polypharmacy in light of his ongoing psychotic symptoms. Continue to monitor on the high acuity unit. Continue other medications and care as ordered. Justification for Cont. Inpt. Impairment in reality construction. Medication changes. High risk for decompensation in less restrictive environment. Discharge Planning Placement following psychiatric stabilization Request HC Surrog/Guard Advoc?: Yes Neal Ortiz MD Sep 30, 2017 10:19
[2017-09-30] MEDS: ARIPiprazole 5 MG TAB PO SCH (10:30)
[2017-10-01] MEDS: ARIPiprazole 5 MG TAB PO SCH (09:00)
[2017-10-01] MEDS: OLANZapine ODT 10 MG TAB PO SCH ×3 (09:00→20:14)
--- NOTE | 2017-10-01 11:23 | HHI.PYPN ---
Subjective Chief Complaint: Psychosis Remarks Patient seen and examined with nurse. Chart reviewed. Case discussed in treatment team with counselor and occupational therapist. Case discussed with nursing staff. Patient remains quite paranoid and is taking meals but doing little else on the unit. He remained secluded in his room. He is resistant to efforts to interview him saying "no, thank you. I took my pills." No SI or HI voiced. No evidence side effects from medications. No physical complaints. Review of Systems ROS Limitations: Psychotic, Poor Historian Except as stated in HPI: all other systems reviewed are Neg Mental Status Examination Appearance: Disheveled Consciousness: Alert, Vigilant Orientation: Person Motor Activity: Other (no motoric abnormalities appreciated) Speech: Unremarkable Language: Adequate Attention and Concentration: Easily Distracted Mood: Other (dysphoric) Affect: Flat Thought Process & Associations: Linear Thought Content: Hallucinations, Thought blocking, Delusional Hallucination Type: Auditory (internally preoccupied) Delusion Type: Paranoid Suicidal Ideation: No (no SI voiced) Homicidal Ideation: No (no HI voiced) Insight: Poor Judgment: Poor Results Labs Labs reviewed. No new labs. Vitals/IOs Patient is refusing vitals Assessment & Plan Problem List: (1) Schizophrenia, undifferentiated, acute episode ICD Codes: F20.3 - Undifferentiated schizophrenia Assessment & Plan Patient remains severely decompensated with respect to psychotic illness. I will titrate Abilify to 10 mg daily with plans for further titration to effect. I will continue Zyprexa as ordered. To consider long-acting injectable. Check an updated set of basic laboratories. Continue to monitor on the inpatient unit. Continue other medications and care as ordered. Justification for Cont. Inpt. Medication changes. Impairment in reality construction. High risk for decompensation in less restrictive environment. Discharge Planning Placement following psychiatric stabilization. Case discussed with counselor. Request HC Surrog/Guard Advoc?: Yes Neal Ortiz MD Oct 01, 2017 11:23
--- NOTE | 2017-10-01 13:02 | PD.TTN ---
Patient Problems 1. Discharge planning 2. Medication compliance 3. Knowledge deficit 4. Lack of coping skills Progress Toward Goals Provider Present: Dr. Angelika Ortiz Provider Input: Pt remains psychotic, paranoid and medication regiment will continue to be evaluated as well as adjusted as needed. 09/17- Pt remains unmedicated as there is no GA or HCS at this time and he remains largely psychotic. 09/20- Pt remains psychotic and requiring placement for after discharge. Medication regiment continues to be adjusted including Zyprexa. 09/24- Pt medication regiment remains under evaluation and is being adjusted including titration of Zyprexa 09/27- Pt has been taking his medication through IM as he is refusing oral medication. He will be considered for a new antipsychotic. 10/01- Pt remains psychotic and withdrawn. His medication regiment will be adjusted including increase of Zyprexa and addition of Abilify. He will be referred to [facility] due to poor response to treatment at this time. Nurse(s) Present: Sera Cooley RN Nurse(s) Input: Pt appears psychotic with minimal verbal communication. He has been no behavioral issue on unit. 09/20- Lizeth Felix RN Pt appears paranoid, agitated and has been refusing medications. 09/24- Dorys Shepard RN Pt appears anxious, runs away from contact, has been getting his medication through injection and appears withdrawn/psychotic. 09/27- Sylvia Luo RN Pt took medication orally for the first time today but remains largely uncooperative, guarded and with no consistency in behavior. 10/01- Daisy John RN Pt appears paranoid, agitated, aggressive, threatening and with increasing medication compliance. Psychiatric Counselors Present: Malcolm Paniagua [facility] Psych Therapist Input: Pt appears withdrawn, seclusive, psychotic, cooperative and appropriate. He continues to appear to be responding to internal stimuli. Pt presents with limited coping and emotional regulation skills. Pt has not been on medication to this point as team is awaiting HCS to provide consent for medication as he will not consent. 09/17- Pt continues to appear psychotic, withdrawn, seclusive, guarded and uncooperative. Pt is not currently on any medication as he has no one to serve as a HCS. Pt remains withdrawn and poorly engaged in treatment on unit. He appears quite psychotic and with poor insight into condition and need for care. He appears to be utilizing some level of coping skills as there has been no outbursts on unit. 09/20- Pt has begun to be medicated and was retained by [facility]. He remains psychotic, withdrawn, easily agitated, uncooperative and guarded. He has limited insight into condition and need for care. Pt presents with limited coping and emotional regulation skills as well. He has been refusing his medication. 09/24- Pt continues to appear psychotic, withdrawn, seclusive, paranoid and uncooperative. Pt is poorly engaged in treatment on unit and is often seen pacing while talking to himself. He is somewhat resistant to medication regiment. Pt has poor insight into condition and need for care. He presents with limited coping and emotional regulation skills at this time. 09/27- Pt remains psychotic, delusional, withdrawn, uncooperative and easily agitated. He remains withdrawn to self and room. Pt is not compliant with medication regiment and must be given his medication through IM. He has poor insight into condition and need for care. Pt appears to be utilizing some level of coping and emotional regulation skills as he has had no outbursts. 10/01- Pt remains psychotic, delusional, withdrawn, isolated and threatening at times. He will not engage on unit and communicates only minimally. He is increasing his compliance with oral medications. Pt has limited insight into condition and need for care. He has limited coping and emotional regulation skills at this time as well. He will be referred for [facility]. Group Spec/RT/OT/RUBIN Present: Harriet Ramires, AUTUMN, SCOTTIE Gillette Adam Lampert, COTA Group Spec/RT/OT/RUBIN Input: Pt does not attend groups. 09/17- Pt is exit seeking at times and has not been attending groups. 09/20- Pt does not attend groups. He isolates to his room. 09/24- Pt is paranoid, isolates to room and does not attend groups. 09/27- SCOTTIE Durham Pt isolates to room and does not attend groups. 10/01- SCOTTIE Gillette Pt does not attend groups. Discharge Plan SMA Pt will likely need placement after discharge as he is currently homeless and will be referred to [facility] as he has been responding poorly to treatment. He will be referred to [facility] if condition improves and this is appropriate. Documentation Scribe: Malcolm Paniagua [facility] Malcolm Paniagua [facility] Oct 01, 2017 13:02
[2017-10-01 15:21] LABS: AUTOMATED NEUTROPHIL # 4.1 TH/MM3 (1.8-7.7); BASOPHIL # 0.1 TH/MM3 (0-0.2); BASOPHIL % 0.8 % (0.0-2.0); EOSINOPHIL # 0.2 TH/MM3 (0-0.4); EOSINOPHIL % 2.6 % (0.0-4.0); HEMATOCRIT 42.5 % (39.0-51.0); HEMOGLOBIN 14.6 GM/DL (13.0-17.0); LYMPH % 35.9 % (9.0-44.0); LYMPHOCYTE # 2.8 TH/MM3 (1.0-4.8); MEAN CELL VOLUME 91.6 FL (80.0-100.0); MEAN CORPUSCULAR HEMOGLOBIN 31.4 PG (27.0-34.0); MEAN CORPUSCULAR HGB CONC 34.3 % (32.0-36.0); MEAN PLATELET VOLUME 7.7 FL (7.0-11.0); MONO % 7.7 % (0.0-8.0); MONOCYTE # 0.6 TH/MM3 (0-0.9); PLATELET COUNT 345 TH/MM3 (150-450); RED BLOOD COUNT 4.64 MIL/MM3 (4.50-5.90); WHITE BLOOD COUNT 7.7 TH/MM3 (4.0-11.0)
[2017-10-01 15:59] LABS: ALBUMIN 3.5 GM/DL (3.4-5.0); ALT (GPT) 14 U/L (12-78); AST (GOT) 12 U/L (15-37); BICARBONATE 27.9 MEQ/L (21.0-32.0); BLOOD UREA NITROGEN 11 MG/DL (7-18); CALCIUM 9.1 MG/DL (8.5-10.1); CHLORIDE 108 MEQ/L (98-107); CREATININE 0.96 MG/DL (0.60-1.30); GLOMERULAR FILTRATION RATE 81 ML/MIN (>89); GLUCOSE,RANDOM 92 MG/DL (74-106); SODIUM (NA) 143 MEQ/L (136-145)
[2017-10-01 16:01] LABS: ALKALINE PHOSPHATASE 213 U/L (45-117); TOTAL BILIRUBIN ADULT 0.2 MG/DL (0.2-1.0)
[2017-10-02] MEDS ORDERED: ARIPiprazole 5 MG TAB PO SCH (09:00)
[2017-10-02] MEDS: OLANZapine ODT 10 MG TAB PO SCH ×3 (09:00→20:31)
--- NOTE | 2017-10-02 12:22 | HHI.PYPN ---
Subjective Chief Complaint: Psychosis Remarks Patient seen and examined with nurse. Chart reviewed. Case discussed with nursing staff reports that the patient has been seclusive to room and refusing vitals. On my examination today, the patient remains paranoid and internally preoccupied. He is able to tolerate only a marginally longer interview today. He denies any physical complaints. He denies side effects from medications. He is coming out for meals. Review of Systems ROS Limitations: Psychotic, Poor Historian Except as stated in HPI: all other systems reviewed are Neg Mental Status Examination Appearance: Disheveled Consciousness: Alert, Vigilant Orientation: Person Motor Activity: Other (no abnormal motor movements noted) Speech: Unremarkable Language: Adequate Fund of Knowledge: Inadequate Attention and Concentration: Easily Distracted Mood: Other (dysphoric) Affect: Flat Thought Process & Associations: Linear Thought Content: Hallucinations, Thought blocking, Delusional Hallucination Type: Other (remains internally stimulated) Delusion Type: Paranoid Suicidal Ideation: No Homicidal Ideation: No Insight: Poor Judgment: Poor Results Labs Test 10/01/17 14:57 White Blood Count 7.7 TH/MM3 Red Blood Count 4.64 MIL/MM3 Hemoglobin 14.6 GM/DL Hematocrit 42.5 % Mean Corpuscular Volume 91.6 FL Mean Corpuscular Hemoglobin 31.4 PG Mean Corpuscular Hemoglobin Concent 34.3 % Red Cell Distribution Width 13.0 % Platelet Count 345 TH/MM3 Mean Platelet Volume 7.7 FL Neutrophils (%) (Auto) 53.0 % Lymphocytes (%) (Auto) 35.9 % Monocytes (%) (Auto) 7.7 % Eosinophils (%) (Auto) 2.6 % Basophils (%) (Auto) 0.8 % Neutrophils # (Auto) 4.1 TH/MM3 Lymphocytes # (Auto) 2.8 TH/MM3 Monocytes # (Auto) 0.6 TH/MM3 Eosinophils # (Auto) 0.2 TH/MM3 Basophils # (Auto) 0.1 TH/MM3 CBC Comment DIFF FINAL Differential Comment Blood Urea Nitrogen 11 MG/DL Creatinine 0.96 MG/DL Random Glucose 92 MG/DL Total Protein 7.0 GM/DL Albumin 3.5 GM/DL Calcium Level 9.1 MG/DL Alkaline Phosphatase 213 U/L Aspartate Amino Transf (AST/SGOT) 12 U/L Alanine Aminotransferase (ALT/SGPT) 14 U/L Total Bilirubin 0.2 MG/DL Sodium Level 143 MEQ/L Potassium Level 4.8 MEQ/L Chloride Level 108 MEQ/L Carbon Dioxide Level 27.9 MEQ/L Anion Gap 7 MEQ/L Estimat Glomerular Filtration Rate 81 ML/MIN Prolactin 15.4 ng/mL Labs reviewed. CBC unremarkable. CMP unremarkable except for mildly decreased GFR and elevated alkaline phosphatase. Prolactin level just slightly elevated above the upper limit of normal. Vitals/IOs refusing vital signs Assessment & Plan Problem List: (1) Schizophrenia, undifferentiated, acute episode ICD Codes: F20.3 - Undifferentiated schizophrenia Assessment & Plan Patient remains severely decompensated with respect to his psychotic illness. Titrate Abilify to 15 mg daily to target psychosis. Continue Zyprexa as ordered. Prolactin level is not significantly elevated with current antipsychotic treatment. However, if we do not begin to see some genuine improvement in patient's clinical condition soon, we may need to consider either returning to Risperdal as this was efficacious for patient's psychosis even if it caused hyperprolactinemia, or else consider another agent with available long-acting injectable, although the options outside of Risperdal and derivatives are essentially Prolixin, and there is the concern about cross- reactivity with agents to which he has a listed allergy. Recheck LFTs Saturday. Continue to monitor on high acuity unit. Continue other medications and care as ordered. Justification for Cont. Inpt. Medication changes. Impairment in reality construction. High risk for decompensation in less restrictive environment. Discharge Planning Placement following psychiatric stabilization. Request HC Surrog/Guard Advoc?: Yes Neal Ortiz MD Oct 02, 2017 12:21
[2017-10-03] MEDS ORDERED: ARIPiprazole 5 MG TAB PO SCH (09:00)
--- NOTE | 2017-10-03 09:18 | HHI.PYPN ---
Subjective Chief Complaint: Psychosis Remarks Patient seen and examined with nurse. Chart reviewed. Case discussed with nursing staff who reports the patient is unchanged and remains psychotic and extremely paranoid. He is coming out for meals. On my examination today, the patient remains internally preoccupied, paranoid and cannot tolerate extended interview. He says that he needs to rest. No evident side effects from medications. The patient reports that he singed his left anterior forearm with coffee this morning, but there is no burn or visible lesion in the area that he demonstrates. No other physical complaints. Review of Systems ROS Limitations: Psychotic, Poor Historian Except as stated in HPI: all other systems reviewed are Neg Mental Status Examination Appearance: Disheveled Consciousness: Alert, Vigilant Orientation: Person Motor Activity: Other (no abnormal motor movements noted) Speech: Unremarkable Language: Adequate Fund of Knowledge: Inadequate Attention and Concentration: Easily Distracted (remains so) Mood: Other (remains dysphoric) Affect: Flat Thought Process & Associations: Linear Thought Content: Hallucinations, Thought blocking, Delusional Hallucination Type: Other (again internally stimulated) Delusion Type: Paranoid Suicidal Ideation: No Homicidal Ideation: No Insight: Poor Judgment: Poor Results Labs Labs reviewed. No new labs. Vitals/IOs Refusing vitals. Assessment & Plan Problem List: (1) Schizophrenia, undifferentiated, acute episode ICD Codes: F20.3 - Undifferentiated schizophrenia Assessment & Plan No meaningful benefit from ongoing antipsychotic adjustments. The patient is clearly suffering with ongoing paranoia and hallucinations, and at this point I believe the benefits of Risperdal, which has stabilized his condition in the past, clearly outweighed the potential risk of hyperprolactinemia. I will discontinue the patient's oral Zyprexa and replace it with Risperdal M tabs 1 mg twice daily with plans to titrate to effect. I will continue the Zyprexa IM backup should the patient refuse oral Risperdal. I will likewise continue the patient's Abilify and in fact titrate this agent to 20 mg daily as the partial dopamine agonism of the Abilify has the potential to lessen the degree of hyperprolactinemia the patient experiences with Risperdal. We will plan to trend prolactin and monitor for any clinical effects of hyperprolactinemia. Continue to monitor on the high acuity unit. Continue other medications and care as ordered. Justification for Cont. Inpt. Medication changes. Impairment in reality construction. High risk for decompensation in less restrictive environment. Discharge Planning Placement following psychiatric stabilization. Request HC Surrog/Guard Advoc?: Yes Neal Ortiz MD Oct 03, 2017 09:18
[2017-10-03] MEDS: OLANZapine ODT 10 MG TAB PO SCH (09:28)
[2017-10-03] MEDS ORDERED: OLANZapine IM 10 MG VIAL IM PRN (13:45)
[2017-10-03 17:28] VITALS: RESP 18
[2017-10-03] MEDS: risperiDONE ODT 1 MG TAB PO SCH (20:13)
[2017-10-04] MEDS: risperiDONE ODT 1 MG TAB PO SCH ×2 (09:00→20:18)
[2017-10-04 10:41] LABS: ALBUMIN 3.3 GM/DL (3.4-5.0); DIRECT BILIRUBIN ADULT 0.1 MG/DL (0.0-0.2)
[2017-10-04 10:42] LABS: INDIRECT BILIRUBIN 0.1 MG/DL (0.0-0.8); TOTAL BILIRUBIN ADULT 0.2 MG/DL (0.2-1.0); TOTAL PROTEIN 6.7 GM/DL (6.4-8.2)
--- NOTE | 2017-10-04 11:14 | HHI.PYPN ---
Subjective Chief Complaint: Psychosis Remarks patient seen and examined with counselor. Chart reviewed. Case discussed with nursing staff reports the patient has been medication compliant. Case discussed in treatment team with counselor and occupational therapist. Counselor reports that the [facility] packet was mailed yesterday. On my examination today, the patient seems for the first time this admission less paranoid. He does not, for example, shoo us away but is actually able to tolerate a brief interview. He remains internally stimulated. He is disheveled. Affect remains dysphoric. Denies side effects from medications. Says he thinks he had a bad tuna fish sandwich for dinner last night and complains of nausea and some diarrhea. No other physical complaints. Review of Systems ROS Limitations: Poor Historian Except as stated in HPI: all other systems reviewed are Neg Mental Status Examination Appearance: Disheveled Consciousness: Alert, Vigilant Orientation: Person Motor Activity: Other (no motor abnormalities appreciated) Speech: Unremarkable Language: Adequate Fund of Knowledge: Inadequate Attention and Concentration: Easily Distracted Mood: Other (remains dysphoric) Affect: Flat Thought Process & Associations: Linear Thought Content: Hallucinations, Thought blocking, Delusional Hallucination Type: Other (internally stimulated) Delusion Type: Paranoid (a little less paranoid today) Suicidal Ideation: No Homicidal Ideation: No Insight: Poor Judgment: Poor Results Labs Test 10/04/17 09:50 Total Bilirubin 0.2 MG/DL Direct Bilirubin 0.1 MG/DL Indirect Bilirubin 0.1 MG/DL Aspartate Amino Transf (AST/SGOT) 9 U/L Alanine Aminotransferase (ALT/SGPT) 14 U/L Alkaline Phosphatase 251 U/L Total Protein 6.7 GM/DL Albumin 3.3 GM/DL Labs reviewed. Alkaline phosphatase remains elevated twice the upper limit of normal. Vitals/IOs Vital Signs Date Time Temp Pulse Resp B/P (MAP) Pulse Ox O2 Delivery O2 Flow Rate FiO2 10/03/17 17:28 18 Intake and Output 10/04/17 10/04/17 10/05/17 08:00 16:00 00:00 Intake Total 240 ml Balance 240 ml Assessment & Plan Problem List: (1) Schizophrenia, undifferentiated, acute episode ICD Codes: F20.3 - Undifferentiated schizophrenia Assessment & Plan Patient seems improved today since starting Risperdal. Titrate Risperdal to 2 mg twice daily with Zyprexa IM backup. Continue Abilify as ordered. Alkaline phosphatase remains elevated although other LFTs are within normal limits, possibly suggesting cholestatic pattern. Check GGT. Check liver ultrasound. I will additionally consult the hospitalist as the patient may be having associated symptoms (e.g. nausea, stool changes). Continue to monitor on the high acuity unit. Continue other medications and care as ordered. Justification for Cont. Inpt. Med changes. Impairment in reality construction. High risk for decompensation in less restrictive environment. Discharge Planning If the patient is able to be psychiatrically stabilized, possibly placement. Alternatively state psychiatric hospital referral. Request HC Surrog/Guard Advoc?: Yes Neal Ortiz MD Oct 04, 2017 11:14
[2017-10-04] MEDS ORDERED: ONDANSETRON ODT 4 MG TAB PO PRN (15:00)
--- NOTE | 2017-10-04 15:29 | PD.TTN ---
Patient Problems 1. Discharge planning 2. Medication compliance 3. Knowledge deficit 4. Lack of coping skills Progress Toward Goals Provider Present: Dr. Angelika Ortiz Provider Input: Pt remains psychotic, paranoid and medication regiment will continue to be evaluated as well as adjusted as needed. 09/17- Pt remains unmedicated as there is no GA or HCS at this time and he remains largely psychotic. 09/20- Pt remains psychotic and requiring placement for after discharge. Medication regiment continues to be adjusted including Zyprexa. 09/24- Pt medication regiment remains under evaluation and is being adjusted including titration of Zyprexa 09/27- Pt has been taking his medication through IM as he is refusing oral medication. He will be considered for a new antipsychotic. 10/01- Pt remains psychotic and withdrawn. His medication regiment will be adjusted including increase of Zyprexa and addition of Abilify. He will be referred to [facility] due to poor response to treatment at this time. 10/04- Pt medication regiment has been adjusted to include Risperdal and Abilify. Nurse(s) Present: Sera Cooley RN Nurse(s) Input: Pt appears psychotic with minimal verbal communication. He has been no behavioral issue on unit. 09/20- Lizeth Felix RN Pt appears paranoid, agitated and has been refusing medications. 09/24- Dorys Shepard RN Pt appears anxious, runs away from contact, has been getting his medication through injection and appears withdrawn/psychotic. 09/27- Sylvia Luo RN Pt took medication orally for the first time today but remains largely uncooperative, guarded and with no consistency in behavior. 10/01- Daisy John RN Pt appears paranoid, agitated, aggressive, threatening and with increasing medication compliance. 10/04- Daisy John RN Pt appears seclusive, paranoid and remains no behavioral problem. He has been compliant with medication regiment. Psychiatric Counselors Present: MIGUEL ANGEL Mars Psych Therapist Input: Pt appears withdrawn, seclusive, psychotic, cooperative and appropriate. He continues to appear to be responding to internal stimuli. Pt presents with limited coping and emotional regulation skills. Pt has not been on medication to this point as team is awaiting [facility] to provide consent for medication as he will not consent. 09/17- Pt continues to appear psychotic, withdrawn, seclusive, guarded and uncooperative. Pt is not currently on any medication as he has no one to serve as a HCS. Pt remains withdrawn and poorly engaged in treatment on unit. He appears quite psychotic and with poor insight into condition and need for care. He appears to be utilizing some level of coping skills as there has been no outbursts on unit. 09/20- Pt has begun to be medicated and was retained by [facility]. He remains psychotic, withdrawn, easily agitated, uncooperative and guarded. He has limited insight into condition and need for care. Pt presents with limited coping and emotional regulation skills as well. He has been refusing his medication. 09/24- Pt continues to appear psychotic, withdrawn, seclusive, paranoid and uncooperative. Pt is poorly engaged in treatment on unit and is often seen pacing while talking to himself. He is somewhat resistant to medication regiment. Pt has poor insight into condition and need for care. He presents with limited coping and emotional regulation skills at this time. 09/27- Pt remains psychotic, delusional, withdrawn, uncooperative and easily agitated. He remains withdrawn to self and room. Pt is not compliant with medication regiment and must be given his medication through IM. He has poor insight into condition and need for care. Pt appears to be utilizing some level of coping and emotional regulation skills as he has had no outbursts. 10/01- Pt remains psychotic, delusional, withdrawn, isolated and threatening at times. He will not engage on unit and communicates only minimally. He is increasing his compliance with oral medications. Pt has limited insight into condition and need for care. He has limited coping and emotional regulation skills at this time as well. He will be referred for [facility]. 10/04- Pt continues to appear withdrawn and seclusive but was significantly more communicative today. He appeared less agitated and more organized. Pt has been more compliant with medication regiment. He continues to appear internally stimulated. He has been utilizing coping and emotional regulation skills as he has not had any outbursts. Insight and judgment into condition and need for care. He remains on the waiting list for [facility] but is showing improvement with medication. Group Spec/RT/OT/RUBIN Present: Harriet Ramires, GPS, MayteSCOTTIE Calixto Adam Lampert, COTA Group Spec/RT/OT/RUBIN Input: Pt does not attend groups. 09/17- Pt is exit seeking at times and has not been attending groups. 09/20- Pt does not attend groups. He isolates to his room. 09/24- Pt is paranoid, isolates to room and does not attend groups. 09/27- SCOTTIE Durham Pt isolates to room and does not attend groups. 10/01- SCOTTIE Gillette Pt does not attend groups. 10/04- SCOTTIE Gillette Pt does not participate in groups and is seclusive. Discharge Plan [facility] Pt will likely need placement after discharge as he is currently homeless and will be referred to [facility] as he has been responding poorly to treatment. He will be referred to [facility] if condition improves and this is appropriate. Documentation Scribe: Malcolm Paniagua Malcolm Pedraza [facility] Oct 04, 2017 15:29
--- NOTE | 2017-10-04 17:19 | PD.CONS ---
[facility] Consult Requested By Dr. Ortiz Reason for Consult Elevated alkaline phosphatase, reports of nausea, stool changes. Primary Care Physician No Primary Care Physician Diagnoses: History of Present Illness Patient is a 57-year-old male with primary medical history of schizophrenia who came into the hospital under [place] secondary to psychosis displaying aggressive behavior. He is now admitted to inpatient psychiatry unit for further evaluation. Consulted for nausea, elevated alkaline phosphatase, stool changes. Patient seen and examined today laying in bed. Reports he is doing well. States he has no medical issues or problems in the past. States he is not a big alcohol user he drinks occasionally. States he quit smoking about a year ago, smokes 1 pack per day for several years, unable to state the exact years. Admits to smoking "weed" almost every other day. Patient states that he had no nausea, vomiting. Reports to have diarrhea last night after eating tuna sandwich. Otherwise his morning and throughout the day he has not has any loose stools, abdominal pain, vomiting, nausea. Denies any fevers, chills. Denies any dysuria, hematuria. Denies hematemesis, hematochezia. Review of Systems Except as stated in HPI: all other systems reviewed are Neg Past Family Social History Allergies: Coded Allergies: perphenazine (Verified Allergy, Severe, 09/09/17) chlorpromazine (Verified Allergy, Unknown, 09/09/17) haloperidol (Verified Allergy, Unknown, 09/09/17) Per pt, "I seize up." risperidone (Verified Adverse Reaction, Unknown, 09/09/17) ELEVATED PROLACTIN LEVEL Past Medical History Denies any medical history Past Surgical History Tonsillectomy Reported Medications Reported Meds & Active Scripts Active Risperdal (Risperidone) 3 Mg Tab 3 Mg PO Q12HR 15 Days [Benztropine] 2 MG Tab 2 Mg PO DAILY@0900,1300,2100 15 Days Active Ordered Medications Current Medications Medications (Trade) Dose Ordered Sig/Tammi Route Start Time Stop Time Status Last Admin (Benadryl) 50 mg Q6H PRN PO 09/10/17 15:00 Future Hold 09/10/17 20:51 (Benadryl Inj) 50 mg Q6H PRN IM 09/10/17 15:00 Future Hold (Tylenol) 650 mg Q4H PRN PO 09/10/17 15:00 (Milk Of Magnesia Liq) 30 ml DAILY PRN PO 09/10/17 15:00 (Mag-Al Plus Susp Liq) 30 ml Q6H PRN PO 09/10/17 15:00 (Ativan) 1 mg Q6H PRN PO 09/11/17 12:15 Future Hold (Ativan Inj) 1 mg Q6H PRN IM 09/11/17 12:15 Future Hold (Abilify) 20 mg DAILY PO 10/04/17 09:00 10/04/17 09:00 (ZyPREXA INJ) 10 mg BID PRN IM 10/03/17 13:45 (risperDAL M-TAB) 2 mg Q12HR PO 10/04/17 21:00 (Zofran Odt) 4 mg Q6H PRN PO 10/04/17 15:00 Family History Father has high blood pressure Social History Occasional alcohol use Denies recent smoking, quit a year ago Marijuana use every other day Physical Exam Vital Signs Vital Signs Date Time Temp Pulse Resp B/P (MAP) Pulse Ox O2 Delivery O2 Flow Rate FiO2 10/03/17 17:28 18 Physical Exam GENERAL: This is a well-nourished, well-developed patient, in no apparent distress. Patient was pleasant and polite. SKIN: No rashes, ecchymoses or lesions. Warm and dry. HEAD: Normocephalic. EYES: Pupils equal round and reactive. No scleral icterus. No injection or drainage. ENT: Nose without bleeding. Throat without erythema. Uvula midline. Airway patent. NECK: Trachea midline. No JVD or lymphadenopathy. Supple, nontender, no meningeal signs. CARDIOVASCULAR: Regular rate and rhythm without murmurs, gallops, or rubs. RESPIRATORY: Clear to auscultation. Breath sounds equal bilaterally. No wheezes , rales, or rhonchi. GASTROINTESTINAL: Abdomen soft, non-tender, nondistended. No hepato-splenomegaly , or palpable masses. No guarding. Bowel sounds active 4. MUSCULOSKELETAL: Extremities without clubbing, cyanosis, or edema. NEUROLOGICAL: Awake and alert. Motor and sensory grossly within normal limits.Normal speech. Laboratory Laboratory Tests Test 10/04/17 09:50 Total Bilirubin 0.2 Direct Bilirubin 0.1 Indirect Bilirubin 0.1 Gamma Glutamyl Transpeptidase 8 Aspartate Amino Transf (AST/SGOT) 9 Alanine Aminotransferase (ALT/SGPT) 14 Alkaline Phosphatase 251 Total Protein 6.7 Albumin 3.3 Result Diagram: 10/01/17 1457 10/01/171456 Assessment and Plan Problem List: (1) Schizophrenia, undifferentiated, acute episode ICD Code: F20.3 - Undifferentiated schizophrenia Assessment and Plan Patient is a 57-year-old male with primary medical history of schizophrenia who came into the hospital under [place] secondary to psychosis displaying aggressive behavior. He is now admitted to inpatient psychiatry unit for further evaluation. Consulted for nausea, elevated alkaline phosphatase, stool changes. Schizophrenia, paranoid - Managed by psychiatry team Elevated alkaline phosphatase - Patient is asymptomatic. No tenderness to palpation throughout the abdomen. No nausea, vomiting, jaundiced noted. - Alkaline phosphatase 213 --> 251, >4 times normal limit - GTT 8 - US Liver ordered by primary team. Follow-up results. - GTT levels showed no elevation possible source of elevation of the alkaline phosphatase may not be hepatobiliary. Elevated bone alkaline phosphatase can be indicative of high bone turnover, check TSH, parathyroid hormone, vitamin D. - Intestinal alkaline phosphatase can also become elevated without clinical importance. This happens with a fatty meal. Noted that patient's blood was drawn post lunch time and post-breakfast. We will recheck fasting LFTs tomorrow. - Follow-up results. DVT prop ambulatory Code Status Full code Discussed Condition With Patient, nursing, Christine Saldivar Oct 04, 2017 17:19
[2017-10-04 18:22] LABS: CALCIUM 8.8 MG/DL (8.5-10.1); CREATININE 0.88 MG/DL (0.60-1.30)
[2017-10-04 18:32] LABS: FREE T4 0.88 NG/DL (0.76-1.46)
[2017-10-05 05:46] VITALS: BP 129/77; PULSE 94; RESP 18; TEMP 97.3; O2SAT 98
[2017-10-05] MEDS: risperiDONE ODT 1 MG TAB PO SCH ×2 (08:14→21:20)
--- NOTE | 2017-10-05 12:32 | HHI.PYPN ---
Subjective Chief Complaint: Psychosis Remarks Pt seen and discussed with staff. He remains paranoid and guarded.He continues to refuse ultrasound of Liver and labs due to paranoia. He is coming out of room for meals which is an improvement and today had some increased communication with staff. No SI/HI Mental Status Examination Appearance: Disheveled Consciousness: Alert, Vigilant Orientation: Person Motor Activity: Other (no motor abnormalities appreciated) Speech: Unremarkable Language: Adequate Fund of Knowledge: Inadequate Attention and Concentration: Easily Distracted Mood: Other (remains dysphoric) Affect: Flat Thought Process & Associations: Linear Thought Content: Hallucinations, Thought blocking, Delusional Hallucination Type: Other (internally stimulated) Delusion Type: Paranoid (a little less paranoid today) Suicidal Ideation: No Homicidal Ideation: No Insight: Poor Judgment: Poor Results Labs Test 10/05/17 06:00 Vitals/IOs Vital Signs Date Time Temp Pulse Resp B/P (MAP) Pulse Ox O2 Delivery O2 Flow Rate FiO2 10/05/17 05:46 97.3 94 18 129/77 (94) 98 Intake and Output 10/05/17 10/05/17 10/06/17 08:00 16:00 00:00 Intake Total 240 ml Balance 240 ml Assessment & Plan Problem List: (1) Schizophrenia, undifferentiated, acute episode ICD Codes: F20.3 - Undifferentiated schizophrenia Assessment & Plan continue current tx plan. Estimated LOS: days Justification for Cont. Inpt. impairments in reality testing Request HC Surrog/Guard Advoc?: Yes Riana Pope MD Oct 05, 2017 12:32
[2017-10-06] MEDS: risperiDONE ODT 1 MG TAB PO SCH ×2 (08:25→20:29)
[2017-10-06 10:05] LABS: ALBUMIN 3.1 GM/DL (3.4-5.0); DIRECT BILIRUBIN ADULT 0.1 MG/DL (0.0-0.2)
[2017-10-06 10:07] LABS: AUTOMATED NEUTROPHIL # 4.9 TH/MM3 (1.8-7.7); BASOPHIL # 0.1 TH/MM3 (0-0.2); BASOPHIL % 0.8 % (0.0-2.0); EOSINOPHIL # 0.1 TH/MM3 (0-0.4); EOSINOPHIL % 1.1 % (0.0-4.0); HEMATOCRIT 37.7 % (39.0-51.0); HEMOGLOBIN 12.9 GM/DL (13.0-17.0); INDIRECT BILIRUBIN 0.1 MG/DL (0.0-0.8); LYMPH % 24.6 % (9.0-44.0); LYMPHOCYTE # 1.8 TH/MM3 (1.0-4.8); MEAN CELL VOLUME 91.4 FL (80.0-100.0); MEAN CORPUSCULAR HEMOGLOBIN 31.4 PG (27.0-34.0); MEAN CORPUSCULAR HGB CONC 34.3 % (32.0-36.0); MONO % 4.7 % (0.0-8.0); MONOCYTE # 0.3 TH/MM3 (0-0.9); NEUT % 68.8 % (16.0-70.0); PLATELET COUNT 349 TH/MM3 (150-450); RED BLOOD COUNT 4.12 MIL/MM3 (4.50-5.90); TOTAL BILIRUBIN ADULT 0.2 MG/DL (0.2-1.0); TOTAL PROTEIN 6.5 GM/DL (6.4-8.2); WHITE BLOOD COUNT 7.2 TH/MM3 (4.0-11.0)
--- NOTE | 2017-10-06 17:12 | HHI.PYPN ---
Subjective Chief Complaint: Psychosis Remarks Pt seen and discussed with staff. He remains paranoid and remains seclusive to room. He refused labs and liver ultrasound again today but was compliant with medications. No SI/HI. Mental Status Examination Appearance: Disheveled Consciousness: Alert, Vigilant Orientation: Person Motor Activity: Other (no motor abnormalities appreciated) Speech: Unremarkable Language: Adequate Fund of Knowledge: Inadequate Attention and Concentration: Easily Distracted Mood: Other (remains dysphoric) Affect: Flat Thought Process & Associations: Linear Thought Content: Hallucinations, Thought blocking, Delusional Hallucination Type: Other (internally stimulated) Delusion Type: Paranoid (a little less paranoid today) Suicidal Ideation: No Homicidal Ideation: No Insight: Poor Judgment: Poor Results Labs Test 10/06/17 09:27 White Blood Count 7.2 TH/MM3 Red Blood Count 4.12 MIL/MM3 Hemoglobin 12.9 GM/DL Hematocrit 37.7 % Mean Corpuscular Volume 91.4 FL Mean Corpuscular Hemoglobin 31.4 PG Mean Corpuscular Hemoglobin Concent 34.3 % Red Cell Distribution Width 13.0 % Platelet Count 349 TH/MM3 Mean Platelet Volume 7.0 FL Neutrophils (%) (Auto) 68.8 % Lymphocytes (%) (Auto) 24.6 % Monocytes (%) (Auto) 4.7 % Eosinophils (%) (Auto) 1.1 % Basophils (%) (Auto) 0.8 % Neutrophils # (Auto) 4.9 TH/MM3 Lymphocytes # (Auto) 1.8 TH/MM3 Monocytes # (Auto) 0.3 TH/MM3 Eosinophils # (Auto) 0.1 TH/MM3 Basophils # (Auto) 0.1 TH/MM3 CBC Comment DIFF FINAL Differential Comment Total Bilirubin 0.2 MG/DL Direct Bilirubin 0.1 MG/DL Indirect Bilirubin 0.1 MG/DL Aspartate Amino Transf (AST/SGOT) 10 U/L Alanine Aminotransferase (ALT/SGPT) 14 U/L Alkaline Phosphatase 271 U/L Total Protein 6.5 GM/DL Albumin 3.1 GM/DL 25-Hydroxy Vitamin D Total 17.8 ng/ML Parathyroid Hormone (Intact) 22.0 PG/ML Vitals/IOs Vital Signs Date Time Temp Pulse Resp B/P (MAP) Pulse Ox O2 Delivery O2 Flow Rate FiO2 10/05/17 05:46 97.3 94 18 129/77 (94) 98 Assessment & Plan Problem List: (1) Schizophrenia, undifferentiated, acute episode ICD Codes: F20.3 - Undifferentiated schizophrenia Assessment & Plan Continue current tx plan. Estimated LOS: days Justification for Cont. Inpt. impairments in reality testing Request HC Surrog/Guard Advoc?: Yes Riana Pope MD Oct 06, 2017 17:12
[2017-10-07 06:08] VITALS: BP 137/75; PULSE 99; RESP 16; TEMP 98.1; O2SAT 97
[2017-10-07] MEDS: risperiDONE ODT 1 MG TAB PO SCH (09:10)
[2017-10-07] MEDS: CHOLECALCIFEROL (VIT D3) 1000 UNIT TAB PO SCH (09:11)
--- NOTE | 2017-10-07 10:04 | HHI.PYPN ---
Subjective Chief Complaint: Psychosis Remarks Patient seen and examined with nurse. Chart reviewed. Case discussed with nursing staff. Patient noted by nursing to be slowly improving with respect psychosis. On my exam, the patient is able to tolerate a somewhat more extended interview. He denies AVH. He continues to appear internally stimulated however. He denies paranoia but again appears quite guarded. Affect is dysphoric. He continues to refuse liver ultrasound. He denies side effects from medications. Reports diarrhea that he complained of last week is improved. No other physical complaints at this time. Review of Systems ROS Limitations: Psychotic, Poor Historian Except as stated in HPI: all other systems reviewed are Neg Mental Status Examination Appearance: Disheveled Consciousness: Alert, Vigilant (a little less so) Orientation: Person Motor Activity: Other (no abnormal motor movements noted) Speech: Unremarkable Language: Adequate Fund of Knowledge: Inadequate Attention and Concentration: Easily Distracted Mood: Other (dysphoric) Affect: Flat Thought Process & Associations: Linear Thought Content: Hallucinations, Thought blocking, Delusional Hallucination Type: Other (remains internally stimulated) Delusion Type: Paranoid (again a little less today) Suicidal Ideation: No Homicidal Ideation: No Insight: Poor Judgment: Poor Results Labs Labs reviewed Vitals/IOs Vital Signs Date Time Temp Pulse Resp B/P (MAP) Pulse Ox O2 Delivery O2 Flow Rate FiO2 10/07/17 06:08 98.1 99 16 137/75 (95) 97 Assessment & Plan Problem List: (1) Schizophrenia, undifferentiated, acute episode ICD Codes: F20.3 - Undifferentiated schizophrenia Assessment & Plan Titrate Risperdal to 3 mg twice daily to target psychosis. Continue Abilify as ordered. Hospitalist input noted and appreciated. I have encouraged the patient to allow workup but he continues to decline. Continue other medications and care as ordered. Justification for Cont. Inpt. Med changes. Impairment in reality construction. High risk for decompensation and less restrictive environment. Discharge Planning Pending psychiatric stabilization. Request HC Surrog/Guard Advoc?: Yes Neal Ortiz MD Oct 07, 2017 10:04
[2017-10-07] MEDS: risperiDONE ODT 3 MG TAB PO SCH (20:18)
[2017-10-08 05:52] VITALS: BP 133/79; PULSE 85; RESP 18; TEMP 96.8; O2SAT 97
[2017-10-08] MEDS: CHOLECALCIFEROL (VIT D3) 1000 UNIT TAB PO SCH (09:19)
[2017-10-08] MEDS: risperiDONE ODT 3 MG TAB PO SCH ×2 (09:19→21:49)
--- NOTE | 2017-10-08 10:52 | HHI.PYPN ---
Subjective Chief Complaint: Psychosis Remarks Patient seen and examined with nurse. Chart reviewed. Case discussed with nurse and in treatment team. Nurse has seen considerable improvement following initiation of Risperdal. On my examination today, the patient seems considerably more at ease. He tends to seclude in his room still but is spending more time in the milieu. He is more interactive in conversation. He tells me that he is "getting ready for benson." He denies SI/HI/AVH. Continues to decline labs/studies. Denies side effects from medications. No physical complaints. Review of Systems ROS Limitations: Psychotic, Poor Historian Except as stated in HPI: all other systems reviewed are Neg Mental Status Examination Appearance: Disheveled Consciousness: Alert Orientation: Person (at least) Motor Activity: Other (no motoric abnormalities noted) Speech: Unremarkable Language: Adequate Fund of Knowledge: Inadequate Attention and Concentration: Adequate Mood: Other (calm) Affect: Flat Thought Process & Associations: Linear Thought Content: Hallucinations, Thought blocking (mild), Delusional Hallucination Type: Other (internally preoccupied, mutters to himself) Delusion Type: Paranoid (decreasing) Suicidal Ideation: No Homicidal Ideation: No Insight: Poor Judgment: Poor Results Labs Refusing laboratories Vitals/IOs Vital Signs Date Time Temp Pulse Resp B/P (MAP) Pulse Ox O2 Delivery O2 Flow Rate FiO2 10/08/17 05:52 96.8 85 18 133/79 (97) 97 Assessment & Plan Problem List: (1) Schizophrenia, undifferentiated, acute episode ICD Codes: F20.3 - Undifferentiated schizophrenia Assessment & Plan Patient is responding nicely to Risperdal and appears to be tolerating this agent well. I will initiate Risperdal Consta 25mg IM and continue oral Risperdal supplementation. Plan to check prolactin end of the week. Continue Abilify as ordered. Hospitalist input noted and appreciated. Continue to monitor on high acuity unit. Continue other medications and care as ordered. Justification for Cont. Inpt. Med changes. Impairment in reality construction. High risk for decompensation in less restrictive setting. [facility] Request HC Surrog/Guard Advoc?: Yes Neal Ortiz MD Oct 08, 2017 10:52
--- NOTE | 2017-10-08 11:12 | HHI.PR ---
Subjective Remarks No further complaints of nausea. Abdominal symptoms are minimal. Repeat blood work pending. Patient is declining lab draws at this time. He is encouraged to obtain lab draws. We're monitoring to see if his alkaline phosphatase has downward trend. Once downward trend is establishment further monitoring will be needed. Objective Vital Signs Date Time Temp Pulse Resp B/P (MAP) Pulse Ox O2 Delivery O2 Flow Rate FiO2 10/08/17 05:52 96.8 85 18 133/79 (97) 97 Result Diagram: 10/06/1727 10/04/17 0950 Objective Remarks GENERAL: NAD, A&Ox1 HEAD: Normocephalic. NECK: Supple, trachea midline. No lymphadenopathy. EYES: No scleral icterus. No injection or drainage. CARDIOVASCULAR: Regular rate and rhythm without murmurs, gallops, or rubs. RESPIRATORY: Breath sounds equal bilaterally. No accessory muscle use. GASTROINTESTINAL: Abdomen soft, non-tender, nondistended. MUSCULOSKELETAL: No cyanosis, or edema. SKIN: Warm and dry. NEURO: No focal neurological deficitis. 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 Nausea with elevation and alkaline phosphatase were present at time of admit. Schizophrenia, paranoid Continue management per psychiatry. Elevated alkaline phosphatase Continue to monitor alkaline phosphatase until downward trend is seen Etiology may be viral Nausea and abdominal pain have resolved Patient is not compliant with lab draws, but will wait to see levels DVT prophylaxis Patient is ambulatory Vinny Guzman MD Oct 08, 2017 11:12
[2017-10-08] MEDS ORDERED: risperiDONE EXT REL INJ 25 MG/2 ML VIAL IM ONE (15:00)
[2017-10-09] MEDS: risperiDONE ODT 3 MG TAB PO SCH (09:27)
[2017-10-09] MEDS: CHOLECALCIFEROL (VIT D3) 1000 UNIT TAB PO SCH (09:27)
--- NOTE | 2017-10-09 12:08 | HHI.PYPN ---
Subjective Chief Complaint: Psychosis Remarks Patient seen and examined with nurse. Chart reviewed. Patient eating and sleeping well. Case discussed with nursing staff who reports the patient is isolative and complains of constipation. On my examination today, the patient is secluding in his room. He once again is more interactive. He denies any suicidal or homicidal ideation. He denies any hallucinations but remains internally preoccupied. Paranoia is decreasing. He received Risperdal Consta without incident yesterday and denies side effects from this or other medications. No physical complaints. Mental Status Examination Appearance: Disheveled Consciousness: Alert Orientation: Person, Place Motor Activity: Other (no motoric abnormalities noted) Speech: Unremarkable Language: Adequate Fund of Knowledge: Inadequate Attention and Concentration: Adequate Mood: Other (calm) Affect: Flat Thought Process & Associations: Linear Thought Content: Hallucinations, Thought blocking (mild), Delusional Hallucination Type: Other (internally preoccupied, mutters to himself) Delusion Type: Paranoid (continues to decrease) Suicidal Ideation: No Homicidal Ideation: No Insight: Poor Judgment: Poor Results Labs Continues to refuse laboratories. Continues to refuse liver ultrasound. Vitals/IOs Vital Signs Date Time Temp Pulse Resp B/P (MAP) Pulse Ox O2 Delivery O2 Flow Rate FiO2 10/08/17 05:52 96.8 85 18 133/79 (97) 97 Assessment & Plan Problem List: (1) Schizophrenia, undifferentiated, acute episode ICD Codes: F20.3 - Undifferentiated schizophrenia Assessment & Plan Titrate Risperdal to 4 mg twice daily to target residual psychotic symptoms. The patient does seem to be responding nicely to this agent, albeit somewhat slowly. We might consider administering a larger dose of Risperdal Consta when he is next due for this agent. Continue Abilify as ordered. Bowel regimen. Follow-up prolactin level ordered for later this week. Continue to monitor on the inpatient unit. Continue other medications and care as ordered. Justification for Cont. Inpt. Medication changes. Impairment in reality construction, slowly resolving. High risk for decompensation and less restrictive environment. Discharge Planning Placement versus state psychiatric hospital referral. Request HC Surrog/Guard Advoc?: Yes Neal Ortiz MD Oct 09, 2017 12:08
[2017-10-09] MEDS ORDERED: BISACODYL EC 5 MG TABEC PO PRN (14:45)
--- NOTE | 2017-10-09 15:27 | PD.TTN ---
Patient Problems 1. Discharge planning 2. Medication compliance 3. Knowledge deficit 4. Lack of coping skills Progress Toward Goals Provider Present: Dr. Angelika Ortiz Provider Input: Pt remains psychotic, paranoid and medication regiment will continue to be evaluated as well as adjusted as needed. 09/17- Pt remains unmedicated as there is no GA or HCS at this time and he remains largely psychotic. 09/20- Pt remains psychotic and requiring placement for after discharge. Medication regiment continues to be adjusted including Zyprexa. 09/24- Pt medication regiment remains under evaluation and is being adjusted including titration of Zyprexa 09/27- Pt has been taking his medication through IM as he is refusing oral medication. He will be considered for a new antipsychotic. 10/01- Pt remains psychotic and withdrawn. His medication regiment will be adjusted including increase of Zyprexa and addition of Abilify. He will be referred to [facility] due to poor response to treatment at this time. 10/04- Pt medication regiment has been adjusted to include Risperdal and Abilify. 10/08- Pt has been referred to [facility]. He remains psychotic and regiment has been adjusted to include increase in Risperdal and Abilify. Plan is to implement long acting injection. Nurse(s) Present: Sera Cooley RN Nurse(s) Input: Pt appears psychotic with minimal verbal communication. He has been no behavioral issue on unit. 09/20- Lizeth Felix RN Pt appears paranoid, agitated and has been refusing medications. 09/24- Dorys Shepard RN Pt appears anxious, runs away from contact, has been getting his medication through injection and appears withdrawn/psychotic. 09/27- Sylvia Luo RN Pt took medication orally for the first time today but remains largely uncooperative, guarded and with no consistency in behavior. 10/01- Daisy John RN Pt appears paranoid, agitated, aggressive, threatening and with increasing medication compliance. 10/04- Daisy John RN Pt appears seclusive, paranoid and remains no behavioral problem. He has been compliant with medication regiment. 10/08- Shannon Graham RN Pt appears more visible on unit, has been asking for food more and has been compliant with medication regiment though he continues to refuse labs. Psychiatric Counselors Present: Malcolm Paniagua [facility] Psych Therapist Input: Pt appears withdrawn, seclusive, psychotic, cooperative and appropriate. He continues to appear to be responding to internal stimuli. Pt presents with limited coping and emotional regulation skills. Pt has not been on medication to this point as team is awaiting HCS to provide consent for medication as he will not consent. 09/17- Pt continues to appear psychotic, withdrawn, seclusive, guarded and uncooperative. Pt is not currently on any medication as he has no one to serve as a HCS. Pt remains withdrawn and poorly engaged in treatment on unit. He appears quite psychotic and with poor insight into condition and need for care. He appears to be utilizing some level of coping skills as there has been no outbursts on unit. 09/20- Pt has begun to be medicated and was retained by [facility]. He remains psychotic, withdrawn, easily agitated, uncooperative and guarded. He has limited insight into condition and need for care. Pt presents with limited coping and emotional regulation skills as well. He has been refusing his medication. 09/24- Pt continues to appear psychotic, withdrawn, seclusive, paranoid and uncooperative. Pt is poorly engaged in treatment on unit and is often seen pacing while talking to himself. He is somewhat resistant to medication regiment. Pt has poor insight into condition and need for care. He presents with limited coping and emotional regulation skills at this time. 09/27- Pt remains psychotic, delusional, withdrawn, uncooperative and easily agitated. He remains withdrawn to self and room. Pt is not compliant with medication regiment and must be given his medication through IM. He has poor insight into condition and need for care. Pt appears to be utilizing some level of coping and emotional regulation skills as he has had no outbursts. 10/01- Pt remains psychotic, delusional, withdrawn, isolated and threatening at times. He will not engage on unit and communicates only minimally. He is increasing his compliance with oral medications. Pt has limited insight into condition and need for care. He has limited coping and emotional regulation skills at this time as well. He will be referred for [facility]. 10/04- Pt continues to appear withdrawn and seclusive but was significantly more communicative today. He appeared less agitated and more organized. Pt has been more compliant with medication regiment. He continues to appear internally stimulated. He has been utilizing coping and emotional regulation skills as he has not had any outbursts. Insight and judgment into condition and need for care. He remains on the waiting list for [facility] but is showing improvement with medication. 1/2- Pt continues to appear psychotic and withdrawn but is more communicative. Pt has been struggling to utilize coping and emotional regulation skills as he remains fearful and withdrawn to self. Pt presents with limited insight into condition and need for care. Group Spec/RT/OT/RUBIN Present: Harriet Ramires, GPS, SCOTTIE Gillette Adam Lampert, COTA Group Spec/RT/OT/RUBIN Input: Pt does not attend groups. 09/17- Pt is exit seeking at times and has not been attending groups. 09/20- Pt does not attend groups. He isolates to his room. 09/24- Pt is paranoid, isolates to room and does not attend groups. 09/27- SCOTTIE Durham Pt isolates to room and does not attend groups. 10/01- SCOTTIE Gillette Pt does not attend groups. 10/04- SCOTTIE Gillette Pt does not participate in groups and is seclusive. 10/08- Pt isolates and does not attend groups. Discharge Plan SMA Pt will likely need placement after discharge as he is currently homeless and will be referred to [facility] as he has been responding poorly to treatment. He will be referred to [facility] if condition improves and this is appropriate. Documentation Scribe: Malcolm Paniagua Malcolm Pedraza LM Oct 09, 2017 15:27
--- NOTE | 2017-10-09 15:33 | HHI.PR ---
Subjective Remarks Follow-up for elevated alkaline phosphatase Patient asymptomatic. He denies any abdominal pain, nausea, vomiting. Patient stated that he is no issues. Patient has been declining labs. When I told him that I order lab today and I explained why he stated that he will allow it but then he stated that he needs a couple days. Objective Result Diagram: 10/06/17 0927 Objective Remarks GENERAL: in NAD CARDIOVASCULAR: Regular rate and rhythm without murmurs, gallops, or rubs. RESPIRATORY: Breath sounds equal bilaterally. No accessory muscle use. GASTROINTESTINAL: Abdomen soft, non-tender, nondistended. MUSCULOSKELETAL: No cyanosis, or edema. BACK: Nontender without obvious deformity. No CVA tenderness. Medications and IVs Current Medications Diphenhydramine HCl (Benadryl) 50 mg Q6H PRN PO EPS or insomnia Last administered on 09/10/17t 20:51; Start 09/10/17 at 15:00; Status Future Hold Diphenhydramine HCl (Benadryl Inj) 50 mg Q6H PRN IM EPS, unable to take PO; Start 09/10/17 at 15:00; Status Future Hold Acetaminophen (Tylenol) 650 mg Q4H PRN PO Pain 1-5 or Temp >101F; Start at 15:00 Magnesium Hydroxide (Milk Of Magnesia Liq) 30 ml DAILY PRN PO CONSTIPATION; Start 09/10/17 at 15:00; Stop 10/09/17 at 14:35; Status DC Al Hydrox/Mg Hydrox/Simethicone (Mag-Al Plus Susp Liq) 30 ml Q6H PRN PO DYSPEPSIA; Start 09/10/17 at 15:00 Lorazepam (Ativan) 1 mg Q6H PRN PO ANXIETY; Start 09/11/17 at 12:15; Status Future Hold Lorazepam (Ativan Inj) 1 mg Q6H PRN IM ANXIETY, unable to take PO; Start at 12:15; Status Future Hold Aripiprazole (Abilify) 15 mg DAILY PO ; Start 09/11/17 at 12:15; Stop 09/19/17 at 12:27; Status DC Aripiprazole (Abilify) 15 mg HS PO ; Start 09/19/17 at 21:00; Stop 09/25/17 at 10:45; Status DC Olanzapine (ZyPREXA INJ) 10 mg HS PRN IM Refuses PO Abilify Last administered on 09/24/17 20:55; Start 09/19/17 at 12:30; Stop 09/25/17 at 10:45; Status DC Olanzapine (ZyPREXA INJ) 5 mg DAILY IM Last administered on 09/24/17 10:05; Start 09/23/17 at 11:00; Stop 09/24/17 at 13:11; Status DC Olanzapine (ZyPREXA INJ) 10 mg DAILY IM Last administered on 09/25/17 10:00; Start 09/25/17 at 09:00; Stop 09/25/17 at 10:45; Status DC Olanzapine (ZyPREXA INJ) 10 mg BID PRN IM Refuses PO Zyprexa Last administered on 09/26/17 09:33; Start 09/25/17 at 10:45; Stop 09/26/17 at 14:30; Status DC Olanzapine (ZyPREXA ZYDIS ODT) 10 mg BID PO ; Start 09/25/17 at 21:00; Stop at 14:30; Status DC Olanzapine (ZyPREXA ZYDIS ODT) 10 mg DAILY@0900,1500,2100 PO Last administered on 10/03/17 09:28; Start 09/26/17 at 15:00; Stop 10/03/17 at 13:45; Status DC Olanzapine (ZyPREXA INJ) 10 mg DAILY@0900,1500,2100 PRN IM Refuses PO Zyprexa Last administered on 09/26/17 20:42; Start 09/26/17 at 14:30; Stop 10/03/17 at 13:45; Status DC Aripiprazole (Abilify) 5 mg DAILY PO Last administered on 10/01/17 09:00; Start 09/30/17 at 10:30; Stop 10/01/17 at 11:24; Status DC Aripiprazole (Abilify) 10 mg DAILY PO Last administered on 10/02/17 09:00; Start 10/02/17 at 09:00; Stop 10/02/17 at 15:22; Status DC Aripiprazole (Abilify) 15 mg DAILY PO Last administered on 10/03/17 09:28; Start 10/03/17 at 09:00; Stop 10/03/17 at 13:45; Status DC Aripiprazole (Abilify) 20 mg DAILY PO Last administered on 10/09/17 09:27; Start 10/04/17 at 09:00 Olanzapine (ZyPREXA INJ) 10 mg BID PRN IM Refuses PO Risperdal; Start at 13:45; Stop 10/08/17 at 14:53; Status DC Risperidone (risperDAL M-TAB) 1 mg Q12HR PO Last administered on 10/04/17 09: 00; Start 10/03/17 at 21:00; Stop 10/04/17 at 14:09; Status DC Risperidone (risperDAL M-TAB) 2 mg Q12HR PO Last administered on 10/07/17 09:10 ; Start 10/04/17 at 21:00; Stop 10/07/17 at 10:02; Status DC Ondansetron HCl (Zofran Odt) 4 mg Q6H PRN PO NAUSEA OR VOMITING; Start at 15:00 Cholecalciferol (Vitamin D3) 1,000 units DAILY PO Last administered on 09:27; Start 10/07/17 at 09:00 Risperidone (risperDAL M-TAB) 3 mg Q12HR PO Last administered on 10/09/17at 09:27 ; Start 10/07/17 at 21:00; Stop 10/09/17 at 14:35; Status DC Risperidone (RisperDAL CONSTA INJ) 25 mg ONCE ONCE IM Last administered on 10/08at 15:00; Start 10/08/17 at 15:00; Stop 10/08/17 at 15:52; Status DC Risperidone (risperDAL M-TAB) 4 mg Q12HR PO ; Start 10/09/17 at 21:00 Docusate Sodium (Colace) 100 mg BID PO ; Start 10/09/17 at 21:00 Bisacodyl (Dulcolax Ec) 10 mg DAILY PRN PO NO BM IN 24 HOURS; Start 10/09/17 at 14:45 A/P Problem List: (1) Schizophrenia, undifferentiated, acute episode ICD Code: F20.3 - Undifferentiated schizophrenia Assessment and Plan 57-year-old male admitted with schizophrenia and secondary to psychosis displaying aggressive behavior. Nausea with elevation and alkaline phosphatase were present at time of admit. Schizophrenia, paranoid Continue management per psychiatry. Elevated alkaline phosphatase Continue to monitor alkaline phosphatase until downward trend is seen Etiology may be viral Patient is asymptomatic. Will repeat lab and if continues to trend down can DC further workup for this. He does intermittently refuse labs to hopefully we are able to obtain this. DVT prophylaxis Patient is ambulatory Valentine Riggins MD Oct 09, 2017 15:33
[2017-10-09 17:21] VITALS: BP 146/87; PULSE 99; RESP 18; TEMP 98.6; O2SAT 99
[2017-10-09] MEDS: DOCUSATE SODIUM 100 MG CAP PO SCH (20:44)
[2017-10-09] MEDS: risperiDONE ODT 2 MG TAB PO SCH (20:45)
[2017-10-10] MEDS: risperiDONE ODT 2 MG TAB PO SCH ×2 (08:34→20:24)
[2017-10-10] MEDS: CHOLECALCIFEROL (VIT D3) 1000 UNIT TAB PO SCH (08:35)
[2017-10-10] MEDS: DOCUSATE SODIUM 100 MG CAP PO SCH ×2 (08:35→20:23)
[2017-10-10 10:38] LABS: ALBUMIN 3.5 GM/DL (3.4-5.0); AST (GOT) 13 U/L (15-37); BICARBONATE 24.4 MEQ/L (21.0-32.0); BLOOD UREA NITROGEN 13 MG/DL (7-18); CHLORIDE 105 MEQ/L (98-107); CREATININE 0.75 MG/DL (0.60-1.30); GLOMERULAR FILTRATION RATE 108 ML/MIN (>89); GLUCOSE,RANDOM 145 MG/DL (74-106); SODIUM (NA) 140 MEQ/L (136-145)
[2017-10-10 10:44] LABS: ALKALINE PHOSPHATASE 310 U/L (45-117); ALT (GPT) 20 U/L (12-78); TOTAL BILIRUBIN ADULT 0.2 MG/DL (0.2-1.0); TOTAL PROTEIN 7.1 GM/DL (6.4-8.2)
--- NOTE | 2017-10-10 11:24 | HHI.PYPN ---
Subjective Chief Complaint: Psychosis Remarks Patient seen and examined with nurse. Chart reviewed. Eating well and slept 8 hours overnight. Case discussed with nursing staff. Patient noted by staff to be more interactive and more sociable. I find the patient in his room. He welcomes the visit today and is interactive in our discussion. He is looking forward to lunch. He denies SI/HI/AVH. Denies side effects from medications. No physical complaints. I encouraged even more participation in unit activities , and he seemed receptive. Patient is agreeable to placement. Review of Systems ROS Limitations: Psychotic (decreasing), Poor Historian Except as stated in HPI: all other systems reviewed are Neg Mental Status Examination Appearance: Disheveled (grooming slowly improving) Consciousness: Alert Orientation: Person, Place Motor Activity: Other (no abnormal motor movements noted) Speech: Unremarkable Language: Adequate Fund of Knowledge: Inadequate Attention and Concentration: Adequate Mood: Appropriate Affect: Blunt (affect is more interactive) Thought Process & Associations: Linear Thought Content: Delusional Hallucination Type: None (denies AVH) Delusion Type: Paranoid (again decreasing) Suicidal Ideation: No Homicidal Ideation: No Insight: Poor Judgment: Poor Results Labs Test 10/10/17 09:51 Blood Urea Nitrogen 13 MG/DL Creatinine 0.75 MG/DL Random Glucose 145 MG/DL Total Protein 7.1 GM/DL Albumin 3.5 GM/DL Calcium Level 9.0 MG/DL Alkaline Phosphatase 310 U/L Aspartate Amino Transf (AST/SGOT) 13 U/L Alanine Aminotransferase (ALT/SGPT) 20 U/L Total Bilirubin 0.2 MG/DL Sodium Level 140 MEQ/L Potassium Level 4.0 MEQ/L Chloride Level 105 MEQ/L Carbon Dioxide Level 24.4 MEQ/L Anion Gap 11 MEQ/L Estimat Glomerular Filtration Rate 108 ML/MIN Labs reviewed. Ongoing isolated alkaline phosphatase elevation. Vitals/IOs Vital Signs Date Time Temp Pulse Resp B/P (MAP) Pulse Ox O2 Delivery O2 Flow Rate FiO2 10/09/17 17:21 98.6 99 18 146/87 (106) 99 Assessment & Plan Problem List: (1) Schizophrenia, undifferentiated, acute episode ICD Codes: F20.3 - Undifferentiated schizophrenia Assessment & Plan Continue Risperdal and Abilify as ordered. Check updated prolactin level tomorrow. Plan to administer larger dose of Risperdal Consta when he is next due for this agent. Hospitalist input noted and appreciated. Continue to monitor on the inpatient unit. Continue other medications and care as ordered. Justification for Cont. Inpt. Resolving impairments in reality construction. Impairment in self-care. High risk for decompensation in less restrictive environment. Discharge Planning Placement. Case discussed with counselor. Request HC Surrog/Guard Advoc?: Yes Neal Ortiz MD Oct 10, 2017 11:24
[2017-10-10 16:50] VITALS: BP 151/85; PULSE 122; RESP 17; TEMP 97.8; O2SAT 98
[2017-10-11 07:55] VITALS: BP 132/86; PULSE 115; RESP 18; TEMP 97.5; O2SAT 99
[2017-10-11] MEDS: DOCUSATE SODIUM 100 MG CAP PO SCH ×2 (09:27→20:10)
[2017-10-11] MEDS: risperiDONE ODT 2 MG TAB PO SCH ×2 (09:27→20:09)
[2017-10-11] MEDS: CHOLECALCIFEROL (VIT D3) 1000 UNIT TAB PO SCH (09:27)
--- NOTE | 2017-10-11 10:31 | HHI.PYPN ---
Subjective Chief Complaint: Psychosis Remarks Patient seen and examined with counselor. Chart reviewed. Case discussed with nursing staff and in treatment team. Nurse notes how much more interactive the patient is with medication adjustments. On my examination today, the patient continues to evince improved socialization and decreased paranoia. He allows the lab to draw his prolactin level. Denies side effects from medications. Remains agreeable to placement. No physical complaints. Review of Systems ROS Limitations: Psychotic (resolving), Poor Historian Except as stated in HPI: all other systems reviewed are Neg Mental Status Examination Appearance: Disheveled (grooming again slowly improving) Consciousness: Alert Orientation: Person, Place Motor Activity: Other (no motor abnormalities noted) Speech: Unremarkable Language: Adequate Fund of Knowledge: Inadequate Attention and Concentration: Adequate Mood: Appropriate Affect: Blunt (affect is again more interactive) Thought Process & Associations: Linear Thought Content: Delusional Hallucination Type: None (denies AVH) Delusion Type: Paranoid (decreasing) Suicidal Ideation: No Homicidal Ideation: No Insight: Poor Judgment: Poor Results Labs Labs reviewed. Ongoing, slowly increasing alk phos elevation, defer to hospitalist regarding workup of this issue. Prolactin level drawn, pending. EKG (obtained due to tachycardia noted on exam today) sinus rhythm QTcH 408ms. Vitals/IOs Vital Signs Date Time Temp Pulse Resp B/P (MAP) Pulse Ox O2 Delivery O2 Flow Rate FiO2 10/11/17 07:55 97.5 115 18 132/86 (101) 99 Assessment & Plan Problem List: (1) Schizophrenia, undifferentiated, acute episode ICD Codes: F20.3 - Undifferentiated schizophrenia Assessment & Plan Continue oral Risperdal augmenting Risperdal Consta. Continue Abilify. Follow up Prolactin. Await hospitalist follow up of AlkPhos elevation, and I have asked RN to make hospitalist aware of tachycardia in case this needs further workup as well, although the patient seems asymptomatic at this point. Continue to monitor on the inpatient unit. Continue other medications and care as ordered. Justification for Cont. Inpt. Risk for decompensation in less restrictive environment Discharge Planning Placement. Case discussed with counselor. [facility] referral is a backup plan. Request HC Surrog/Guard Advoc?: Yes Neal Ortiz MD Oct 11, 2017 10:31
--- NOTE | 2017-10-11 14:08 | PD.TTN ---
Patient Problems 1. Discharge planning 2. Medication compliance 3. Knowledge deficit 4. Lack of coping skills Progress Toward Goals Provider Present: Dr. Angelika Ortiz Provider Input: Pt remains psychotic, paranoid and medication regiment will continue to be evaluated as well as adjusted as needed. 09/17- Pt remains unmedicated as there is no GA or HCS at this time and he remains largely psychotic. 09/20- Pt remains psychotic and requiring placement for after discharge. Medication regiment continues to be adjusted including Zyprexa. 09/24- Pt medication regiment remains under evaluation and is being adjusted including titration of Zyprexa 09/27- Pt has been taking his medication through IM as he is refusing oral medication. He will be considered for a new antipsychotic. 10/01- Pt remains psychotic and withdrawn. His medication regiment will be adjusted including increase of Zyprexa and addition of Abilify. He [facility] due to poor response to treatment at this time. 10/04- Pt medication regiment has been adjusted to include Risperdal and Abilify. 10/08- Pt has been referred to [facility]. He remains psychotic and regiment has been adjusted to include increase in Risperdal and Abilify. Plan is to implement long acting injection. 10/11- Pt has been more interactive on unit and will be considered for placement in an [facility] due to his improvement. Pt medication regiment will be evaluated and will include a long acting injection form of his medication. Nurse(s) Present: Sera Cooley RN Nurse(s) Input: Pt appears psychotic with minimal verbal communication. He has been no behavioral issue on unit. 09/20- Lizeth Felix RN Pt appears paranoid, agitated and has been refusing medications. 09/24- Dorys Shepard RN Pt appears anxious, runs away from contact, has been getting his medication through injection and appears withdrawn/psychotic. 09/27- Sylvia Luo RN Pt took medication orally for the first time today but remains largely uncooperative, guarded and with no consistency in behavior. 10/01- Daisy John RN Pt appears paranoid, agitated, aggressive, threatening and with increasing medication compliance. 10/04- Daisy Jhon RN Pt appears seclusive, paranoid and remains no behavioral problem. He has been compliant with medication regiment. 10/08- Shannon Graham RN Pt appears more visible on unit, has been asking for food more and has been compliant with medication regiment though he continues to refuse labs. 10/11- Shannon Graham RN Pt appeared less paranoid, medication compliant, more visible on unit and much improved overall. Psychiatric Counselors Present: Malcolm Paniagua [facility] Psych Therapist Input: Pt appears withdrawn, seclusive, psychotic, cooperative and appropriate. He continues to appear to be responding to internal stimuli. Pt presents with limited coping and emotional regulation skills. Pt has not been on medication to this point as team is awaiting HCS to provide consent for medication as he will not consent. 09/17- Pt continues to appear psychotic, withdrawn, seclusive, guarded and uncooperative. Pt is not currently on any medication as he has no one to serve as a HCS. Pt remains withdrawn and poorly engaged in treatment on unit. He appears quite psychotic and with poor insight into condition and need for care. He appears to be utilizing some level of coping skills as there has been no outbursts on unit. 09/20- Pt has begun to be medicated and was retained by [facility]. He remains psychotic, withdrawn, easily agitated, uncooperative and guarded. He has limited insight into condition and need for care. Pt presents with limited coping and emotional regulation skills as well. He has been refusing his medication. 09/24- Pt continues to appear psychotic, withdrawn, seclusive, paranoid and uncooperative. Pt is poorly engaged in treatment on unit and is often seen pacing while talking to himself. He is somewhat resistant to medication regiment. Pt has poor insight into condition and need for care. He presents with limited coping and emotional regulation skills at this time. 09/27- Pt remains psychotic, delusional, withdrawn, uncooperative and easily agitated. He remains withdrawn to self and room. Pt is not compliant with medication regiment and must be given his medication through IM. He has poor insight into condition and need for care. Pt appears to be utilizing some level of coping and emotional regulation skills as he has had no outbursts. 10/01- Pt remains psychotic, delusional, withdrawn, isolated and threatening at times. He will not engage on unit and communicates only minimally. He is increasing his compliance with oral medications. Pt has limited insight into condition and need for care. He has limited coping and emotional regulation skills at this time as well. He will be referred for [facility]. 10/04- Pt continues to appear withdrawn and seclusive but was significantly more communicative today. He appeared less agitated and more organized. Pt has been more compliant with medication regiment. He continues to appear internally stimulated. He has been utilizing coping and emotional regulation skills as he has not had any outbursts. Insight and judgment into condition and need for care. He remains on the waiting list for [facility] but is showing improvement with medication. 10/08- Pt continues to appear psychotic and withdrawn but is more communicative. Pt has been struggling to utilize coping and emotional regulation skills as he remains fearful and withdrawn to self. Pt presents with limited insight into condition and need for care. 10/11- Pt appears to be improving on unit with regard to communication and social interaction. He appears less paranoid and watchful on unit. Pt is medication compliant and has increased compliance with other treatment such as lab work. He appears less easily agitated as well suggesting some possible improvement in coping and emotional regulation skills. Pt insight into condition and need for care appeared to be improving. He is willing to be evaluated for placement in an [facility]. Group Spec/RT/OT/RUBIN Present: Harriet Ramires, AUTUMN, SCOTTIE Gillette Adam Lampert, COTA Group Spec/RT/OT/RUBIN Input: Pt does not attend groups. 09/17- Pt is exit seeking at times and has not been attending groups. 09/20- Pt does not attend groups. He isolates to his room. 09/24- Pt is paranoid, isolates to room and does not attend groups. 09/27- SCOTTIE Durham Pt isolates to room and does not attend groups. 10/01- SCOTTIE Gillette Pt does not attend groups. 10/04- SCOTTIE Gillette Pt does not participate in groups and is seclusive. 10/08- Pt isolates and does not attend groups. 10/11- Pt does not attend groups. Discharge Plan [facility]MA Pt will likely need placement after discharge as he is currently homeless and will be referred [facility] as he has been responding poorly to treatment. He will be referred to [facility] if condition improves and this is appropriate. Documentation Scribe: Malcolm Paniagua [facility] Malcolm Paniagua [facility] Oct 11, 2017 14:08
[2017-10-11 18:11] VITALS: BP 126/72; PULSE 120; RESP 19; TEMP 98.7; O2SAT 98
--- NOTE | 2017-10-11 21:32 | EKG ---
Date Performed: 10/11/2017 Time Performed: 08:19:17 PTAGE: 57 years EKG: Sinus rhythm NONSPECIFIC T-WAVE ABNORMALITY BORDERLINE ECG PREVIOUS TRACING : 08/05/2017 07.51 Compared to prior tracing no significant change DOCTOR: Migel Shaikh Interpretating Date/Time 10/11/2017 21:30:06
[2017-10-12 05:53] VITALS: BP 118/58; PULSE 91; RESP 18; TEMP 98.1; O2SAT 97
[2017-10-12] MEDS: CHOLECALCIFEROL (VIT D3) 1000 UNIT TAB PO SCH (08:59)
[2017-10-12] MEDS: risperiDONE ODT 2 MG TAB PO SCH ×2 (08:59→20:09)
[2017-10-12] MEDS: DOCUSATE SODIUM 100 MG CAP PO SCH ×2 (08:59→20:09)
--- NOTE | 2017-10-12 18:00 | HHI.PYPN ---
Subjective Chief Complaint: Psychosis Remarks Patient was seen and case discussed with nursing. Patient is markedly more interactive compared to her meeting 2 weeks ago. He is willing to conduct the interview and answer questions appropriately. He does not admit to any psychotic symptoms today. Though he remained seclusive and is likely internally preoccupied. Compliant with his medications and behaving well on the unit Mental Status Examination Appearance: Disheveled (grooming again slowly improving) Consciousness: Alert Orientation: Person, Place Motor Activity: Other (no motor abnormalities noted) Speech: Unremarkable Language: Adequate Fund of Knowledge: Inadequate Attention and Concentration: Adequate Mood: Appropriate Affect: Other (constricted) Thought Process & Associations: Linear Thought Content: Delusional Hallucination Type: None (denies AVH) Delusion Type: Paranoid (decreasing) Suicidal Ideation: No Suicidal Plan: No Suicidal Intention: No Homicidal Ideation: No Homicidal Plan: No Homicidal Intention: No Insight: Poor Judgment: Poor Results Vitals/IOs Vital Signs Date Time Temp Pulse Resp B/P (MAP) Pulse Ox O2 Delivery O2 Flow Rate FiO2 10/12/17 05:53 98.1 91 18 118/58 (78) 97 Assessment & Plan Problem List: (1) Schizophrenia, undifferentiated, acute episode ICD Codes: F20.3 - Undifferentiated schizophrenia Assessment & Plan Continue current treatment plan Justification for Cont. Inpt. Patient would decompensate in a less restrictive setting Request HC Surrog/Guard Advoc?: Yes Clarence Guzman DO Oct 12, 2017 18:00
[2017-10-12 18:04] VITALS: BP 150/88; PULSE 105; RESP 16; TEMP 98.8; O2SAT 98
[2017-10-13 06:06] VITALS: BP 140/82; PULSE 86; RESP 17; TEMP 97.9; O2SAT 96
[2017-10-13] MEDS: CHOLECALCIFEROL (VIT D3) 1000 UNIT TAB PO SCH (08:22)
[2017-10-13] MEDS: DOCUSATE SODIUM 100 MG CAP PO SCH ×3 (08:22→20:21)
[2017-10-13] MEDS: risperiDONE ODT 2 MG TAB PO SCH ×2 (08:22→20:19)
--- NOTE | 2017-10-13 14:57 | HHI.PYPN ---
Subjective Chief Complaint: Psychosis Remarks Patient was seen and case discussed with nursing. Patient remains more interactive during the interview. He is less irritable, more social. Denies any psychotic symptoms. Denies any auditory or visual hallucinations. Tolerating his medications well Mental Status Examination Appearance: Disheveled (grooming again slowly improving) Consciousness: Alert Orientation: Person, Place Motor Activity: Other (no motor abnormalities noted) Speech: Unremarkable Language: Adequate Fund of Knowledge: Inadequate Attention and Concentration: Adequate Mood: Appropriate Affect: Other (constricted) Thought Process & Associations: Linear Thought Content: Delusional Hallucination Type: None (denies AVH) Delusion Type: Paranoid (decreasing) Suicidal Ideation: No Suicidal Plan: No Suicidal Intention: No Homicidal Ideation: No Homicidal Plan: No Homicidal Intention: No Insight: Poor Judgment: Poor Results Vitals/IOs Vital Signs Date Time Temp Pulse Resp B/P (MAP) Pulse Ox O2 Delivery O2 Flow Rate FiO2 10/13/17 06:06 97.9 86 17 140/82 (101 96 Assessment & Plan Problem List: (1) Schizophrenia, undifferentiated, acute episode ICD Codes: F20.3 - Undifferentiated schizophrenia Assessment & Plan Continue current treatment plan Justification for Cont. Inpt. Patient would decompensate in a less restrictive setting Request HC Surrog/Guard Advoc?: Yes Clarence Guzman DO Oct 13, 2017 14:57
--- NOTE | 2017-10-13 15:37 | HHI.PR ---
Subjective Remarks Follow-up for medical management Patient has no complains. He stated that he is tolerating his diet. Patient denied any pain. He stated he is doing well. Patient stated that he will not have any more blood work done. Objective Vitals Vital Signs Date Time Temp Pulse Resp B/P (MAP) Pulse Ox O2 Delivery O2 Flow Rate FiO2 10/13/17 06:06 97.9 86 17 140/82 (101) 96 10/12/17 18:04 98.8 105 16 150/88 (108) 98 Result Diagram: 10/10/17 0951 Objective Remarks GENERAL: in NAD CARDIOVASCULAR: Regular rate and rhythm without murmurs, gallops, or rubs. RESPIRATORY: Breath sounds equal bilaterally. No accessory muscle use. GASTROINTESTINAL: Abdomen soft, non-tender, nondistended. MUSCULOSKELETAL: No cyanosis, or edema. BACK: Nontender without obvious deformity. No CVA tenderness. Medications and IVs Current Medications Diphenhydramine HCl (Benadryl) 50 mg Q6H PRN PO EPS or insomnia Last administered on 09/10/17t 20:51; Start 09/10/17 at 15:00; Status Future Hold Diphenhydramine HCl (Benadryl Inj) 50 mg Q6H PRN IM EPS, unable to take PO; Start 09/10/17 at 15:00; Status Future Hold Acetaminophen (Tylenol) 650 mg Q4H PRN PO Pain 1-5 or Temp >101F; Start at 15:00 Magnesium Hydroxide (Milk Of Magnesia Liq) 30 ml DAILY PRN PO CONSTIPATION; Start 09/10/17 at 15:00; Stop 10/09/17 at 14:35; Status DC Al Hydrox/Mg Hydrox/Simethicone (Mag-Al Plus Susp Liq) 30 ml Q6H PRN PO DYSPEPSIA; Start 09/10/17 at 15:00 Lorazepam (Ativan) 1 mg Q6H PRN PO ANXIETY; Start 09/11/17 at 12:15; Status Future Hold Lorazepam (Ativan Inj) 1 mg Q6H PRN IM ANXIETY, unable to take PO; Start at 12:15; Status Future Hold Aripiprazole (Abilify) 15 mg DAILY PO ; Start 09/11/17 at 12:15; Stop 09/19/17 at 12:27; Status DC Aripiprazole (Abilify) 15 mg HS PO ; Start 09/19/17 at 21:00; Stop 09/25/17 at 10:45; Status DC Olanzapine (ZyPREXA INJ) 10 mg HS PRN IM Refuses PO Abilify Last administered on 09/24/17 20:55; Start 09/19/17 at 12:30; Stop 09/25/17 at 10:45; Status DC Olanzapine (ZyPREXA INJ) 5 mg DAILY IM Last administered on 09/24/17 10:05; Start 09/23/17 at 11:00; Stop 09/24/17 at 13:11; Status DC Olanzapine (ZyPREXA INJ) 10 mg DAILY IM Last administered on 09/25/17 10:00; Start 09/25/17 at 09:00; Stop 09/25/17 at 10:45; Status DC Olanzapine (ZyPREXA INJ) 10 mg BID PRN IM Refuses PO Zyprexa Last administered on 09/26/17 09:33; Start 09/25/17 at 10:45; Stop 09/26/17 at 14:30; Status DC Olanzapine (ZyPREXA ZYDIS ODT) 10 mg BID PO ; Start 09/25/17 at 21:00; Stop at 14:30; Status DC Olanzapine (ZyPREXA ZYDIS ODT) 10 mg DAILY@0900,1500,2100 PO Last administered on 10/03/17 09:28; Start 09/26/17 at 15:00; Stop 10/03/17 at 13:45; Status DC Olanzapine (ZyPREXA INJ) 10 mg DAILY@0900,1500,2100 PRN IM Refuses PO Zyprexa Last administered on 09/26/17 20:42; Start 09/26/17 at 14:30; Stop 10/03/17 at 13:45; Status DC Aripiprazole (Abilify) 5 mg DAILY PO Last administered on 10/01/17 09:00; Start 09/30/17 at 10:30; Stop 10/01/17 at 11:24; Status DC Aripiprazole (Abilify) 10 mg DAILY PO Last administered on 10/02/17 09:00; Start 10/02/17 at 09:00; Stop 10/02/17 at 15:22; Status DC Aripiprazole (Abilify) 15 mg DAILY PO Last administered on 10/03/17 09:28; Start 10/03/17 at 09:00; Stop 10/03/17 at 13:45; Status DC Aripiprazole (Abilify) 20 mg DAILY PO Last administered on 10/13/17 08:22; Start 10/04/17 at 09:00 Olanzapine (ZyPREXA INJ) 10 mg BID PRN IM Refuses PO Risperdal; Start at 13:45; Stop 10/08/17 at 14:53; Status DC Risperidone (risperDAL M-TAB) 1 mg Q12HR PO Last administered on 10/04/17 09: 00; Start 10/03/17 at 21:00; Stop 10/04/17 at 14:09; Status DC Risperidone (risperDAL M-TAB) 2 mg Q12HR PO Last administered on 10/07/17 09:10 ; Start 10/04/17 at 21:00; Stop 10/07/17 at 10:02; Status DC Ondansetron HCl (Zofran Odt) 4 mg Q6H PRN PO NAUSEA OR VOMITING; Start at 15:00 Cholecalciferol (Vitamin D3) 1,000 units DAILY PO Last administered on 08:22; Start 10/07/17 at 09:00 Risperidone (risperDAL M-TAB) 3 mg Q12HR PO Last administered on 10/09/17 09:27 ; Start 10/07/17 at 21:00; Stop 10/09/17 at 14:35; Status DC Risperidone (RisperDAL CONSTA INJ) 25 mg ONCE ONCE IM Last administered on 10/08 15:00; Start 10/08/17 at 15:00; Stop 10/08/17 at 15:52; Status DC Risperidone (risperDAL M-TAB) 4 mg Q12HR PO Last administered on 10/13/17 08:22 ; Start 10/09/17 at 21:00 Docusate Sodium (Colace) 100 mg BID PO Last administered on 1/6/18at 08:59; Start 10/09/17 at 21:00 Bisacodyl (Dulcolax Ec) 10 mg DAILY PRN PO NO BM IN 24 HOURS; Start 10/09/17 at 14:45 A/P Problem List: (1) Schizophrenia, undifferentiated, acute episode ICD Code: F20.3 - Undifferentiated schizophrenia Assessment and Plan 57-year-old male admitted with schizophrenia and secondary to psychosis displaying aggressive behavior. Nausea with elevation and alkaline phosphatase were present at time of admit. Schizophrenia, paranoid Continue management per psychiatry. Elevated alkaline phosphatase Etiology may be viral Patient is asymptomatic and continues to be mildly elevated, stable. Patient does not want further blood work testing done. I told patient have to f /u outpatient with his doctor. he stated okay. DVT prophylaxis Patient is ambulatory Discharge Planning Patient is medically stable. We'll sign off and follow up when necessary. Valentine Riggins MD Oct 13, 2017 15:37
[2017-10-13 17:29] VITALS: BP 156/99; PULSE 120; RESP 17; TEMP 98.2; O2SAT 98
[2017-10-14 05:45] VITALS: BP 130/85; PULSE 122; PULSE 80; RESP 18; TEMP 97.3; O2SAT 99
[2017-10-14] MEDS: DOCUSATE SODIUM 100 MG CAP PO SCH ×3 (09:00→20:22)
[2017-10-14] MEDS: risperiDONE ODT 2 MG TAB PO SCH ×2 (09:16→20:22)
[2017-10-14] MEDS: CHOLECALCIFEROL (VIT D3) 1000 UNIT TAB PO SCH (09:16)
--- NOTE | 2017-10-14 10:38 | HHI.PYPN ---
Subjective Chief Complaint: Psychosis Remarks Patient seen and examined with nurse. Chart reviewed. Case discussed with nursing staff. On my examination today, the patient is once again more interactive. He is able to tolerate interview off the unit in the consulting room this morning. He is considerably less paranoid. He denies any SI or HI. Denies any AVH. Denies side effects from medications. No physical complaints. I have provided psychoeducation regarding the patient's follow-up prolactin level and implications for treatment. Review of Systems ROS Limitations: Poor Historian Except as stated in HPI: all other systems reviewed are Neg Mental Status Examination Appearance: Other (fair grooming) Consciousness: Alert Orientation: Person, Place Motor Activity: Other (no motoric abnormalities appreciated) Speech: Unremarkable Language: Adequate Fund of Knowledge: Inadequate Attention and Concentration: Adequate Mood: Appropriate Affect: Blunt Thought Process & Associations: Linear Thought Content: Appropriate Hallucination Type: None Delusion Type: Other (some residual guardedness but no pauly paranoia) Suicidal Ideation: No Suicidal Plan: No Suicidal Intention: No Homicidal Ideation: No Homicidal Plan: No Homicidal Intention: No Insight: Poor Judgment: Poor Results Labs Labs reviewed. Follow-up prolactin level 18.0, only mildly elevated. Vitals/IOs Vital Signs Date Time Temp Pulse Resp B/P (MAP) Pulse Ox O2 Delivery O2 Flow Rate FiO2 10/14/17 05:45 97.3 80 18 130/85 (100) 99 Assessment & Plan Problem List: (1) Schizophrenia, undifferentiated, acute episode ICD Codes: F20.3 - Undifferentiated schizophrenia Assessment & Plan Continue with Risperdal and Abilify as ordered. Patient will be due for next dose of Risperdal Consta on 10/22, and we could consider titrating the dose at that time. Prolactin elevation is mild and not significantly different from previous value, and likely is not clinically significant. Continue to monitor on the inpatient unit. Continue other medications and care as ordered. Justification for Cont. Inpt. Risk for decompensation in less restrictive environment Discharge Planning Counselor to work on placement. Case discussed with counselor. Request HC Surrog/Guard Advoc?: Yes Neal Ortiz MD Oct 14, 2017 10:38
[2017-10-14 15:03] VITALS: BP 136/87; PULSE 144; RESP 18; TEMP 99.5; O2SAT 98
[2017-10-15 06:02] VITALS: BP 140/81; PULSE 101; RESP 18; TEMP 98.2; O2SAT 98
[2017-10-15] MEDS: DOCUSATE SODIUM 100 MG CAP PO SCH ×2 (08:47→20:12)
[2017-10-15] MEDS: CHOLECALCIFEROL (VIT D3) 1000 UNIT TAB PO SCH (08:47)
[2017-10-15] MEDS: risperiDONE ODT 2 MG TAB PO SCH ×2 (08:47→20:12)
--- NOTE | 2017-10-15 11:49 | HHI.PYPN ---
Subjective Chief Complaint: Psychosis Remarks Patient seen and examined with nurse. Chart reviewed. Case discussed with nurse and in treatment team. On my examination today, the patient is calm and cooperative with interview. He denies any SI or HI. Denies any AVH. Denies any side effects from medications. No physical complaints. Agreeable to plan for placement. Review of Systems Except as stated in HPI: all other systems reviewed are Neg Mental Status Examination Appearance: Other (continues to exhibit fair grooming) Consciousness: Alert Orientation: Person, Place (at least) Motor Activity: Other (no abnormal motor movements noted. No hand tremor, no cogwheeling, no hypomimia.) Speech: Unremarkable Language: Adequate Fund of Knowledge: Inadequate Attention and Concentration: Adequate Mood: Appropriate Affect: Blunt Thought Process & Associations: Intact, Linear Thought Content: Appropriate Hallucination Type: None Delusion Type: None Suicidal Ideation: No Suicidal Plan: No Suicidal Intention: No Homicidal Ideation: No Homicidal Plan: No Homicidal Intention: No Insight: Poor Judgment: Poor Results Labs Labs reviewed. No new labs. Vitals/IOs Vital Signs Date Time Temp Pulse Resp B/P (MAP) Pulse Ox O2 Delivery O2 Flow Rate FiO2 10/15/17 06:02 98.2 101 18 140/81 (100) 98 Vital signs reviewed. I note intermittent excursions of pulse rate is high as 144/m. Assessment & Plan Problem List: (1) Schizophrenia, undifferentiated, acute episode ICD Codes: F20.3 - Undifferentiated schizophrenia Assessment & Plan Continue current psychotropics as ordered. I will ask the hospitalist to return to evaluate the patient for intermittent tachycardia. I do not think that this is related to agitation or to psychosis as the patient is improving from a psychiatric standpoint. Continue to monitor on the inpatient unit. Continue other medications and care as ordered. Justification for Cont. Inpt. High risk for decompensation in less restrictive environment. Discharge Planning Placement. Case discussed with counselor. Request HC Surrog/Guard Advoc?: Yes Neal Ortiz MD Oct 15, 2017 11:49
--- NOTE | 2017-10-15 14:26 | PD.TTN ---
Patient Problems 1. Discharge planning 2. Medication compliance 3. Knowledge deficit 4. Lack of coping skills Progress Toward Goals Provider Present: Dr. Angelika Ortiz Provider Input: Pt remains psychotic, paranoid and medication regiment will continue to be evaluated as well as adjusted as needed. 09/17- Pt remains unmedicated as there is no GA or HCS at this time and he remains largely psychotic. 09/20- Pt remains psychotic and requiring placement for after discharge. Medication regiment continues to be adjusted including Zyprexa. 09/24- Pt medication regiment remains under evaluation and is being adjusted including titration of Zyprexa 09/27- Pt has been taking his medication through IM as he is refusing oral medication. He will be considered for a new antipsychotic. 10/01- Pt remains psychotic and withdrawn. His medication regiment will be adjusted including increase of Zyprexa and addition of Abilify. He will be referred to [facility] due to poor response to treatment at this time. 10/04- Pt medication regiment has been adjusted to include Risperdal and Abilify. 10/08- Pt has been referred to [facility]. He remains psychotic and regiment has been adjusted to include increase in Risperdal and Abilify. Plan is to implement long acting injection. 10/11- Pt has been more interactive on unit and will be considered for placement in an [facility] due to his improvement. Pt medication regiment will be evaluated and will include a long acting injection form of his medication. 10/15- Pt has been started on Risperdal Consta and has been referred to [facility]. If condition continues to improve, he will be considered for placement at an [facility]. Nurse(s) Present: Sera Cooley RN Nurse(s) Input: Pt appears psychotic with minimal verbal communication. He has been no behavioral issue on unit. 09/20- Lizeth Felix RN Pt appears paranoid, agitated and has been refusing medications. 09/24- Dorys Shepard RN Pt appears anxious, runs away from contact, has been getting his medication through injection and appears withdrawn/psychotic. 09/27- Sylvia Luo RN Pt took medication orally for the first time today but remains largely uncooperative, guarded and with no consistency in behavior. 10/01- Daisy John RN Pt appears paranoid, agitated, aggressive, threatening and with increasing medication compliance. 10/04- Daisy John RN Pt appears seclusive, paranoid and remains no behavioral problem. He has been compliant with medication regiment. 10/08- Shannon Graham RN Pt appears more visible on unit, has been asking for food more and has been compliant with medication regiment though he continues to refuse labs. 10/11- Shannon Graham RN Pt appeared less paranoid, medication compliant, more visible on unit and much improved overall. 10/15- Compa Waters RN Pt has been more visible on the unit, guarded and suspicious but compliant with medication regiment. Psychiatric Counselors Present: Malcolm Paniagua [facility] Psych Therapist Input: Pt appears withdrawn, seclusive, psychotic, cooperative and appropriate. He continues to appear to be responding to internal stimuli. Pt presents with limited coping and emotional regulation skills. Pt has not been on medication to this point as team is awaiting HCS to provide consent for medication as he will not consent. 09/17- Pt continues to appear psychotic, withdrawn, seclusive, guarded and uncooperative. Pt is not currently on any medication as he has no one to serve as a HCS. Pt remains withdrawn and poorly engaged in treatment on unit. He appears quite psychotic and with poor insight into condition and need for care. He appears to be utilizing some level of coping skills as there has been no outbursts on unit. 09/20- Pt has begun to be medicated and was retained by [facility]. He remains psychotic, withdrawn, easily agitated, uncooperative and guarded. He has limited insight into condition and need for care. Pt presents with limited coping and emotional regulation skills as well. He has been refusing his medication. 09/24- Pt continues to appear psychotic, withdrawn, seclusive, paranoid and uncooperative. Pt is poorly engaged in treatment on unit and is often seen pacing while talking to himself. He is somewhat resistant to medication regiment. Pt has poor insight into condition and need for care. He presents with limited coping and emotional regulation skills at this time. 09/27- Pt remains psychotic, delusional, withdrawn, uncooperative and easily agitated. He remains withdrawn to self and room. Pt is not compliant with medication regiment and must be given his medication through IM. He has poor insight into condition and need for care. Pt appears to be utilizing some level of coping and emotional regulation skills as he has had no outbursts. 10/01- Pt remains psychotic, delusional, withdrawn, isolated and threatening at times. He will not engage on unit and communicates only minimally. He is increasing his compliance with oral medications. Pt has limited insight into condition and need for care. He has limited coping and emotional regulation skills at this time as well. He will be referred for [facility]. 10/04- Pt continues to appear withdrawn and seclusive but was significantly more communicative today. He appeared less agitated and more organized. Pt has been more compliant with medication regiment. He continues to appear internally stimulated. He has been utilizing coping and emotional regulation skills as he has not had any outbursts. Insight and judgment into condition and need for care. He remains on the waiting list for [facility] but is showing improvement with medication. 10/08- Pt continues to appear psychotic and withdrawn but is more communicative. Pt has been struggling to utilize coping and emotional regulation skills as he remains fearful and withdrawn to self. Pt presents with limited insight into condition and need for care. 10/11- Pt appears to be improving on unit with regard to communication and social interaction. He appears less paranoid and watchful on unit. Pt is medication compliant and has increased compliance with other treatment such as lab work. He appears less easily agitated as well suggesting some possible improvement in coping and emotional regulation skills. Pt insight into condition and need for care appeared to be improving. He is willing to be evaluated for placement in an [facility]. 10/15- Pt continues to show improvement with regard to expression of emotions, thoughts and with decrease in paranoia. He is more visible on the unit. Pt remains with limited insight into condition and need for care. He appears to be utilizing coping skills to avoid behavioral outbursts. He is compliant with medication regiment. He will be referred to [facility]. Group Spec/RT/OT/RUBIN Present: Harriet Ramires, AUTUMN, SCOTTIE Gillette, SCOTTIE Durham Group Spec/RT/OT/RUBIN Input: Pt does not attend groups. 09/17- Pt is exit seeking at times and has not been attending groups. 09/20- Pt does not attend groups. He isolates to his room. 09/24- Pt is paranoid, isolates to room and does not attend groups. 09/27- SCOTTIE Durham Pt isolates to room and does not attend groups. 10/01- SCOTTIE Gillette Pt does not attend groups. 10/04- SCOTTIE Gillette Pt does not participate in groups and is seclusive. 10/08- Pt isolates and does not attend groups. 10/11- Pt does not attend groups. 10/15- SCOTTIE Durham Pt does not attend groups. Pt is observed in the dayroom with others more often. Discharge Plan SMA Pt will likely need placement after discharge as he is currently homeless and will be referred to [facility] as he has been responding poorly to treatment. He will be referred to [facility] if condition improves and this is appropriate. Documentation Scribe: Malcolm Paniagua Malcolm Pedraza Oct 15, 2017 14:26
[2017-10-15 18:01] VITALS: BP 131/81; PULSE 118; RESP 18; TEMP 97.6; O2SAT 97
[2017-10-16 05:47] VITALS: BP 124/80; PULSE 111; RESP 18; TEMP 97.8; O2SAT 99
[2017-10-16] MEDS: CHOLECALCIFEROL (VIT D3) 1000 UNIT TAB PO SCH (08:59)
[2017-10-16] MEDS: DOCUSATE SODIUM 100 MG CAP PO SCH ×2 (08:59→20:52)
[2017-10-16] MEDS: risperiDONE ODT 2 MG TAB PO SCH ×2 (08:59→20:52)
--- NOTE | 2017-10-16 11:56 | HHI.PYPN ---
Subjective Chief Complaint: Psychosis Remarks Patient seen and examined with counselor. Chart reviewed. Case discussed with nursing staff and with counselor. On my examination today, the patient is calm but somewhat seclusive to room. He is noted to come out and sit in the milieu somewhat more per nursing staff. He denies any SI/HI. He denies any AVH. Hospitalist is seeing patient for tachycardia, and the patient denies any chest pain, palpitations or shortness of breath today for me. He denies any other physical complaints. Denies any side effects from medications. Review of Systems ROS Limitations: Poor Historian Except as stated in HPI: all other systems reviewed are Neg Mental Status Examination Appearance: Other (fair grooming) Consciousness: Alert Orientation: Person, Place (at least) Motor Activity: Other (no motoric abnormalities noted) Speech: Unremarkable Language: Adequate Fund of Knowledge: Inadequate Attention and Concentration: Adequate Mood: Appropriate Affect: Blunt Thought Process & Associations: Intact, Linear Thought Content: Appropriate Hallucination Type: None Delusion Type: None Suicidal Ideation: No Suicidal Plan: No Suicidal Intention: No Homicidal Ideation: No Homicidal Plan: No Homicidal Intention: No Insight: Poor Judgment: Poor Results Labs Labs reviewed. Vitals/IOs Vital Signs Date Time Temp Pulse Resp B/P (MAP) Pulse Ox O2 Delivery O2 Flow Rate FiO2 10/16/17 05:47 97.8 111 18 124/80 (95) 99 Assessment & Plan Problem List: (1) Schizophrenia, undifferentiated, acute episode ICD Codes: F20.3 - Undifferentiated schizophrenia Assessment & Plan Continue oral Risperdal supplementing Risperdal Consta. Next dose of Risperdal Consta is due on 10/22, and we could consider titrating the dose at that time. Continue Abilify as ordered. Follow-up hospitalist recommendations regarding tachycardia, although the patient is presently asymptomatic. Continue to monitor on the inpatient unit. Continue other medications and care as ordered. Justification for Cont. Inpt. Risk for decompensation in less restrictive environment. Discharge Planning Counselor is working on placement for this patient. Request HC Surrog/Guard Advoc?: Yes Neal Ortiz MD Oct 16, 2017 11:56
[2017-10-16 12:34] LABS: ALBUMIN 3.7 GM/DL (3.4-5.0); BICARBONATE 27.9 MEQ/L (21.0-32.0); CALCIUM 8.8 MG/DL (8.5-10.1); CREATININE 0.78 MG/DL (0.60-1.30)
[2017-10-16 12:42] LABS: DIRECT BILIRUBIN ADULT 0.1 MG/DL (0.0-0.2); INDIRECT BILIRUBIN 0.1 MG/DL (0.0-0.8); TOTAL BILIRUBIN ADULT 0.2 MG/DL (0.2-1.0); TOTAL PROTEIN 7.1 GM/DL (6.4-8.2)
--- NOTE | 2017-10-16 14:56 | HHI.PR ---
Subjective Remarks Reconsulted for intermittent tachycardia Patient seen and examined today sitting in chair. Reports he is doing okay. Discussed with patient about tachycardia and plan for an EKG. Patient adamantly refuses EKG stating "I am okay, there is nothing wrong with me my heart is okay." Denies chest pain, palpitations, headaches, dizziness. Denies shortness of breath or dyspnea. Denies fevers, chills, nausea, vomiting, diarrhea. Objective Vitals Vital Signs Date Time Temp Pulse Resp B/P (MAP) Pulse Ox O2 Delivery O2 Flow Rate FiO2 10/16/17 05:47 97.8 111 18 124/80 (95) 99 10/15/17 18:01 97.6 118 18 131/81 (98) 97 Result Diagram: 10/16/17 1130 Objective Remarks GENERAL: This is a well-nourished, well-developed patient, in no apparent distress. Patient was pleasant. SKIN: No rashes, ecchymoses or lesions. Warm and dry. HEAD: Normocephalic. EYES: Pupils equal round and reactive. No scleral icterus. No injection or drainage. ENT: Nose without bleeding. Throat without erythema. Uvula midline. Airway patent. NECK: Trachea midline. CARDIOVASCULAR: Tachycardia without murmurs, gallops, or rubs. RESPIRATORY: Clear to auscultation. Breath sounds equal bilaterally. No wheezes , rales, or rhonchi. GASTROINTESTINAL: Abdomen soft, non-tender, nondistended. Bowel sounds active 4. MUSCULOSKELETAL: Extremities without clubbing, cyanosis, or edema. NEUROLOGICAL: Awake and alert. Motor and sensory grossly within normal limits.Normal speech. A/P Problem List: (1) Schizophrenia, undifferentiated, acute episode ICD Code: F20.3 - Undifferentiated schizophrenia Assessment and Plan Patient is a 57-year-old male with primary medical history of schizophrenia who came into the hospital under [place] act secondary to psychosis displaying aggressive behavior. He is now admitted to inpatient psychiatry unit for further evaluation. Consulted for nausea, elevated alkaline phosphatase, stool changes. Schizophrenia, paranoid - Managed by psychiatry team Tachycardia - May possibly be related to anxiety - EKG ordered. Follow up result. - Reviewed CMP within normal, except for continued elevation in alkaline phosphatase. Previous TSH and free T4 were within normal. - Check CBC, check magnesium. Follow up results. - Restart with low-dose propranolol 10mg BID, may adjust as needed. This may also help with anxiety. Elevated Alk Phos - Monitor intermittently. Needs to be rechecked as fasting as fatty meal may interfere with the results. DVT prop ambulatory Discuss with patient, nursing Christine Burks Oct 16, 2017 14:56
[2017-10-16 16:51] VITALS: BP 132/84; PULSE 116; RESP 18; TEMP 98.1; O2SAT 98
[2017-10-16 18:04] LABS: AUTOMATED NEUTROPHIL # 4.4 TH/MM3 (1.8-7.7); BASOPHIL % 0.6 % (0.0-2.0); EOSINOPHIL # 0.1 TH/MM3 (0-0.4); EOSINOPHIL % 1.8 % (0.0-4.0); HEMATOCRIT 39.2 % (39.0-51.0); HEMOGLOBIN 13.1 GM/DL (13.0-17.0); LYMPH % 31.9 % (9.0-44.0); LYMPHOCYTE # 2.4 TH/MM3 (1.0-4.8); MEAN CELL VOLUME 92.2 FL (80.0-100.0); MEAN CORPUSCULAR HEMOGLOBIN 30.7 PG (27.0-34.0); MEAN CORPUSCULAR HGB CONC 33.3 % (32.0-36.0); MEAN PLATELET VOLUME 6.9 FL (7.0-11.0); MONO % 6.6 % (0.0-8.0); MONOCYTE # 0.5 TH/MM3 (0-0.9); NEUT % 59.1 % (16.0-70.0); PLATELET COUNT 271 TH/MM3 (150-450); RED BLOOD COUNT 4.26 MIL/MM3 (4.50-5.90); RED CELL DISTRIBUTION WIDTH 13.4 % (11.6-17.2); WHITE BLOOD COUNT 7.4 TH/MM3 (4.0-11.0)
[2017-10-17 06:06] VITALS: BP 132/88; PULSE 93; RESP 16; TEMP 97.8; O2SAT 97
[2017-10-17] MEDS: CHOLECALCIFEROL (VIT D3) 1000 UNIT TAB PO SCH (09:00)
[2017-10-17] MEDS: DOCUSATE SODIUM 100 MG CAP PO SCH ×2 (09:00→20:52)
[2017-10-17] MEDS: risperiDONE ODT 2 MG TAB PO SCH ×2 (09:00→20:52)
--- NOTE | 2017-10-17 12:39 | HHI.PR ---
Subjective Remarks Follow-up visit for 57-year-old male admitted to inpatient psychiatry due to paranoid schizophrenia, medical team following due to tachycardia as well as elevated alkaline phosphatase. Patient seen and examined in his room with nurse at bedside. He denies any fevers, chills, nausea, vomiting, diarrhea. Patient denies any chest pains, dizziness, or heart palpitations. He reports that he has been eating well with no acute complaints of abdominal pain. Discussed with nurse, nurse states patient is a lot more interactive today. Objective Vitals Vital Signs Date Time Temp Pulse Resp B/P (MAP) Pulse Ox O2 Delivery O2 Flow Rate FiO2 10/17/17 06:06 97.8 93 16 132/88 (103) 97 10/16/17 16:51 98.1 116 18 132/84 (100) 98 Result Diagram: 10/16/17 1750 10/16/17 1130 Imaging GENERAL: This is a well-nourished, well-developed patient, in no apparent distress. Patient was pleasant. SKIN: No rashes, ecchymoses or lesions. Warm and dry. HEAD: Normocephalic. EYES: Pupils equal round and reactive. No scleral icterus. No injection or drainage. ENT: Nose without bleeding. Airway patent. NECK: Trachea midline. CARDIOVASCULAR: Tachycardia without murmurs, gallops, or rubs. RESPIRATORY: Clear to auscultation. Breath sounds equal bilaterally. No wheezes , rales, or rhonchi. GASTROINTESTINAL: Abdomen soft, non-tender, nondistended. Bowel sounds active 4. MUSCULOSKELETAL: Extremities without clubbing, cyanosis, or edema. NEUROLOGICAL: Awake and alert. Motor and sensory grossly within normal limits.Normal speech. A/P Problem List: (1) Schizophrenia, undifferentiated, acute episode ICD Code: F20.3 - Undifferentiated schizophrenia Assessment and Plan Patient is a 57-year-old male with primary medical history of schizophrenia who came into the hospital under [place] act secondary to psychosis displaying aggressive behavior. He is now admitted to inpatient psychiatry unit for further evaluation. Consulted for nausea, elevated alkaline phosphatase, stool changes. Schizophrenia, paranoid - Managed by psychiatry team Tachycardia - May possibly be related to anxiety - EKG ordered, results reviewed, showing normal sinus rhythm. - Reviewed CMP within normal, except for continued elevation in alkaline phosphatase. Previous TSH and free T4 were within normal. - CBC from 10/16/17 relatively unremarkable. - On low-dose propranolol 10mg BID, HR stable. This may also help with anxiety. - Continue monitoring heart rate. Elevated Alk Phos - 88 on 09/10/17. Patient with increase on 10/01/17 to 213-->251--> 271( fasting)--> 310-->273 - Patient denies any recent bone injury - Continue monitoring intermittently - Consider checking Gamma-glutamyl transpeptidase or 5'-nucleotidase to determine source. DVT prop ambulatory Discuss with patient, nursing Ramonita Damian Oct 17, 2017 12:39
--- NOTE | 2017-10-17 15:09 | HHI.PYPN ---
Subjective Chief Complaint: Psychosis Remarks Patient seen in day room with nurse kiana, patient calm pleasant cooperative allowing the staff to take his vital signs about difficulty. Is compliant medications. At this time he denies voices with me denies suicidality. For now continue treatment Review of Systems Except as stated in HPI: all other systems reviewed are Neg Mental Status Examination Appearance: Other (fair grooming) Consciousness: Alert Orientation: Person, Place (at least) Motor Activity: Other (no motoric abnormalities noted) Speech: Unremarkable Language: Adequate Fund of Knowledge: Inadequate Attention and Concentration: Adequate Mood: Appropriate Affect: Blunt Thought Process & Associations: Intact, Linear Thought Content: Appropriate Hallucination Type: None Delusion Type: None Suicidal Ideation: No Suicidal Plan: No Suicidal Intention: No Homicidal Ideation: No Homicidal Plan: No Homicidal Intention: No Insight: Poor Judgment: Poor Results Labs Test 10/16/17 17:50 White Blood Count 7.4 TH/MM3 Red Blood Count 4.26 MIL/MM3 Hemoglobin 13.1 GM/DL Hematocrit 39.2 % Mean Corpuscular Volume 92.2 FL Mean Corpuscular Hemoglobin 30.7 PG Mean Corpuscular Hemoglobin Concent 33.3 % Red Cell Distribution Width 13.4 % Platelet Count 271 TH/MM3 Mean Platelet Volume 6.9 FL Neutrophils (%) (Auto) 59.1 % Lymphocytes (%) (Auto) 31.9 % Monocytes (%) (Auto) 6.6 % Eosinophils (%) (Auto) 1.8 % Basophils (%) (Auto) 0.6 % Neutrophils # (Auto) 4.4 TH/MM3 Lymphocytes # (Auto) 2.4 TH/MM3 Monocytes # (Auto) 0.5 TH/MM3 Eosinophils # (Auto) 0.1 TH/MM3 Basophils # (Auto) 0.0 TH/MM3 CBC Comment DIFF FINAL Differential Comment Vitals/IOs Vital Signs Date Time Temp Pulse Resp B/P (MAP) Pulse Ox O2 Delivery O2 Flow Rate FiO2 10/17/17 06:06 97.8 93 16 132/88 (103) 97 Assessment & Plan Problem List: (1) Schizophrenia, undifferentiated, acute episode ICD Codes: F20.3 - Undifferentiated schizophrenia Assessment & Plan Estimated LOS: days patient showing no behavior problems at this time compliant medications. Justification for Cont. Inpt. At this time patient decompensated placed a lower level of care Discharge Planning Continue to await word [facility] hospital referral Request HC Surrog/Guard Advoc?: Yes Ketan Falcon MD Oct 17, 2017 15:09
[2017-10-17 17:55] VITALS: BP 117/83; PULSE 119; RESP 18; TEMP 98.4; O2SAT 97
--- NOTE | 2017-10-17 20:50 | EKG ---
Date Performed: 10/16/2017 Time Performed: 16:08:45 PTAGE: 57 years EKG: Sinus rhythm NORMAL ECG SINCE PRIOR TRACING NO SIGNIFICANT CHANGE PREVIOUS TRACING : 10/11/2017 08.19 DOCTOR: Della Almaguer Interpretating Date/Time 10/17/2017 20:49:45
[2017-10-18 05:45] VITALS: BP 127/78; PULSE 88; RESP 16; TEMP 97.9; O2SAT 98
[2017-10-18] MEDS: CHOLECALCIFEROL (VIT D3) 1000 UNIT TAB PO SCH (08:42)
[2017-10-18] MEDS: DOCUSATE SODIUM 100 MG CAP PO SCH ×2 (08:42→20:16)
[2017-10-18] MEDS: risperiDONE ODT 2 MG TAB PO SCH ×2 (08:42→20:16)
--- NOTE | 2017-10-18 12:37 | HHI.PR ---
Subjective Remarks Follow-up visit for 57-year-old male admitted to inpatient psychiatry due to paranoid schizophrenia, medical team following due to tachycardia as well as elevated alkaline phosphatase. Patient seen and examined in his room with nurse at bedside. He is sitting up comfortably eating and states that lab which is here to take blood. He has subsided and states "I don't have that much blood, where are they taking this from". He denies any fevers, chills, nausea, vomiting, diarrhea, abdominal pain, cough, shortness of breath, or headache. Objective Vitals Vital Signs Date Time Temp Pulse Resp B/P (MAP) Pulse Ox O2 Delivery O2 Flow Rate FiO2 10/18/17 05:45 97.9 88 16 127/78 (94) 98 10/17/17 17:55 98.4 119 18 117/83 (94) 97 Result Diagram: 10/16/17 1750 10/16/17 1130 Objective Remarks GENERAL: This is a well-nourished, well-developed patient, in no apparent distress. Patient expresses frustration over lab work. SKIN: No rashes, ecchymoses or lesions. Warm and dry. HEAD: Normocephalic. EYES: Pupils equal round and reactive. No scleral icterus. No injection or drainage. ENT: Nose without bleeding. Airway patent. NECK: Trachea midline. CARDIOVASCULAR: Tachycardia without murmurs, gallops, or rubs. RESPIRATORY: Clear to auscultation. Breath sounds equal bilaterally. No wheezes , rales, or rhonchi. GASTROINTESTINAL: Abdomen soft, non-tender, nondistended. Bowel sounds active 4. MUSCULOSKELETAL: Extremities without clubbing, cyanosis, or edema. NEUROLOGICAL: Awake and alert. Motor and sensory grossly within normal limits.Normal speech. A/P Problem List: (1) Schizophrenia, undifferentiated, acute episode ICD Code: F20.3 - Undifferentiated schizophrenia Assessment and Plan Patient is a 57-year-old male with primary medical history of schizophrenia who came into the hospital under [place] act secondary to psychosis displaying aggressive behavior. He is now admitted to inpatient psychiatry unit for further evaluation. Consulted for nausea, elevated alkaline phosphatase, stool changes. Schizophrenia, paranoid - Managed by psychiatry team - Nurse reports he has been doing better although today seems agitated due to labwork. Tachycardia - May possibly be related to anxiety. - EKG ordered, results reviewed, showing normal sinus rhythm. - Reviewed CMP within normal, except for continued elevation in alkaline phosphatase. Previous TSH and free T4 were within normal. - CBC from 10/16/17 relatively unremarkable. - On low-dose propranolol 10mg BID, HR stable this morning. This may also help with anxiety. - Continue monitoring heart rate. Elevated Alk Phos - 88 on 09/10/17. Patient with increase on 10/01/17 to 213-->251--> 271( fasting)--> 310-->273-->243 - Patient denies any recent bone injury - Continue monitoring intermittently - Consider checking Gamma-glutamyl transpeptidase or 5'-nucleotidase to determine source. DVT prop ambulatory Discuss with patient, nursing Ramonita Damian Oct 18, 2017 12:37
[2017-10-18 12:59] LABS: ALBUMIN 3.4 GM/DL (3.4-5.0); AST (GOT) 18 U/L (15-37); BICARBONATE 27.7 MEQ/L (21.0-32.0); BLOOD UREA NITROGEN 12 MG/DL (7-18); CALCIUM 8.5 MG/DL (8.5-10.1); CHLORIDE 105 MEQ/L (98-107); CREATININE 0.82 MG/DL (0.60-1.30); GLOMERULAR FILTRATION RATE 98 ML/MIN (>89); GLUCOSE,RANDOM 122 MG/DL (74-106); SODIUM (NA) 139 MEQ/L (136-145)
[2017-10-18 13:04] LABS: ALKALINE PHOSPHATASE 243 U/L (45-117); ALT (GPT) 36 U/L (12-78); TOTAL BILIRUBIN ADULT 0.2 MG/DL (0.2-1.0); TOTAL PROTEIN 6.6 GM/DL (6.4-8.2)
--- NOTE | 2017-10-18 15:57 | HHI.PYPN ---
Subjective Chief Complaint: Psychosis Remarks Patient seen in his room with nurse Fanny, chart review, patient compliant medications. Patient calm cooperative no behavioral problems. Denying suicidality. Denying voices with me today also Review of Systems Except as stated in HPI: all other systems reviewed are Neg Mental Status Examination Appearance: Other (fair grooming) Consciousness: Alert Orientation: Person, Place (at least) Motor Activity: Other (no motoric abnormalities noted) Speech: Unremarkable Language: Adequate Fund of Knowledge: Inadequate Attention and Concentration: Adequate Mood: Appropriate Affect: Blunt Thought Process & Associations: Intact, Linear Thought Content: Appropriate Hallucination Type: None Delusion Type: None Suicidal Ideation: No Suicidal Plan: No Suicidal Intention: No Homicidal Ideation: No Homicidal Plan: No Homicidal Intention: No Insight: Poor Judgment: Poor Results Labs Test 10/18/17 12:10 Blood Urea Nitrogen 12 MG/DL Creatinine 0.82 MG/DL Random Glucose 122 MG/DL Total Protein 6.6 GM/DL Albumin 3.4 GM/DL Calcium Level 8.5 MG/DL Alkaline Phosphatase 243 U/L Aspartate Amino Transf (AST/SGOT) 18 U/L Alanine Aminotransferase (ALT/SGPT) 36 U/L Total Bilirubin 0.2 MG/DL Sodium Level 139 MEQ/L Potassium Level 3.6 MEQ/L Chloride Level 105 MEQ/L Carbon Dioxide Level 27.7 MEQ/L Anion Gap 6 MEQ/L Estimat Glomerular Filtration Rate 98 ML/MIN Vitals/IOs Vital Signs Date Time Temp Pulse Resp B/P (MAP) Pulse Ox O2 Delivery O2 Flow Rate FiO2 10/18/17 05:45 97.9 88 16 127/78 (94) 98 Assessment & Plan Problem List: (1) Schizophrenia, undifferentiated, acute episode ICD Codes: F20.3 - Undifferentiated schizophrenia Assessment & Plan Estimated LOS: days patient calm cooperative no behavior problems. Remain somewhat vigilant but denies voices with me today Justification for Cont. Inpt. At this time patient decompensate if not placed in an appropriate level of care Discharge Planning Continue to await word from the [facility] Request HC Surrog/Guard Advoc?: Yes Ketan Falcon MD Oct 18, 2017 15:57
[2017-10-18 17:09] VITALS: BP 137/88; PULSE 113; RESP 16; TEMP 98.1; O2SAT 99
[2017-10-19 06:02] VITALS: BP 115/69; PULSE 69; RESP 18; TEMP 97.3; O2SAT 97
[2017-10-19] MEDS: CHOLECALCIFEROL (VIT D3) 1000 UNIT TAB PO SCH (08:47)
[2017-10-19] MEDS: risperiDONE ODT 2 MG TAB PO SCH ×2 (08:48→21:25)
[2017-10-19] MEDS: DOCUSATE SODIUM 100 MG CAP PO SCH ×2 (09:00→21:25)
--- NOTE | 2017-10-19 12:34 | HHI.PYPN ---
Subjective Chief Complaint: Psychosis Remarks Pt seen and discussed with staff. He remains seclusive with limited interactions with staff and peers. He is compliant with medications and care. No agitation or aggression. Some internal stimulation persists. Mental Status Examination Appearance: Other (fair grooming) Consciousness: Alert Orientation: Person, Place (at least) Motor Activity: Other (no motoric abnormalities noted) Speech: Unremarkable Language: Adequate Fund of Knowledge: Inadequate Attention and Concentration: Adequate Mood: Appropriate Affect: Blunt Thought Process & Associations: Intact, Linear Thought Content: Appropriate Hallucination Type: None Delusion Type: None Suicidal Ideation: No Suicidal Plan: No Suicidal Intention: No Homicidal Ideation: No Homicidal Plan: No Homicidal Intention: No Insight: Poor Judgment: Poor Results Vitals/IOs Vital Signs Date Time Temp Pulse Resp B/P (MAP) Pulse Ox O2 Delivery O2 Flow Rate FiO2 10/19/17 06:02 97.3 69 18 115/69 (84) 97 Assessment & Plan Problem List: (1) Schizophrenia, undifferentiated, acute episode ICD Codes: F20.3 - Undifferentiated schizophrenia Assessment & Plan Continue current tx plan. Estimated LOS: days Justification for Cont. Inpt. risk of decompensation Request HC Surrog/Guard Advoc?: Yes Riana Pope MD Oct 19, 2017 12:34
--- NOTE | 2017-10-19 14:24 | HHI.PR ---
Subjective Remarks Follow-up visit on 57-year-old male admitted to inpatient psychiatry due to paranoid schizophrenia, follow-up on tachycardia, elevated alkaline phosphatase. Patient seen and examined in his room, denies any fevers, chills, nausea, vomiting, diarrhea, chest pains, or heart palpitations. He reports that he is moving his bowels without any issues, voiding without any dysuria. Objective Vitals Vital Signs Date Time Temp Pulse Resp B/P (MAP) Pulse Ox O2 Delivery O2 Flow Rate FiO2 10/19/17 06:02 97.3 69 18 115/69 (84) 97 10/18/17 17:09 98.1 113 16 137/88 (104) 99 Result Diagram: 10/16/17 1750 10/18/17 1210 Objective Remarks GENERAL: This is a well-nourished, well-developed patient, in no apparent distress. SKIN: No rashes, ecchymoses or lesions. Warm and dry. HEAD: Normocephalic. EYES: Pupils equal round and reactive. No scleral icterus. No injection or drainage. ENT: Nose without bleeding. Airway patent. NECK: Trachea midline. CARDIOVASCULAR: Regular rate and rhythm without murmurs, gallops, or rubs. RESPIRATORY: Clear to auscultation. Breath sounds equal bilaterally. No wheezes , rales, or rhonchi. GASTROINTESTINAL: Abdomen soft, non-tender, nondistended. Bowel sounds active 4. MUSCULOSKELETAL: Extremities without clubbing, cyanosis, or edema. NEUROLOGICAL: Awake and alert. Motor and sensory grossly within normal limits.Normal speech. A/P Problem List: (1) Schizophrenia, undifferentiated, acute episode ICD Code: F20.3 - Undifferentiated schizophrenia Assessment and Plan Patient is a 57-year-old male with primary medical history of schizophrenia who came into the hospital under [place] act secondary to psychosis displaying aggressive behavior. He is now admitted to inpatient psychiatry unit for further evaluation. Consulted for nausea, elevated alkaline phosphatase, stool changes. Schizophrenia, paranoid - Managed by psychiatry team - Patient appears to be more calm today, nurse reports that patient is more interactive. Tachycardia - May possibly be related to anxiety. - EKG ordered, results reviewed, showing normal sinus rhythm. - Reviewed CMP within normal, except for continued elevation in alkaline phosphatase. Previous TSH and free T4 were within normal. - CBC from 10/16/17 relatively unremarkable. - On low-dose propranolol 10mg BID, HR stable this morning. This may also help with anxiety. - Continue monitoring heart rate. Elevated Alk Phos - 88 on 09/10/17. Patient with increase on 10/01/17 to 213-->251--> 271( fasting)--> 310-->273-->243 - Patient denies any recent bone injury - Continue monitoring intermittently - Consider checking Gamma-glutamyl transpeptidase or 5'-nucleotidase to determine source. DVT prop ambulatory Discuss with patient, nursing Ramonita Damian Oct 19, 2017 14:24
[2017-10-19 17:13] VITALS: BP 142/88; PULSE 85; RESP 18; TEMP 98.7; O2SAT 98
[2017-10-20] MEDS: risperiDONE ODT 2 MG TAB PO SCH ×2 (08:38→21:10)
[2017-10-20] MEDS: CHOLECALCIFEROL (VIT D3) 1000 UNIT TAB PO SCH (08:38)
[2017-10-20] MEDS: DOCUSATE SODIUM 100 MG CAP PO SCH ×2 (09:00→21:00)
--- NOTE | 2017-10-20 11:04 | HHI.PYPN ---
Subjective Chief Complaint: Psychosis Remarks Pt seen and discussed with staff. He remains seclusive to room but comes out to eat. He has beencompliant with medications and denies side effects. No agitation or behavioral issues on unit. Mental Status Examination Appearance: Other (fair grooming) Consciousness: Alert Orientation: Person, Place (at least) Motor Activity: Other (no motoric abnormalities noted) Speech: Unremarkable Language: Adequate Fund of Knowledge: Inadequate Attention and Concentration: Adequate Mood: Appropriate Affect: Blunt Thought Process & Associations: Intact, Linear Thought Content: Appropriate Hallucination Type: None Delusion Type: None Suicidal Ideation: No Suicidal Plan: No Suicidal Intention: No Homicidal Ideation: No Homicidal Plan: No Homicidal Intention: No Insight: Poor Judgment: Poor Results Vitals/IOs Vital Signs Date Time Temp Pulse Resp B/P (MAP) Pulse Ox O2 Delivery O2 Flow Rate FiO2 10/19/17 17:13 98.7 85 18 142/88 (106) 98 Assessment & Plan Problem List: (1) Schizophrenia, undifferentiated, acute episode ICD Codes: F20.3 - Undifferentiated schizophrenia Assessment & Plan Continue current tx plan and discharge planning Estimated LOS: days Justification for Cont. Inpt. risk of decompensation Request HC Surrog/Guard Advoc?: Yes Riana Pope MD Oct 20, 2017 11:04
--- NOTE | 2017-10-20 14:17 | HHI.PR ---
Subjective Remarks Follow-up visit on 57-year-old male admitted to inpatient psychiatry due to paranoid schizophrenia, follow-up on tachycardia, elevated alkaline phosphatase. Patient seen and examined in his room with nurse at bedside, spoke with nurses states patient continues to be seclusive. Patient denying any abdominal pain, changes in stools, nausea, vomiting, diarrhea. He is also denying any cough, shortness of breath, chest pain, fevers or chills. He voices no acute complaints. Objective Vitals Vital Signs Date Time Temp Pulse Resp B/P (MAP) Pulse Ox O2 Delivery O2 Flow Rate FiO2 10/19/17 17:13 98.7 85 18 142/88 (106) 98 Result Diagram: 10/16/17 1750 10/18/17 1210 Objective Remarks GENERAL: This is a well-nourished, well-developed patient, in no apparent distress. SKIN: No rashes, ecchymoses or lesions. Warm and dry. HEAD: Normocephalic. EYES: Pupils equal round and reactive. No scleral icterus. No injection or drainage. ENT: Nose without bleeding. Airway patent. NECK: Trachea midline. CARDIOVASCULAR: Regular rate and rhythm without murmurs, gallops, or rubs. RESPIRATORY: Clear to auscultation. Breath sounds equal bilaterally. No wheezes , rales, or rhonchi. GASTROINTESTINAL: Abdomen soft, non-tender, nondistended. Bowel sounds active 4. MUSCULOSKELETAL: Extremities without clubbing, cyanosis, or edema. NEUROLOGICAL: Awake and alert. Motor and sensory grossly within normal limits.Normal speech. A/P Problem List: (1) Schizophrenia, undifferentiated, acute episode ICD Code: F20.3 - Undifferentiated schizophrenia Assessment and Plan Patient is a 57-year-old male with primary medical history of schizophrenia who came into the hospital under [place] act secondary to psychosis displaying aggressive behavior. He is now admitted to inpatient psychiatry unit for further evaluation. Consulted for nausea, elevated alkaline phosphatase, stool changes. Schizophrenia, paranoid - Managed by psychiatry team Tachycardia - May possibly be related to anxiety. - EKG ordered, results reviewed, showing normal sinus rhythm. - Previous TSH and free T4 were within normal. - CBC from 10/16/17 relatively unremarkable. - On low-dose propranolol 10mg BID, HR stable this morning. This may also help with anxiety. - Heart rate continues to be stable Elevated Alk Phos - 88 on 09/10/17. Patient with increase on 10/01/17 to 213-->251--> 271( fasting)--> 310-->273-->243 - Patient denies any recent bone injury DVT prop ambulatory Patient discussed with . Will signs off please reconsult if needed. Ramonita Damian Oct 20, 2017 14:17
[2017-10-20 17:49] VITALS: BP 135/73; PULSE 72; RESP 18; TEMP 98.2; O2SAT 99
[2017-10-21 06:13] VITALS: BP 114/70; PULSE 72; RESP 17; TEMP 97.6; O2SAT 97
[2017-10-21] MEDS ORDERED: CHOL1000 PO (08:53)
[2017-10-21] MEDS ORDERED: ARIP1TAB14 PO (08:53)
[2017-10-21] MEDS ORDERED: RISP4TAB41 PO (08:53)
[2017-10-21] MEDS ORDERED: DOCU1CAP39 PO (08:53)
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
[2017-10-21] MEDS: DOCUSATE SODIUM 100 MG CAP PO SCH ×2 (09:00→09:47)
--- NOTE | 2017-10-21 09:44 | RADRPT ---
EXAM DATE/TIME: 10/21/2017 08:53 [place] COMPARISON: No previous studies available for comparison. INDICATIONS : Preplacement [facility]O. Evalute for communicable disease. MEDICAL HISTORY : None. SURGICAL HISTORY : None. ENCOUNTER: Initial ACUITY: 1 day PAIN SCORE: 0/10 LOCATION: Bilateral chest FINDINGS: A single view of the chest demonstrates the lungs to be symmetrically aerated without evidence of mas s, infiltrate or effusion. The cardiomediastinal contours are unremarkable. Osseous structures reve al healing or healed right rib fractures 9 and 10. CONCLUSION: No acute cardiopulmonary disease Darrian Shoemaker MD on October 21, 2017 at 9:41 Board Certified Radiologist. This report was verified electronically.
[2017-10-21] MEDS: CHOLECALCIFEROL (VIT D3) 1000 UNIT TAB PO SCH (09:47)
[2017-10-21] MEDS: risperiDONE ODT 2 MG TAB PO SCH (09:47)
== END 2017-10-21 14:15 | DRG 885 ==
LOC: NEPE 21:23 → NEDA 09-10 15:04 → H270 09-10 17:50
PROVIDERS: ADMIT Psychiatry & Neurology Psychiatry; ATTEND Psychiatry & Neurology Psychiatry
DX: F20.3 Undifferentiated schizophrenia (principal); R74.8 Abnormal levels of other serum enzymes; K59.00 Constipation, unspecified; R11.0 Nausea; R00.0 Tachycardia, unspecified; R19.7 Diarrhea, unspecified; Z79.899 Other long term (current) drug therapy; Z87.891 Personal history of nicotine dependence; Z91.14 Patient's other noncompliance with medication regimen
CPT/HCPCS: 71045; 80048; 80053; 80076; 80307; 82306; 82977; 83735; 83970; 84146; 84439; 84443; 85025; 93005; 99285; J2794; Q0163